=== PATIENT | female | born 1995 | race Caucasian/White ===

== ENCOUNTER 2017-04-22 20:12 | Emergency (ER) | payer BC, SELFPAY ==
[2017-04-22 20:59] VITALS: BP 159/100; PULSE 119; RESP 20; TEMP 36.6; O2SAT 97; BMI 51.6
--- NOTE | 2017-04-22 21:34 | HMH.EDUTC ---
[facility] Disposition Clinical Impression: Tinea corporis Disposition: Home, Self-Care Condition on Discharge: Good Instructions: DI for Tinea Corporis Additional Instructions: read attached education Prescriptions: Ketoconazole [Ketoconazole 2% Cream 15gm] 1 applicatio TOPICAL Q12H #15 gm Referrals: Ana David [Primary Care Provider] - (Immediately for new or worsening symptoms, if no steady improvement or if unresolved in 4 weeks) Time of Disposition: 21:52 Medical Decision Making Vital Signs: 04/22/17 20:59 Temperature 97.9 F Temperature Source Temporal Artery Scan Pulse Rate [Brachial] 119 H Respiratory Rate 20 Blood Pressure [Left Arm] 159/100 Blood Pressure Mean [Left Arm] 119 Blood Pressure Source [Left Arm] Automatic Cuff Blood Pressure Position [Left Arm] Sitting 02 Sat by Pulse Oximetry 97 Oxygen Delivery Method Room Air - Chapo Inquiry Pt receiving controlled substance: No [facility] HPI - General Stated complaint: rash behind both knees Time Seen by Provider: 04/22/17 21:34 Mode of Arrival: Ambulatory Source of Information: Patient Limitations: No Limitations Description of Symptoms (Recalled from Triage Doc. by RN): PT HAS RED [place] AREA ON THE BACK ON BOTH KNEES 4 INCHES IN DIAMETER, PRESENT FOR 1 WEEK AND NOW HAS PAIN. HEENT Symptoms (Recalled from RN notes): No Resp Symptoms (Recalled from RN notes): No Skin Symptoms (Recalled from RN notes): Yes MS Symptoms (Recalled from RN notes): No Functional Status (Recalled from RN notes): NA - History of Present Illness Provider Complaint: c/o rash behind shellie knees. First saw it today but had noticed burning /irritation there for nearly one week. I just thought dry skin Hasn't taken or tried anything for it. No one else at home w/ rash. No new contacts, meds, foods. Does have animals at home. two dogs that are both itching. again I just though due to dry skin . Spouse reports once does have a patch of hair missing. Hasn't paid attention to what the skin there looks like. They let this particular dog sleep in the bed 1-2 weeks ago. oh my gosh. right around the time this all started. - Related Data Home Medications Medication Instructions Recorded Confirmed Ferrous Sulfate [Ferrous Sulfate 325 mg PO DAILY 04/22/17 04/22/17 325mg Tablet] Levothyroxine Sodium [Synthroid 50 mcg PO DAILY 04/22/17 04/22/17 50mcg (0.05mg) tab] Lisinopril [Lisinopril 10mg Tab] 10 mg PO DAILY 04/22/17 04/22/17 Previous Rx's Medication Instructions Recorded Ketoconazole [Ketoconazole 2% 1 applicatio TOPICAL Q12H #15 gm 04/22/17 Cream 15gm] Allergies Allergy/AdvReac Type Severity Reaction Status Date / Time morphine Allergy Intermediate I-HIVES Verified 04/22/17 21:06 - Worker's Comp Is this a Worker's Comp case?: No H History I have reviewed the patient's past medical history: Yes Comment: HTN, hypothyroidism, scoliosis Other Surgeries: Yes: Other (scoliosis 2007 and ORIF 2015) Fractures: Yes (RT ARM 2015) - *Social History Alcohol Intake: never - Psychiatric History Expresses thoughts of harming self/others: None Suicide Plan Description: No Plan ROS Obtained: Yes Systems reviewed as appropropriate & no additional complaint - Constitutional Denies body ache(s), Denies chills, Denies fatigue, Denies fever(s) - Eyes Denies itchy eyes - ENT Denies sore throat - Respiratory Denies shortness of breath - Gastrointestinal Denies nausea, Denies vomiting - Musculoskeletal Denies joint pain - Integumentary/Breasts Reports rash - Neurologic Denies numbness, Denies tingling Physical Exam - General General appearance: alert, obese - Respiratory Respiratory exam: Absent: respiratory distress - Cardiovascular Cardiovascular exam: Present: tachycardia - Extremities Exam Extremities exam: Present: other (FROM shellie knee, nontender) - Neurological Exam Neurological exam: Present: alert, or
--- NOTE | 2017-04-22 21:38 | ED_ITS ---
[facility] [place] Impression: Tinea corporis Disposition: Home, Self-Care Condition on Discharge: Good Instructions: DI for Tinea Corporis Additional Instructions: read attached education Prescriptions: Ketoconazole [Ketoconazole 2% Cream 15gm] 1 applicatio TOPICAL Q12H #15 gm Referrals: Ana David [Primary Care Provider] - (Immediately for new or worsening symptoms, if no steady improvement or if unresolved in 4 weeks) Time of Disposition: 21:52 Medical Decision Making Vital Signs: 04/22/17 20:59 Temperature 97.9 F Temperature Source Temporal Artery Scan Pulse Rate [Brachial] 119 H Respiratory Rate 20 Blood Pressure [Left Arm] 159/100 Blood Pressure Mean [Left Arm] 119 Blood Pressure Source [Left Arm] Automatic Cuff Blood Pressure Position [Left Arm] Sitting 02 Sat by Pulse Oximetry 97 Oxygen Delivery Method Room Air - Chapo Inquiry Pt receiving controlled substance: No [facility] [place] - General Stated complaint: rash behind both knees Time Seen by Provider: 04/22/17 21:34 Mode of Arrival: Ambulatory Source of Information: Patient Limitations: No Limitations Description of Symptoms (Recalled from Triage Doc. by RN): PT HAS RED [place] AREA ON THE BACK ON BOTH KNEES 4 INCHES IN DIAMETER, PRESENT FOR 1 WEEK AND NOW HAS PAIN. HEENT Symptoms (Recalled from RN notes): No Resp Symptoms (Recalled from RN notes): No Skin Symptoms (Recalled from RN notes): Yes MS Symptoms (Recalled from RN notes): No Functional Status (Recalled from RN notes): NA - History of Present Illness Provider Complaint: c/o rash behind shellie knees. First saw it today but had noticed burning /irritation there for nearly one week. I just thought dry skin Hasn't taken or tried anything for it. No one else at home w/ rash. No new contacts, meds, foods. Does have animals at home. two dogs that are both itching. again I just though due to dry skin . Spouse reports once does have a patch of hair missing. Hasn't paid attention to what the skin there looks like. They let this particular dog sleep in the bed 1-2 weeks ago. oh my gosh. right around the time this all started. - Related Data Home Medications Medication Instructions Recorded Confirmed Ferrous Sulfate [Ferrous Sulfate 325 mg PO DAILY 04/22/17 04/22/17 325mg Tablet] Levothyroxine Sodium [Synthroid 50 mcg PO DAILY 04/22/17 04/22/17 50mcg (0.05mg) tab] Lisinopril [Lisinopril 10mg Tab] 10 mg PO DAILY 04/22/17 04/22/17 Previous Rx's Medication Instructions Recorded Ketoconazole [Ketoconazole 2% 1 applicatio TOPICAL Q12H #15 gm 04/22/17 Cream 15gm] Allergies Allergy/AdvReac Type Severity Reaction Status Date / Time morphine Allergy Intermediate I-HIVES Verified 04/22/17 21:06 - Worker's Comp Is this a Worker's Comp case?: No H History I have reviewed the patient's past medical history: Yes Comment: HTN, hypothyroidism, scoliosis Other Surgeries: Yes: Other (scoliosis 2007 and ORIF 2015) Fractures: Yes (RT ARM 2015) - *Social History Alcohol Intake: never - Psychiatric History Expresses thoughts of harming self/others: None Suicide Plan Description: No Plan ROS Obtained: Yes Systems reviewed as appropropriate & no additional complaint - Constitutional Denies body ache(s), Denies chills, Denies fatigue, Denies fe
== END 2017-04-22 21:53 | disposition home or self-care (01) ==
PROVIDERS: Emergency Provider Nurse Practitioner Family; PCP Physician Assistant
DX: B35.4 Tinea corporis (principal); Z79.899 Other long term (current) drug therapy; I10 Essential (primary) hypertension; E03.9 Hypothyroidism, unspecified
CPT/HCPCS: 99202

== ENCOUNTER 2021-04-16 11:06 | Emergency (ER) | payer BC, SELFPAY ==
[2021-04-16 12:30] VITALS: BP 174/107; PULSE 86; RESP 16; TEMP 36.7; O2SAT 95; BMI 52.9
--- NOTE | 2021-04-16 12:41 | HMH.EDUTC ---
[facility] [place]: Adverse effects of medication Qualifiers: Encounter type: initial encounter Qualified Code(s): T50.905A - Adverse effect of unspecified drugs, medicaments and biological substances, initial encounter Disposition: Home, Self-Care Condition on Discharge: Good Instructions: Venlafaxine Additional Instructions: Follow up with the Doctor that prescribed your medication for adjustments and/or Changes Follow up with your Family Doctor for further treatment Go straight to the closest ER if your blood pressure continues to elevate or any worsening of symptoms Return if needed Referrals: Peg Seth APRN [Primary Care Provider] - As needed Time of Disposition: 12:55 Medical Decision Making - Chapo Inquiry Pt receiving controlled substance: No Chapo was queried for this patient: No Vital Signs: 04/16/21 12:30 04/16/21 12:59 Temperature 98.1 F 98.1 F Temperature Source Oral Pulse Rate 86 Pulse Rate [Left] 86 Respiratory Rate 16 16 Blood Pressure 174/107 H Blood Pressure [Right Arm] 174/107 H Blood Pressure Mean [Right Arm] 129 02 Sat by Pulse Oximetry 95 Medical Decision Narrative: Discussed with patient and recommended transfer to the ER for further work up and evaluation and patient declined Patient advised that we do not typically adjust anxiety/depression medication that is usually done by PCP or Behavioral Health Patient educated on elevated blood pressure and risks even and she still declined transfer States that she will try to get into the Doctor that prescribed the medication and go from there that she had already been to 2 different ER and no one had changed it [facility] [place] General Stated complaint: congestion Time Seen by Provider: 04/16/21 12:41 Mode of Arrival: Ambulatory Source of Information: Patient Limitations: No Limitations Description of Symptoms (Recalled from Triage Doc. by RN): 1wk ago pt was seen at [facility] and put on effexor for anxiety. pt went to [facility] last night and was told she is having an adverse reaction. pt is still taking effexor at this time. pt c/o dizziness, elevated BP, shakiness, and READ. HEENT Symptoms (Recalled from RN notes): Yes (dizziness and READ) Resp Symptoms (Recalled from RN notes): No Skin Symptoms (Recalled from RN notes): No MS Symptoms (Recalled from RN notes): No Functional Status (Recalled from RN notes): wnl - History of Present Illness Provider Complaint: Patient state that she was recently seen at [facility] and was put on Effexor States that she noticed she was having some side effects of the medication like dizzy, headache and blood pressure elevated State that she went to [facility] ER last night and they told her it was adverse effects of the medication and she needed to see someone to change her medication State that she tried to get into the Doctor that prescribed it and couldnt and then tried her PCP and she was out of town State that everyone she called told her to come in here to get the medication adjusted or changed - Related Data Home Medications Medication Instructions Recorded Confirmed Ferrous Sulfate [Iron] 325 mg PO DAILY 06/08/19 06/08/19 Fluoxetine HCl [Prozac] 20 mg PO DAILY 06/08/19 06/08/19 Levothyroxine Sodium [Synthroid 200 mcg PO DAILY 06/08/19 06/08/19 100mcg (0.1mg) tablet] Metformin HCl [Metformin HCl ER] 750 mg PO DAILY 06/08/19 06/08/19 lisinopriL [Lisinopril 20mg Tab] 20 mg PO DAILY 06/08/19 06/08/19 Allergies Allergy/AdvReac Type Severity Reaction Status Date / Time morphine Allergy Intermediate I-HIVES Verified 04/22/17 21:06 rituximab [From Rituxan] Allergy Verified 04/16/21 12:38 - Worker's Comp Is this a Worker's Comp case?: No [facility] History - Hepatitis A Screen Drug use history?: No High risk sexual behaviors?: No History of sexually transmitted infection?: No Currently employed?: No Childcare worker?: No Do you have indoor plumbing?: Yes Do you have
[2021-04-16 12:59] VITALS: BP 174/107; PULSE 86; RESP 16; TEMP 36.7
--- NOTE | 2021-04-16 13:00 | PC.NURSE ---
pt declines being sent to the ER for elevated BP and further work up.
== END 2021-04-16 13:02 | disposition home or self-care (01) ==
PROVIDERS: Emergency Provider Nurse Practitioner; PCP Nurse Practitioner Family
DX: T50.905A Adverse effect of unspecified drugs, medicaments and biological substances, initial encounter (principal); I16.1 Hypertensive emergency; R42 Dizziness and giddiness; F41.8 Other specified anxiety disorders; E11.9 Type 2 diabetes mellitus without complications; Z79.899 Other long term (current) drug therapy
CPT/HCPCS: 99202; G0463

== ENCOUNTER → 2022-02-03 09:20 | Outpatient (CLI) | payer BC, SELFPAY ==
[2022-02-03 20:33] LABS: Alanine Aminotransferase 26 U/L (12-78); Albumin Level 3.6 g/dl (3.5-5.0); Albumin/Globulin Ratio 1.6 (1.1-1.8); Alkaline Phosphatase 136 U/L (38-126); Anion Gap 14.4 mEq/L (5-15); Aspartate Amino Transferase 25 U/L (14-36); Bilirubin,Total 0.4 mg/dl (0.2-1.3); Blood Urea Nitrogen 10 mg/dl (7-17); Calcium 8.8 mg/dl (8.4-10.2); Carbon Dioxide 28 mmol/L (22.0-30.0); Chloride 99 mmol/L (98-107); Chol/HDL Ratio 4.5 (1-3.5); Cholesterol 183 mg/dl (140-200); Estimated Glomerular Filt Rate 119 ml/min (>60); GFR (African American) 144 ML/MIN (>60); Globulin 2.3 g/dL (1.3-3.2); Glucose 171 mg/dl (74-100); HDL Cholesterol 41 mg/dl (40-60); Potassium 4.4 mmoL/L (3.5-5.1); Sodium 137 mmol/L (136-145); Total Protein,Serum 5.9 g/dl (6.3-8.2); Triglycerides 189 mg/dl (30-150); VLDL Cholesterol 38 mg/dL (0-40)
[2022-02-03 20:41] LABS: Basophils # 0.1 K/mm3 (0-0.2); Basophils % 0.7 % (0.1-2.0); Eosinophils # 0.1 K/mm3 (0.0-0.4); Eosinophils % 0.9 % (0.1-12.0); Hematocrit 43.2 % (37.0-47.0); Hemoglobin 14.2 g/dL (12.2-16.2); Lymphocytes # 1.4 K/mm3 (0.7-4.5); Mean Corpuscular HGB Conc 32.9 g/dL (31.8-35.4); Mean Corpuscular Volume 76.1 fl (81-99); Mean Platelet Volume 9.4 fl (7.4-10.4); Monocytes # 0.6 K/mm3 (0.1-1.0); Monocytes % 5.5 % (1.7-9.3); Neutrophils # 8.5 K/mm3 (1.8-7.8); Platelet Count 249 K/mm3 (142-424); Red Blood Count 5.68 M/mm3 (4.20-5.40); Red Cell Distribution Width 16.3 % (11.5-17.5); White Blood Count 10.6 K/mm3 (4.8-10.8)
[2022-02-03 20:44] LABS: Direct LDL Cholesterol 109.63 mg/dL (100-129)
== END ==
PROVIDERS: PCP Nurse Practitioner Family; Visit Provider Nurse Practitioner Family
DX: Z00.00 Encounter for general adult medical examination without abnormal findings (principal); I10 Essential (primary) hypertension
CPT/HCPCS: 80053; 80061; 85025

== ENCOUNTER → 2022-02-04 13:00 | Outpatient (CLI) | payer BC, SELFPAY ==
[2022-02-04 13:49] LABS: Hemoglobin A1C 7.7 % (4.0-6.0)
[2022-02-05 14:03] LABS: Thyroid Stimulating Hormone 3.52 uIU/mL (0.465-4.68)
== END ==
PROVIDERS: PCP Nurse Practitioner Family; Visit Provider Nurse Practitioner Family
DX: J02.9 Acute pharyngitis, unspecified (principal); R73.03 Prediabetes; E03.9 Hypothyroidism, unspecified
CPT/HCPCS: 83036; 84443; 87070

== ENCOUNTER → 2023-01-24 09:45 | Outpatient (CLI) | payer BC, SELFPAY ==
[2023-01-24 17:19] LABS: Alanine Aminotransferase 39 U/L (12-78); Albumin Level 3.5 g/dl (3.5-5.0); Albumin/Globulin Ratio 1.5 (1.1-1.8); Alkaline Phosphatase 100 U/L (38-126); Anion Gap 12.3 mEq/L (5-15); Aspartate Amino Transferase 31 U/L (14-36); Bilirubin,Total 0.3 mg/dl (0.2-1.3); Blood Urea Nitrogen 7 mg/dl (7-17); Carbon Dioxide 25 mmol/L (22.0-30.0); Chloride 106 mmol/L (98-107); Chol/HDL Ratio 4.9 (1-3.5); Cholesterol 162 mg/dl (140-200); Estimated Glomerular Filt Rate 189 ml/min (>60); GFR (African American) 228 ML/MIN (>60); Globulin 2.3 g/dL (1.3-3.2); Glucose 288 mg/dl (74-100); HDL Cholesterol 33 mg/dl (40-60); Potassium 4.3 mmoL/L (3.5-5.1); Sodium 139 mmol/L (136-145); Total Protein,Serum 5.8 g/dl (6.3-8.2); Triglycerides 200 mg/dl (30-150); VLDL Cholesterol 40 mg/dL (0-40)
[2023-01-24 17:31] LABS: Basophils # 0.1 K/mm3 (0-0.2); Basophils % 0.8 % (0.1-2.0); Eosinophils # 0.1 K/mm3 (0.0-0.4); Eosinophils % 1.6 % (0.1-12.0); Hematocrit 44.4 % (37.0-47.0); Hemoglobin 14.1 g/dL (12.2-16.2); Lymphocytes # 1.4 K/mm3 (0.7-4.5); Lymphocytes % 19.6 % (10-50); Mean Corpuscular HGB Conc 31.8 g/dL (31.8-35.4); Mean Corpuscular Hemoglobin 25.3 pg (27.0-31.2); Mean Corpuscular Volume 79.4 fl (81-99); Mean Platelet Volume 10.5 fl (7.4-10.4); Monocytes # 0.5 K/mm3 (0.1-1.0); Monocytes % 6.2 % (1.7-9.3); Neutrophils # 5.2 K/mm3 (1.8-7.8); Neutrophils % 71.7 % (37.0-80.0); Platelet Count 160 K/mm3 (142-424); Red Blood Count 5.58 M/mm3 (4.20-5.40); Red Cell Distribution Width 16.1 % (11.5-17.5); White Blood Count 7.3 K/mm3 (4.8-10.8)
[2023-01-24 17:38] LABS: Triiodothryronine (T3) Uptake 34 % (23.5-40.5)
[2023-01-24 17:39] LABS: Free T4 (Free Thyroxine) 1.66 ng/dl (0.78-2.19)
[2023-01-24 17:52] LABS: Thyroid Stimulating Hormone 2.79 uIU/mL (0.465-4.68)
[2023-01-24 19:47] LABS: Hemoglobin A1C 10.4 % (4.0-6.0)
== END ==
PROVIDERS: PCP Nurse Practitioner Family; Visit Provider Nurse Practitioner Family
DX: E11.9 Type 2 diabetes mellitus without complications (principal); Z79.4 Long term (current) use of insulin; Z79.899 Other long term (current) drug therapy
CPT/HCPCS: 80053; 80061; 83036; 84436; 84439; 84443; 84479; 85025

== ENCOUNTER 2023-04-27 16:37 | Outpatient (CLI) | payer BC, SELFPAY ==
[2023-04-27 16:39] LABS: MANUAL DIFFERENTIAL MANUAL DIFFERENTIAL (MANUAL DIFF)
[2023-04-27 17:01] LABS: Basophils # 0.1 K/mm3 (0-0.2); Basophils % 0.8 % (0.1-2.0); Eosinophils # 0.1 K/mm3 (0.0-0.4); Eosinophils % 0.6 % (0.1-12.0); Hematocrit 45.7 % (37.0-47.0); Hemoglobin 14.8 g/dL (12.2-16.2); Lymphocytes # 1.9 K/mm3 (0.7-4.5); Lymphocytes % 22.5 % (10-50); Mean Corpuscular HGB Conc 32.5 g/dL (31.8-35.4); Mean Corpuscular Hemoglobin 26.2 pg (27.0-31.2); Mean Corpuscular Volume 80.6 fl (81-99); Mean Platelet Volume 9.8 fl (7.4-10.4); Monocytes # 0.4 K/mm3 (0.1-1.0); Monocytes % 5.1 % (1.7-9.3); Neutrophils % 70.9 % (37.0-80.0); Platelet Count 204 K/mm3 (142-424); Red Blood Count 5.66 M/mm3 (4.20-5.40); Red Cell Distribution Width 16.7 % (11.5-17.5); White Blood Count 8.4 K/mm3 (4.8-10.8)
[2023-04-27 18:08] LABS: Eosinophils % 2 % (0-3); Lymphocytes % 15 % (10-50); Microcytosis 1+; Monocytes % 6 % (2-9); Neutrophils % 77 % (42-76); Platelet Estimate Normal; Total Cells Counted 100
[2023-04-27 18:20] LABS: Hemoglobin A1C 11.8 % (4.0-6.0)
== END 2023-04-27 23:59 ==
LOC: LAB.DROPOF 16:38
PROVIDERS: PCP Family Medicine; Visit Provider Family Medicine
DX: E11.9 Type 2 diabetes mellitus without complications (principal); D69.3 Immune thrombocytopenic purpura; Z79.4 Long term (current) use of insulin
CPT/HCPCS: 83036; 85007; 85014; 85018; 85048; 85049

== ENCOUNTER 2023-08-30 10:12 | Outpatient (CLI) | payer BC, SELFPAY ==
--- NOTE | 2023-08-30 10:12 | CA_ITS ---
APPROVED REPORT EXAM: Comprehensive 2D, Doppler, and color-flow Echocardiogram Bingo Cashier: MARY Almaguer, RVS Ht: 5 ft 5 in Wt: 325lbs BSA: 2.43 BP: 137/100 mmHg Indications: Abnormal ECG, Pre-Op assessment, Hypertension/HDD Echo Enhancing Agent Comments: TDS due to extreme body habitus. 2D Dimensions IVSd 0.96 cm LVEF (Visual) 66.80 % PWd 1.11 cm LVDd 5.14 cm LVDs 3.23 cm Left Atrium 3.78 cm M-Mode Dimensions RVDd 3.18 cm (0.9-2.6) LA Diam 4.13 cm (1.9-4.0) LVDd 4.50 cm (3.5-5.7) LVDs 3.18 cm (3.5-5.7) IVSd 1.18 cm (0.6-1.1) PWd 1.07 cm (0.6-1.1) EF (Teich) 56.40% EPSs 0.75 cm FS 29.30% EDV (Teich) 92.40 mL TAPSE 1.98 (<1.7) ESV (Teich) 40.30 mL LV Diastology E Decel Time 227 (160-240 msec) E/A Ratio 1.47 MED A' 11.40 cm/s LAT A' 8.40 cm/s Aortic Valve JOSE Index 0.86 cm2/m2 AoV Peak Deandre. 117.0 (50-130 cm/s) AO Peak GR. 5.50 mmHg AO Mean GR. 2.70 (<5 mmHg) AO VTI 23.3 (18-25 cm) JOSE (VTI) 2.14 (2.5-4.5 cm2) Mitral Valve MV A Velocity 54.0 (40-130 cm/s) E/A Ratio 1.47 MV Mean Gr. 1.30 (<2mmHg) Pulmonary Valve PV Peak Velocity 69.0 (50-150 cm/s) Left Ventricle The left ventricle is normal size. The left ventricular systolic function is normal. The left ventricular ejection fraction is within the normal range. There is normal left ventricular wall thickness. There is normal LV segmental wall motion. The left ventricular diastolic function is normal. LVEF is 60%. Right Ventricle The right ventricle is normal size. The right ventricular systolic function is normal. Atria The left atrium size is normal. The right atrium size is normal. The interatrial septum is not well-visualized. Aortic Valve The aortic valve opens well. There is no aortic valvular stenosis. No aortic regurgitation is present. Mitral Valve The mitral valve is normal in structure. No evidence of mitral valve stenosis. There is no mitral valve regurgitation noted. Tricuspid Valve The tricuspid valve leaflets are thin and pliable. Trace tricuspid regurgitation. There is insufficient TR jet to estimate RVSP. Pulmonic Valve The pulmonary valve is normal in structure. Trace pulmonic regurgitation. Great Vessels The aortic root is normal in size. The ascending aorta is not well-visualized. The IVC is not well-visualized. Pericardium There is no pericardial effusion. Other Information Study Quality: Fair Conclusion Normal biventricular systolic function. No significant valvular stenosis or regurgitation. Electronically signed by : Nellie Sr MD 09/01/2023 00:18:03
== END 2023-08-30 23:59 | disposition home or self-care (01) ==
LOC: RT 10:12
PROVIDERS: PCP Family Medicine; Visit Provider Nurse Practitioner
DX: Z01.818 Encounter for other preprocedural examination (principal); R07.9 Chest pain, unspecified; R94.31 Abnormal electrocardiogram [ECG] [EKG]; Z82.49 Family history of ischemic heart disease and other diseases of the circulatory system
CPT/HCPCS: 93306

== ENCOUNTER 2023-09-16 13:58 | Outpatient (CLI) | payer BC, SELFPAY ==
--- NOTE | 2023-09-16 13:59 | CA_ITS ---
APPROVED REPORT Exam: Exercise Treadmill Technologist: Ritu Botello, Ht: 5 ft 5 in Wt: 329 lbs BSA: 2.44 m2 HR: 109 bpm BP: 146/101 mmHg Rhythm: Sinus tach, low voltage QRS, nonspecific T wave abn Medical History Medications: Levothyroxine,,,,, Metformin,,,,, Ferrous sulfate,,,,, Buspirone,,,,, INSULIN,,,,, BisOPROLOL Fumarate,,,,, Sertraline,,,,, Lancets,,,,, Aripiprasole,,,,, Cardiac Risk Factors: HTN, Diabetes (insulin) Stress Test Details Test: Jonathan HR Resting HR: 124 bpm Max Heart Rate (APMHR): 190 bpm Max HR Achieved: 171 bpm Target HR (85% APMHR): 162 bpm % of APMHR: 90 Recovery HR: 152 bpm HR response to stress: Normal HR response to stress BP Resting BP: 154.0/97 mmHg Max BP: 222/108 mmHg Recovery BP: 222.0/108.0 mmHg BP response to stress: Abnormal hypertensive response to stress. ECG Resting ECG: Sinus tach, low voltage QRS, nonspecific T wave abn Stress EC.[address] depression Arrhythmia: PVCs Recovery ECG: Return to baseline within 3 minutes of recovery Recovery Arrhythmia: PVCs Clinical Exercise duration: 04:26 min Highest Stage Achieved: Exercise capacity: 7.0 METs Overall Exercise Capacity for Age: Fair Stress ECG Conclusion During jonathan protocol pt walked total of 4:26 minutes. The patient was able to achieve a total of 7.0 METS. She has fair exercise capacity compared to age and sex matched peers. She has normal HR, but exaggerated hypertensive BP, response to exercise. No CP noted. Ectopy: Occasional PVC. ST changes: 0.[address] depression Conclusion: Fair exercise capacity. Hypertensive response to exercise. No new ECG changes suggestive of ischemia at peak stress Test Summary REST . . . . . . . Sitting REST . . . . . . . Standing REST 04:36 0.0 0.0 124 . 154/ 97 . . Stage 1 01:00 10.0 1.7 132 . . . . Stage 1 02:00 10.0 1.7 146 . . . . Stage 1 03:00 10.0 1.7 154 . 208/100 . . Stage 2 01:00 12.0 2.5 167 . . . . Stage 2 01:26 12.0 2.5 170 . . . Stop exercise at 04:26 RECOVERY 01:00 0.0 0.0 149 . . . . RECOVERY 02:00 0.0 0.0 132 . . . . RECOVERY 03:00 0.0 0.0 123 . 222/108 . . RECOVERY 04:00 0.0 0.0 120 . 222/108 . . RECOVERY 05:00 0.0 0.0 122 . 210/ 96 . . RECOVERY 06:00 0.0 0.0 119 . 210/ 96 . . RECOVERY 06:50 0.0 0.0 121 . 161/ 80 . . Electronically signed by : Nellie Sr MD 09/21/2023 09:49:17
== END 2023-09-16 23:59 | disposition home or self-care (01) ==
LOC: RT 13:59
PROVIDERS: PCP Family Medicine; Visit Provider Nurse Practitioner
DX: Z01.818 Encounter for other preprocedural examination (principal); R07.9 Chest pain, unspecified; R94.31 Abnormal electrocardiogram [ECG] [EKG]; Z82.49 Family history of ischemic heart disease and other diseases of the circulatory system
CPT/HCPCS: 93017; 93018

== ENCOUNTER 2023-10-05 06:32 | Day surgery (SDC) | payer BC, SELFPAY ==
[2023-10-03 14:01] VITALS: BMI 54.9
[2023-10-05] VITALS (7 sets, daily range): BP systolic 113–139; BP diastolic 68–102; PULSE 91–102; RESP 16–18; TEMP 36.3–36.6; O2SAT 93–99
[2023-10-05] MEDS: LACTATED RINGERS 1000ML 1,000 ML 25 ML IV (07:01)
--- NOTE | 2023-10-05 07:18 | SUR.PREOP ---
FSBS 363, informed Boyd Serrano STATION ENGINEER, no new orders at this time.
[2023-10-05 07:19] LABS: Urine Pregnancy, HCG Qual. Negative (Negative)
[2023-10-05 07:20] LABS: POC Glucose,Bedside 363 (70-110)
--- NOTE | 2023-10-05 07:21 | EXP.ANES.CKL ---
[facility] Disclaimer: The information contained in this section may have been updated after the patient was seen, as this information can be updated by other users. Medical History Acute ITP Diabetes Pre-op testing Abnormal ECG Chest pain Sleep apnea with use of continuous positive airway pressure (CPAP) Chronic ITP (idiopathic thrombocytopenic purpura) Depression with anxiety PCOS (polycystic ovarian syndrome) Prediabetes Hypothyroid Hypertension Hypertensive emergency Neck pain Left shoulder pain Tinea corporis Surgical History History of surgery on arm Previous back surgery Family History Mother Diabetes Hypertension Father Diabetes Family history of hypertension Social History Smoking Status: Never smoker alcohol intake: never substance use type: denies use 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) Travel in the last 8 weeks: None household members: spouse housing: house caffeine: No [facility] Anesthesia Checklist Patient Identification Patient Identification: Arm Band, Family and Verbal (Name & ) Structural Data Admitted From: Home Planned Operative Procedure/s: EGD Consent for Planned Operative Procedure(s) Verified: Yes Verified Documents: Surgical Consent and History and Physical NPO Status Verified Time NPO: 20:00 Chart Verification Results Verified: CBC, BMP, ECG, Chest Xray and HCG Additional verifications Fingerstick Blood Glucose: 363 Patient : No Anesthesia Reactions: No Cardiovascular Assessment Heart Sounds: S1 & S2 Pulse Rhythm: Irregular Peripheral Edema: No Airway Assessment Mallampati Score:: Class II C-Spine Mobility Assessed: Yes TMJ Mobility Assessed: Yes Dentition: Good Dentition (Nothing loose per pt.) Neurological Assessment Level of Consciousness: Awake, Alert, Appropriate and Follows Commands Hx Seizures: No Numbness or tingling in extremities: No Anesthesia Plan Anesthesia Risk discussed: Yes Anesthesia Plan: Verified ASA Class: III Anesthesia Type: MAC
--- NOTE | 2023-10-05 07:38 | HMH.SCOPE ---
Procedure: Date: 10/05/23 Patient Date of :: 1995 Procedure Performed:: Esophagogastroduodenoscopy with biopsy Indications:: Planned bariatric intervention Gastroesophageal reflux Performing Provider:: Herman Hemphill MD Referring Provider:: . Sedation:: Monitored anesthesia care Procedure:: After informed consent was obtained the patient was taken to the endoscopy suite. Sedation ensued after the patient was transferred to the left lateral decubitus position. Pulse, blood pressure, and oxygen saturation were monitored throughout the procedure. The endoscope was advanced beyond the duodenal bulb. Retroflexion within the gastric lumen was accomplished. The gastroscope was carefully removed and the patient was transferred to recovery in stable condition. Please see findings and specimens below for detail. Findings:: Gastroesophageal junction at 40 cm Focal mild distal esophagitis without definitive stricture Undigested/partially-digested food particles within stomach Specimens:: Antral biopsy Recommendations:: Follow-up pathology Proton pump inhibition (OTC) Concerns for possible gastroparesis noted Complications:: No immediate Estimated blood obtained (mL): 1 Colonoscopy Component Colonoscopy Component Was a colonoscopy performed during today's procedure?: No
--- NOTE | 2023-10-05 07:47 | EXP.ANES.I ---
[facility] Anesthesia Record Part I Anesthesia Record I Intake, IV Amount: 300 Hydration: Adequate Estimated blood loss (mL): 1 Urine output (mL): 0 Blood Products used (#): none Blood Pressure: 124/91 SaO2: 94 Pulse Rate: 101 Airway Patency: Patent Respiratory Rate: 18 Temperature: 97.4 F Patient is:: Awake (TALKING) and Stable Stable to PACU at:: 07:49
[2023-10-05 07:59] LABS: POC Glucose,Bedside 341 (70-110)
== END 2023-10-05 08:14 | disposition home or self-care (01) ==
PROVIDERS: PCP Family Medicine; Visit Provider Surgery
PROC: 0DJ08ZZ Inspection of Upper Intestinal Tract, Via Natural or Artificial Opening Endoscopic (ICD-10-PCS; CPT 43235; principal; 2023-10-05 07:30)
DX: K21.00 Gastro-esophageal reflux disease with esophagitis, without bleeding (principal); K29.50 Unspecified chronic gastritis without bleeding; Z79.899 Other long term (current) drug therapy
CPT/HCPCS: 43239; 81025; 82962; J7120

== ENCOUNTER 2024-01-10 12:28 | Outpatient (CLI) | payer BC, SELFPAY ==
[2024-01-10 13:00] LABS: Basophils # 0.1 K/mm3 (0-0.2); Basophils % 0.7 % (0.1-2.0); Eosinophils # 0.1 K/mm3 (0.0-0.4); Eosinophils % 0.8 % (0.1-12.0); Hematocrit 41.8 % (37.0-47.0); Hemoglobin 13.1 g/dL (12.2-16.2); Lymphocytes # 1.9 K/mm3 (0.7-4.5); Lymphocytes % 16.1 % (10-50); Mean Corpuscular HGB Conc 31.4 g/dL (31.8-35.4); Mean Corpuscular Hemoglobin 24.9 pg (27.0-31.2); Mean Corpuscular Volume 79.2 fl (81-99); Mean Platelet Volume 7.4 fl (7.4-10.4); Monocytes # 0.6 K/mm3 (0.1-1.0); Monocytes % 5.1 % (1.7-9.3); Neutrophils # 9.3 K/mm3 (1.8-7.8); Neutrophils % 77.3 % (37.0-80.0); Platelet Count 204 K/mm3 (142-424); Red Blood Count 5.28 M/mm3 (4.20-5.40); Red Cell Distribution Width 16.8 % (11.5-17.5)
[2024-01-10 13:11] LABS: INR 0.88 (0.9-1.1)
[2024-01-10 13:30] LABS: Albumin Level 3.7 g/dl (3.5-5.0); Chloride 103 mmol/L (98-107); Potassium 4.3 mmoL/L (3.5-5.1); Sodium 136 mmol/L (136-145)
[2024-01-10 13:33] LABS: Alanine Aminotransferase 28 U/L (12-78); Albumin/Globulin Ratio 1.8 (1.1-1.8); Anion Gap 7.3 mEq/L (5-15); Aspartate Amino Transferase 24 U/L (14-36); Blood Urea Nitrogen 12 mg/dl (7-17); Carbon Dioxide 30 mmol/L (22.0-30.0); Estimated Glomerular Filt Rate 117 ml/min (>60); GFR (African American) 142 ML/MIN (>60); Globulin 2.1 g/dL (1.3-3.2); Total Protein,Serum 5.8 g/dl (6.3-8.2)
[2024-01-10 13:34] LABS: Alkaline Phosphatase 95 U/L (38-126); Bilirubin,Total 0.4 mg/dl (0.2-1.3); Calcium 9.3 mg/dl (8.4-10.2); Glucose 211 mg/dl (74-100)
[2024-01-10 14:00] LABS: Thyroid Stimulating Hormone 4.74 uIU/mL (0.465-4.68)
== END 2024-01-10 23:59 | disposition home or self-care (01) ==
LOC: LAB 12:30
PROVIDERS: PCP Family Medicine; Visit Provider Family Medicine
DX: J40 Bronchitis, not specified as acute or chronic (principal)
CPT/HCPCS: 36415; 80050; 80053; 84443; 85025; 85610

== ENCOUNTER 2024-02-02 10:27 | Outpatient (CLI) | payer BC, SELFPAY ==
--- NOTE | 2024-02-02 10:37 | XR_ITS ---
FINAL REPORT CLINICAL HISTORY: pneumonia vs atelectasis COMPARISON: 06/09/2019 FINDINGS: 2 views of the chest were obtained . The heart is normal in size. The mediastinum is within normal limits. The lungs are underinflated. There is mild right base atelectasis. There is no pneumothorax. Osseous structures demonstrate posterior fusion hardware. IMPRESSION: Underinflation with mild right base atelectasis. Reviewed, Interpreted and Dictated by Eris Engle MD Transcribed by Daja Reid Authenticated and [facility]
[2024-02-02 10:51] LABS: Basophils # 0.1 K/mm3 (0-0.2); Eosinophils # 0.1 K/mm3 (0.0-0.4); Eosinophils % 1.7 % (0.1-12.0); Hematocrit 37.6 % (37.0-47.0); Hemoglobin 12.4 g/dL (12.2-16.2); Lymphocytes # 1.6 K/mm3 (0.7-4.5); Mean Corpuscular HGB Conc 33.1 g/dL (31.8-35.4); Mean Corpuscular Hemoglobin 25.2 pg (27.0-31.2); Mean Corpuscular Volume 76.2 fl (81-99); Mean Platelet Volume 7.7 fl (7.4-10.4); Monocytes # 0.4 K/mm3 (0.1-1.0); Monocytes % 5.6 % (1.7-9.3); Neutrophils # 4.4 K/mm3 (1.8-7.8); Neutrophils % 67.6 % (37.0-80.0); Platelet Count 271 K/mm3 (142-424); Red Blood Count 4.93 M/mm3 (4.20-5.40); Red Cell Distribution Width 16.9 % (11.5-17.5); White Blood Count 6.5 K/mm3 (4.8-10.8)
[2024-02-02 11:27] LABS: Anion Gap 3.4 mEq/L (5-15); Blood Urea Nitrogen 10 mg/dl (7-17); Calcium 9.1 mg/dl (8.4-10.2); Carbon Dioxide 31 mmol/L (22.0-30.0); Chloride 106 mmol/L (98-107); Estimated Glomerular Filt Rate 145 ml/min (>60); GFR (African American) 175 ML/MIN (>60); Glucose 181 mg/dl (74-100); Potassium 4.4 mmoL/L (3.5-5.1); Sodium 136 mmol/L (136-145)
== END 2024-02-02 23:59 | disposition home or self-care (01) ==
LOC: LAB 10:28
PROVIDERS: PCP Family Medicine; Visit Provider Family Medicine
DX: J98.11 Atelectasis (principal)
CPT/HCPCS: 36415; 71046; 80048; 85025

== ENCOUNTER 2024-04-13 15:09 | Outpatient (CLI) | payer BC, SELFPAY ==
--- NOTE | 2024-04-13 15:12 | XR_ITS ---
FINAL REPORT CLINICAL HISTORY: pneumonia FINDINGS: CHEST 2 VIEWS PA AND LATERAL The heart is normal in size. The mediastinum is unremarkable. The lungs are clear. There is no pneumothorax. Posterior fusion rods are seen bridging the thoracic spine. There is scoliosis convex to the right measuring 25 degrees. IMPRESSION: No acute process. Reviewed, Interpreted and Dictated by Eris Engle MD Transcribed by Minerva Chahal Authenticated and [facility]
== END 2024-04-13 23:59 | disposition home or self-care (01) ==
LOC: RAD 15:10
PROVIDERS: PCP Family Medicine; Visit Provider Nurse Practitioner Family
DX: J18.9 Pneumonia, unspecified organism (principal)
CPT/HCPCS: 71046

== ENCOUNTER 2024-04-29 02:32 | Emergency (ER) | payer BC, SELFPAY ==
--- NOTE | 2024-04-29 02:35 | HMH.EDGENADL ---
Discharge Plan Disposition Patient Disposition: Home, Self-Care Prescriptions Prescriptions: New benzonatate 100 mg capsule 100 mg PO Q6H PRN (Reason: cough) Qty: 30 0RF No Action (DME) blood-glucose meter [Blood Glucose Monitoring] Kit See Rx Instructions .Route Qty: 1 0RF Rx Instructions: As directed (DME) lancets 31 gauge misc See Rx Instructions .Route Qty: 100 3RF Rx Instructions: As directed sertraline 100 mg tablet 150 mg PO DAILY (DME) pen needle, diabetic [BD Ultra-Fine Micro Pen Needle] 32 gauge x 1/4 needle See Rx Instructions .ROUTE .MEDSUPPLY Qty: 100 Patient Comments: USE EVERY DAY Rx Instructions: As directed insulin lispro protamin-lispro 100 unit/mL (75-25) insulin pen 100 unit SQ BID Patient Comments: INJECT 30U TWICE A DAY AND ADJUST DIRECTED TITRATE DIRECTED (MAX DAILY DOSE 100U) aripiprazole [Abilify] 20 mg tablet 20 mg PO ONCE Patient Comments: TAKE 1/2 TABLET BY MOUTH TWICE A DAY hydroxyzine pamoate [Vistaril] 25 mg capsule 25 mg PO NEEDED PRN (Reason: Anxiety) Patient Comments: TAKE 1 CAPSULE BY MOUTH TWICE A DAY NEEDED FOR ANXIETY buspirone 15 mg tablet 15 mg PO TID amlodipine 5 mg tablet 5 mg PO DAILY omeprazole 20 mg capsule,delayed release(DR/EC) 20 mg PO DAILY enoxaparin 40 mg/0.4 mL syringe 40 mg SQ BID albuterol sulfate 90 mcg/actuation HFA aerosol inhaler 2 inh inhalation Q6H Qty: 6.7 2RF prednisone 50 mg tablet 50 mg PO DAILY 5 Days Qty: 5 0RF doxycycline hyclate 100 mg capsule 100 mg PO BID 10 Days Qty: 20 0RF ferrous sulfate 325 mg (65 mg iron) tablet 325 mg PO DAILY 90 Days Qty: 90 3RF (DME) OneTouch Verio test strips Strip See Rx Instructions .ROUTE .COMPLEX Qty: 50 3RF Dose Instruction: USE DIRECTED FOR DIABETES Rx Instructions: USE DIRECTED FOR DIABETES bisoprolol fumarate 5 mg tablet 5 mg PO DAILY 90 Days Qty: 90 0RF levothyroxine 175 mcg tablet 175 mcg PO DAILY 90 Days Qty: 90 0RF Referrals Follow up/Referrals: Eric Freier MD [Primary Care Provider] - See instructions Activity Restrictions/Add. Instructions Additional Instructions/Restrictions: Recommend following up with your PCP for further assessment. Please return to the emergency department if you develop any new or worsening symptoms or become concerned for your health. Clinical Impressions Clinical Impression: URI, acute, Cough, Thrombocytopenia, History of ITP Print Language Print Language: Trinidadian Discharge ED Provider: Gabriel Young General Adult HPI General Chief complaint: Upper Respiratory Infection Stated complaint: cough, headache, sore throat, SOA Time Seen by Provider: 04/29/24 02:35 History of Present Illness HPI narrative: 29-year-old female with history of obesity, type 2 diabetes, ITP, status post gastric bypass and January presents for recurrent respiratory symptoms. She reports she was seen in urgent care on April 08 and diagnosed with pneumonia and given an antibiotic. Her symptoms did not improve and so she was seen by PCP and prescribed Doxy and prednisone. She reports her symptoms did improve for about a week and a half but now have worsened again. She describes nonproductive cough, central burning chest pain worsened by cough, mild shortness of breath. She denies fever at home. She reports that there is no chance she be . Denies any other recent surgery, is not on any contraceptives Related Data Home Medications ?Medication ?Instructions ?Recorded ?Confirmed buspirone 15 mg tablet 15 mg PO TID 11/16/21 04/13/24 sertraline 100 mg tablet 150 mg PO DAILY Depression 08/17/22 04/13/24 pen needle, diabetic 32 gauge x #100 ea 06/22/23 04/13/2404/21 (BD Ultra-Fine Micro Pen Needle) aripiprazole 20 mg tablet (Abilify) 20 mg PO ONCE 07/22/23 04/13/24 hydroxyzine pamoate 25 mg capsule 25 mg PO NEEDED PRN Anxiety 07/22/23 04/13/24 (Vistaril) insulin lispro protamine-lispro 100 unit SQ BID 09/14/23 04/13/24 100 unit/mL (75-25) subcutaneous pen amlodipine 5 mg tablet 5 mg PO DAILY 02/02/24 04/13/24 enoxaparin 40 mg/0.4 mL 40 mg SQ BID 02/02/24 04/13/24 subcutaneous syringe omeprazole 20 mg capsule,delayed 20 mg PO DAILY 02/02/24 04/13/24 release Previous Rx's ?Medication ?Instructions ?Recorded blood-glucose meter (Blood Glucose #1 ea 06/22/22 Monitoring kit) lancets 31 gauge #100 ea 06/22/22 ferrous sulfate 325 mg (65 mg 325 mg PO DAILY Supplement 90 days 06/08/23 iron) tablet #90 tabs blood sugar diagnostic (OneTouch #50 strips 09/13/23 Verio test strips) bisoprolol fumarate 5 mg tablet 5 mg PO DAILY HTN 90 days #90 tabs 12/23/23 albuterol sulfate 90 mcg/actuation 2 inh inhalation Q6H #6.7 grams 04/09/24 aerosol inhaler doxycycline hyclate 100 mg capsule 100 mg PO BID 10 days #20 caps 04/13/24 prednisone 50 mg tablet 50 mg PO DAILY 5 days #5 tabs 04/13/24 levothyroxine 175 mcg tablet 175 mcg PO DAILY 90 days #90 tabs 04/25/24 benzonatate 100 mg capsule 100 mg PO Q6H PRN cough #30 caps 04/29/24 Allergies Allergy/AdvReac Type Severity Reaction Status Date / Time morphine Allergy Intermediate I-HIVES Verified 04/13/24 14:18 rituximab (From Rituxan) Allergy Verified 04/13/24 14:18 [facility] Disclaimer: The information contained in this section may have been updated after the patient was seen, as this information can be updated by other users. Medical History Acute ITP Diabetes Pre-op testing Abnormal ECG Chest pain Sleep apnea with use of continuous positive airway pressure (CPAP) Chronic ITP (idiopathic thrombocytopenic purpura) Depression with anxiety PCOS (polycystic ovarian syndrome) Prediabetes Hypothyroid Hypertension Continue current treatment. 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) Travel in the last 8 weeks: None household members: spouse housing: house caffeine: No Have you lived/traveled outside [place] in past 30 days?: No Contact w/someone who lives/traveled outside [place] past 30 days?: No Exposure to someone with infectious disease in past 14 days?: No Do you have a fever (greater than 100.4 F or 38 C)?: No Have you tested positive for COVID-19: No Exposed to someone with COVID-19 in past 14 days?: No Do you have a sore throat?: Yes Do you have a cough?: Yes Do you have any weakness?: No Do you have any diarrhea?: No Are you experiencing any unusual bleeding?: No Do you have any muscle aches/pain?: No Do you have any abdominal pain?: No Are you experiencing loss of taste or smell?: No Other Medical History Have you received the Flu Vaccine for this season: Yes Have you received the Pneumonia Vaccine: No ROS Obtained: Yes All systems reviewed & no additional complaints except as documented Physical Exam General General appearance: alert and in no apparent distress Head Head exam: atraumatic and normocephalic Eye Eye exam: Present normal appearance, PERRL and EOMI ENT ENT exam: Present normal oropharynx and normal external ear exam Neck Neck exam: Present normal inspection and full ROM Chest Chest inspection: Present normal inspection and symmetric chest wall rise; Absent tenderness Respiratory Respiratory exam: Present normal lung sounds bilaterally; Absent respiratory distress Cardiovascular Cardiovascular exam: Present normal rhythm and tachycardia Abdominal Exam Abdominal exam: Present soft; Absent distention, tenderness or guarding Extremities Exam Extremities exam: Present normal inspection; Absent edema or joint swelling Back Exam Back exam: Present normal inspection; Absent tenderness Neurological Exam Neurological exam: Present alert and oriented X3; Absent motor sensory deficit Psychiatric Psychiatric exam: Present normal affect and normal mood Skin Skin exam: Present warm, dry and normal color Lymphatic Lymphatic Findings: no adenopathy Medical Decision Making Medical Records Medical records reviewed: Yes I reviewed the patient's medical records. Screening: Per USPSTF and CDC recommendations, given the prevalence of disease in our region, it is our hospital?s policy to screen for HIV and viral Hepatitis for all patients aged 18 and over and those with ongoing risk factors. Chapo Inquiry Pt receiving controlled substance: No Chapo was queried for this patient: No Vital Signs: 04/29/24 02:37 04/29/24 03:01 Temperature 98.4 F Temperature Source Oral Pulse Rate 124 H Pulse Rate [Right Brachial] 138 H Respiratory Rate 20 Blood Pressure 140/101 H Blood Pressure [Right Arm] 167/111 H Blood Pressure Mean [Right Arm] 129 Blood Pressure Source [Right Arm] Manual Cuff/ Doppler Blood Pressure Position [Right Arm] Sitting 02 Sat by Pulse Oximetry 98 97 Oxygen Delivery Method Room Air Lab Data Lab results reviewed: Yes I reviewed the patient's lab results. Lab Results 04/29/24 03:06: SARS-CoV-2 (PCR) Not detected, Influenza A Untype (PCR) Not detected, Influenza Type B (PCR) Not detected 04/29/24 03:40: WBC 8.3, RBC 5.61 H, Hgb 13.9, Hct 42.8, MCV 76.3 L, MCH 24.8 L, MCHC 32.5, RDW 15.5, Plt Count 99 L, MPV 11.2 H, Neut % (Auto) 67.6, Lymph % (Auto) 19.9, [place] % (Auto) 10.0 H, Eos % (Auto) 1.3, Baso % (Auto) 0.6, Neut # (Auto) 5.6, Lymph # (Auto) 1.7, [place] # (Auto) 0.8, Eos # (Auto) 0.1, Baso # (Auto) 0.1, D-Dimer 0.57 H, Sodium 136, Potassium 3.8, Chloride 102, Carbon Dioxide 25, Anion Gap 12.8, BUN 6 L, Creatinine 0.50 L, Estimated Creat Clear 147, Estimated GFR 144, Est GFR ( Amer) 174, Glucose 237 H, Calcium 9.2, Total Bilirubin 0.4, AST 44 H, ALT 65, Alkaline Phosphatase 109, Total Protein 6.3, Albumin 4.0, Globulin 2.3, Albumin/Globulin Ratio 1.7 04/29/24 03:40 04/29/24 03:40 Orders (Tests/Meds): ORDERS Category Date Time Status CXR 2 view (NOT portable) [XR chest 2V] Stat Exams 04/29/24 03:05 Completed CBC w/Auto Diff [Complete Blood Count Auto Diff] Stat Lab 04/29/24 03:40 Completed CMP [Comprehensive Metabolic Panel] Stat Lab 04/29/24 03:40 Completed D-Dimer Stat Lab 04/29/24 03:40 Completed Rapid PCR Covid and Flu A/B Stat Lab 04/29/24 03:06 Completed Medical Decision Narrative: 29-year-old female with history of diabetes, anxiety depression hypertension presents for cough, congestion, burning chest pain, shortness of breath. See [facility] for details. History was obtained via interactive discussion with patient chart review. On arrival, patient is afebrile, tachycardic to 120 when I was in the room, mildly hypertensive, breathing comfortably satting appropriately on room air. Moving all extremities spontaneously. Full physical exam performed and significant for clear lungs bilaterally Differential includes but is not limited to viral/bacterial pneumonia, URI, pericarditis, PE . Workup initiated including EKG CBC CMP D-dimer chest x-ray two-view, COVID flu swab. On re-evaluation, patient remains mildly tachycardic with rate around 110-115 Laboratory workup independently interpreted by me and significant for negative D-dimer by years criteria. No significant electrolyte derangement. No significant leukocytosis. Patient's platelets are 99, lower than normal for her Imaging independently interpreted by me and significant for faint viral appearance, no focal consolidation. See radiology read for full review of final results. EKG independently interpreted by me and significant for sinus tachycardia with rate of 112, no ND depression, ST elevation, or evidence of arrhythmia. Documented at 0354. Given patient history, exam and workup, patient's presentation most likely represents recurrent viral infection. No evidence of emergent pathology on chest x-ray EKG or blood work. Patient's mild thrombocytopenia may be a manifestation of ITP, but she does not feel like her symptoms are consistent with the last time she had a flare. These findings were communicated with patient and she was discharged in stable conditions with return precautions and instructions to follow-up with PCP for further assessment recheck of labs. Procedures Risk/Benefits of Procedure(s) Were Explained: Yes Critical Care Critical Care Time Critical Care Time: No
[2024-04-29 02:37] VITALS: BP 167/111; PULSE 138; RESP 20; TEMP 36.9; O2SAT 98; BMI 114.8
[2024-04-29 03:01] VITALS: BP 140/101; PULSE 124; O2SAT 97
--- NOTE | 2024-04-29 03:05 | XR_ITS ---
PROCEDURE INFORMATION: Exam: XR Chest Exam date and time: 04/29/2024 3:01 AM Age: 29 years old Clinical indication: Cough and other: Cough, congestion, tachycardia TECHNIQUE: Imaging protocol: Radiologic exam of the chest. Views: 2 views. COMPARISON: No relevant prior studies available. FINDINGS: Lungs: Unremarkable. No consolidation. Pleural spaces: Unremarkable. No pleural effusion. No pneumothorax. Heart/Mediastinum: Unremarkable. No cardiomegaly. Bones/joints: Partially included posterior thoracolumbar fusion rods. IMPRESSION: No acute findings.
[2024-04-29 03:33] LABS: Coronavirus 19, PCR Not Detected (NotDetected); Influenza A, PCR Not Detected (NotDetected); Influenza B, PCR Not Detected (NotDetected)
--- NOTE | 2024-04-29 03:49 | ECG_ITS ---
APPROVED REPORT Exam: Resting ECG HR:112 bpm ECG Measurements Heart Rate 112 AXES [place] 143 P 48 QRSd 90 QRS 48 QT 314 T 30 QTc 381 Conclusion SINUS TACHYCARDIA NONSPECIFIC T-WAVE ABNORMALITY ABNORMAL RHYTHM ECG UNCONFIRMED REPORT Electronically signed by : VANDA NOBLE, 04/29/2024 06:32:37
[2024-04-29 03:56] LABS: Alanine Aminotransferase 65 U/L (12-78); Albumin/Globulin Ratio 1.7 (1.1-1.8); Alkaline Phosphatase 109 U/L (38-126); Anion Gap 12.8 mEq/L (5-15); Aspartate Amino Transferase 44 U/L (14-36); Bilirubin,Total 0.4 mg/dl (0.2-1.3); Blood Urea Nitrogen 6 mg/dl (7-17); Calcium 9.2 mg/dl (8.4-10.2); Carbon Dioxide 25 mmol/L (22.0-30.0); Chloride 102 mmol/L (98-107); Creatinine Clearance Estimated 147 mL/min (50-200); Estimated Glomerular Filt Rate 144 ml/min (>60); GFR (African American) 174 ML/MIN (>60); Globulin 2.3 g/dL (1.3-3.2); Glucose 237 mg/dl (74-100); Potassium 3.8 mmoL/L (3.5-5.1); Sodium 136 mmol/L (136-145); Total Protein,Serum 6.3 g/dl (6.3-8.2)
[2024-04-29 04:01] LABS: D-Dimer 0.57 ug/mL (0.0-0.5)
[2024-04-29 04:14] LABS: Basophils # 0.1 K/mm3 (0-0.2); Basophils % 0.6 % (0.1-2.0); Eosinophils # 0.1 K/mm3 (0.0-0.4); Eosinophils % 1.3 % (0.1-12.0); Hematocrit 42.8 % (37.0-47.0); Hemoglobin 13.9 g/dL (12.2-16.2); Lymphocytes # 1.7 K/mm3 (0.7-4.5); Lymphocytes % 19.9 % (10-50); Mean Corpuscular HGB Conc 32.5 g/dL (31.8-35.4); Mean Corpuscular Hemoglobin 24.8 pg (27.0-31.2); Mean Corpuscular Volume 76.3 fl (81-99); Mean Platelet Volume 11.2 fl (7.4-10.4); Monocytes # 0.8 K/mm3 (0.1-1.0); Neutrophils # 5.6 K/mm3 (1.8-7.8); Neutrophils % 67.6 % (37.0-80.0); Platelet Count 99 K/mm3 (142-424); Red Blood Count 5.61 M/mm3 (4.20-5.40); Red Cell Distribution Width 15.5 % (11.5-17.5); White Blood Count 8.3 K/mm3 (4.8-10.8)
[2024-04-29 04:30] VITALS: BP 159/114; PULSE 111; RESP 20; TEMP 36.1; O2SAT 96
== END 2024-04-29 04:34 | disposition home or self-care (01) ==
PROVIDERS: Emergency Provider Emergency Medicine; PCP Family Medicine
DX: D69.6 Thrombocytopenia, unspecified (principal); J06.9 Acute upper respiratory infection, unspecified; R07.9 Chest pain, unspecified; R06.02 Shortness of breath; R05.9 Cough, unspecified; R51.9 Headache, unspecified; J02.9 Acute pharyngitis, unspecified; Z86.2 Personal history of diseases of the blood and blood-forming organs and certain disorders involving the immune mechanism
CPT/HCPCS: 71046; 80053; 85025; 85378; 87636; 93005; 99284

== ENCOUNTER 2024-09-04 17:30 | Outpatient (CLI) | payer BC, SELFPAY ==
[2024-09-04 17:17] LABS: Basophils # 0.1 K/mm3 (0-0.2); Basophils % 0.5 % (0.1-2.0); Eosinophils # 0.1 Kmm3 (0.0-0.4); Eosinophils % 0.6 % (0.1-12.0); Hematocrit 42.3 % (37.0-47.0); Hemoglobin 13.4 g/dL (12.2-16.2); Immature Granulocytes # 0.03 10^3uL; Immature Granulocytes % 0.3 %; Lymphocytes # 1.7 K/mm3 (0.7-4.5); Lymphocytes % 17.1 % (10-50); Mean Corpuscular HGB Conc 31.7 g/dL (31.8-35.4); Mean Corpuscular Hemoglobin 24.8 pg (27.0-31.2); Mean Corpuscular Volume 78.2 fl (81-99); Mean Platelet Volume 11.7 fl (7.4-10.4); Monocytes # 0.7 K/mm3 (0.1-1.0); Monocytes % 6.8 % (1.7-9.3); Neutrophils # 7.5 K/mm3 (1.8-7.8); Neutrophils % 74.7 % (37.0-80.0); Nucleated Red Blood Cells # 0 10^3/uL; Nucleated Red Blood Cells % 0 %; Platelet Count 182 K/mm3 (142-424); Red Blood Count 5.41 M/mm3 (4.20-5.40); Red Cell Distribution Width 14.7 % (11.5-17.5); Red Cell Distribution Width-SD 41.1 fL
[2024-09-04 18:03] LABS: Alanine Aminotransferase 37 U/L (12-78); Albumin Level 3.8 g/dl (3.5-5.0); Albumin/Globulin Ratio 1.9 (1.1-1.8); Alkaline Phosphatase 99 U/L (38-126); Aspartate Amino Transferase 38 U/L (14-36); Bilirubin,Total 0.4 mg/dl (0.2-1.3); Blood Urea Nitrogen 10 mg/dl (7-17); Carbon Dioxide 26 mmol/L (22.0-30.0); Chloride 104 mmol/L (98-107); Chol/HDL Ratio 4.4 (1-3.5); Cholesterol 131 mg/dl (140-200); Estimated Glomerular Filt Rate 186 ml/min (>60); GFR (African American) 225 ML/MIN (>60); Glucose 146 mg/dl (74-100); HDL Cholesterol 30 mg/dl (40-60); Sodium 136 mmol/L (136-145); Total Protein,Serum 5.8 g/dl (6.3-8.2); Triglycerides 226 mg/dl (30-150); VLDL Cholesterol 45 mg/dL (0-40)
[2024-09-04 18:14] LABS: Direct LDL Cholesterol 74.15 mg/dL (100-129)
[2024-09-04 18:16] LABS: Hemoglobin A1C 7.1 % (4.0-6.0)
[2024-09-04 18:20] LABS: 25-OH Vitamin D, Total < 12.8 ng/mL (30-100)
[2024-09-04 18:24] LABS: Free Thyroxine Index 2.7 ug/dL (5.93-13.13); T4 (Thyroxine) 8.5 ug/dl (5.53-11.0); Triiodothryronine (T3) Uptake 32 % (23.5-40.5)
[2024-09-04 18:49] LABS: Vitamin B12 359 pg/mL (239-931)
[2024-09-04 19:16] LABS: Iron 44 ug/dL (37-170)
[2024-09-04 19:26] LABS: Total Iron Binding Capacity 302 ug/dL (265-497)
== END 2024-09-04 23:59 | disposition home or self-care (01) ==
LOC: LAB.DROPOF 17:31
PROVIDERS: PCP Nurse Practitioner Family; Visit Provider Nurse Practitioner Family
DX: D69.6 Thrombocytopenia, unspecified (principal); E03.9 Hypothyroidism, unspecified; R73.03 Prediabetes
CPT/HCPCS: 80053; 80061; 82306; 82607; 83036; 83540; 83550; 84436; 84443; 84479; 85025

== ENCOUNTER 2024-10-07 10:18 | Observation (INO) | payer BC, SELFPAY ==
[2024-10-07] VITALS (11 sets, daily range): BP systolic 132–154; BP diastolic 48–110; PULSE 63–104; RESP 14–20; TEMP 36.5–36.6; O2SAT 96–100; BMI 48.4
--- NOTE | 2024-10-07 10:55 | CT_ITS ---
PROCEDURE INFORMATION: Exam: CT Temporal Bones Without Contrast. Exam date and time: 10/07/2024 12:15 PM Age: 29 years old Clinical indication: Other: Ear pain; Additional info: Malignant otitis externa, right ear pain, recent ear piercing TECHNIQUE: Imaging protocol: Computed tomography of the temporal bones without contrast. Radiation optimization: All CT scans at this facility use at least one of these dose optimization techniques: automated exposure control; mA and/or kV adjustment per patient size (includes targeted exams where dose is matched to clinical indication); or iterative reconstruction. COMPARISON: CT HEAD/BRAIN WO CON 06/08/2019 9:51 PM FINDINGS: Right inner ear: Normal. Right ossicles and middle ear: Normal. The middle ear ossicles are intact. Right external auditory canal: Normal. Right facial nerve canal: Normal. Right jugular foramen: No jugular dehiscence. Right carotid canal: No aberrant carotid canal. Right mastoid air cells: Normal. No mastoid effusions. Left inner ear: Normal. Left ossicles and middle ear: Normal. The middle ear ossicles are intact. Left external auditory canal: Normal. Left facial nerve canal: Normal. Left jugular foramen: No jugular dehiscence. Left carotid canal: No aberrant carotid canal. Left mastoid air cells: Normal. No mastoid effusions. Soft tissues: There is mild asymmetric thickening of the right pinna. IMPRESSION: No abnormality in the temporal bones. Mildly symmetric thickening of the right pinna. Please correlate with contrast-enhanced CT of the facial bones and neck performed the same day.
--- NOTE | 2024-10-07 10:55 | CT_ITS ---
PROCEDURE INFORMATION: Exam: CT Neck With Contrast Exam date and time: 10/07/2024 12:21 PM Age: 29 years old Clinical indication: Other: Ear pain; Additional info: Malignant otitis externa, right ear pain TECHNIQUE: Imaging protocol: Computed tomography of the neck with contrast. Radiation optimization: All CT scans at this facility use at least one of these dose optimization techniques: automated exposure control; mA and/or kV adjustment per patient size (includes targeted exams where dose is matched to clinical indication); or iterative reconstruction. Contrast material: ISOVUE; Contrast volume: 75 ml; Contrast route: IV; COMPARISON: CT FACIAL BONES W CON 10/07/2024 12:17 PM FINDINGS: Auditory system: There is notable asymmetric thickening and enhancement of the cartilage of the right pinna and lateral external auditory canal. No drainable fluid collection is appreciated Salivary glands: No soft tissue mass. Pharynx: Unremarkable. No significant tonsillar enlargement. Larynx: Unremarkable. Epiglottis is normal. Thyroid: Normal. No enlarged or calcified nodules. Trachea: Visualized trachea is unremarkable. Lungs: Unremarkable as visualized. Lymph nodes: Scattered shotty parotid, preauricular and level IIa cervical lymph nodes are noted on the right, likely reactive. Bones/joints: No bony destruction. Soft tissues: Unremarkable. No significant soft tissue swelling. IMPRESSION: Inflammation in the right pinna and cartilaginous external auditory canal. No drainable fluid collection or soft tissue mass. Reactive lymphadenopathy adjacent.
--- NOTE | 2024-10-07 11:00 | CT_ITS ---
PROCEDURE INFORMATION: Exam: CT Maxillofacial With Contrast Exam date and time: 10/07/2024 12:17 PM Age: 29 years old Clinical indication: Other: Ear pain, concern malignant otitis externa; Additional info: Ear pain, concern malignant otitis externa. Area of interest is right mastoid. Recent ear piercing. TECHNIQUE: Imaging protocol: Computed tomography of the face with contrast. Radiation optimization: All CT scans at this facility use at least one of these dose optimization techniques: automated exposure control; mA and/or kV adjustment per patient size (includes targeted exams where dose is matched to clinical indication); or iterative reconstruction. Contrast material: ISOVUE; Contrast volume: 75 ml; Contrast route: IV; COMPARISON: CT MASTOID W/O 10/07/2024 12:15 PM FINDINGS: Paranasal sinuses: No air-fluid levels. Orbital cavities: Orbits are normal. Globes are unremarkable. Bones: There is notable inflammatory thickening and enhancement of the cartilage of the right pinna and the external portion of cartilaginous external auditory canal. No drainable fluid collection is identified. Soft tissues: Unremarkable. IMPRESSION: Inflammatory thickening of the cartilaginous right external auditory canal and pinna. No drainable fluid collection. No bony destruction.
--- NOTE | 2024-10-07 11:02 | ED_ITS ---
Discharge Plan Disposition Patient Disposition: Admitted Discharge ED Provider: Enid Fisher General Adult HPI General Chief complaint: Ear Stated complaint: Cellulitis of ear- Has not gotten better Time Seen by Provider: 10/07/24 10:28 Mode of Arrival: Ambulatory Source of Information: Patient Description of Symptoms (Recalled from ER Triage Doc. by RN): r ear pain. on clinda that she got from [email or web address] yesterday. [place] got infeccted. currently draining. denies fever History of Present Illness HPI narrative: Patient is a 29-year-old with past medical history significant for ITP hypothyroidism type 2 diabetes obesity hypertension presents to the emergency department with ear pain. Patient had a piercing that was removed 2 days ago after increased swelling to the ear developed. Patient has been on clindamycin is taken for 2 days without improvement of symptoms. Patient has severe pain. Related Data Home Medications ?Medication ?Instructions ?Recorded ?Confirmed buspirone 15 mg tablet 15 mg PO ONCE 11/16/2110/07 sertraline 100 mg tablet 150 mg PO DAILY Depression 0 08/17/22 10/07/24 Previous Rx's ?Medication ?Instructions ?Recorded ferrous sulfate 325 mg (65 mg 325 mg PO DAILY Suppleme nt 90 days 06/08/23 iron) tablet #90 tabs bisoprolol fumarate 5 mg tablet 5 mg PO DAILY HTN 90 d ays #90 tabs 12/23/23 levothyroxine 175 mcg tablet 175 mcg PO DAILY 90 days #90 tabs 04/25/24 amlodipine 5 mg tablet 5 mg PO DAILY #90 tabs 08/22 aripiprazole 15 mg tablet (Abilify) 15 mg PO DAILY #30 tabs 09/04/24 cholecalciferol (vitamin D3) 1,250 1,250 mcg PO WEEKLY #5 caps 09/04/24 mcg (50,000 unit) capsule Allergies Allergy/AdvReac Type Severity Reaction Status Date / Time morphine Allergy Intermediate I-HIVES Verified 09/04/24 10:04 rituximab (From Rituxan) Allergy Verified 09/04/24 10:04 [facility] Disclaimer: The information contained in this section may have been updated after the patient was seen, as this information can be updated by other users. Medical History Need for tuberculosis vaccination Hypothyroidism (07/29/23) Sleep apnea (07/29/23) Type 2 diabetes mellitus (07/29/23) Essential hypertension (07/29/23) Morbid obesity (07/29/23) Acute ITP Diabetes Pre-op testing Abnormal ECG Chest pain Sleep apnea with use of continuous positive airway pressure (CPAP) Chronic ITP (idiopathic thrombocytopenic purpura) Depression with anxiety PCOS (polycystic ovarian syndrome) Prediabetes Hypothyroid Hypertension Hypertensive emergency Neck pain Left shoulder pain Tinea corporis Surgical History History of gastric bypass History of esophagogastroduodenoscopy (EGD) History of surgery on arm Previous back surgery Family History Mother Diabetes Hypertension Father Diabetes Family history of hypertension Social History (Updated 10/07/24 @ 15:10 by Sara Delvalle RN) Smoking Status: Never smoker alcohol intake: never substance use type: denies use 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) Travel in the last 8 weeks?: None household members: spouse housing: house caffeine: No Have you lived/traveled outside US in past 30 days?: No Contact w/someone who lives/traveled outside US past 30 days?: No Exposure to someone with infectious disease in past 14 days?: No Do you have a fever (greater than 100.4 F or 38 C)?: No Have you tested positive for COVID-19?: No Exposed to someone with COVID-19 in past 14 days?: No Do you have a sore throat?: No Do you have a cough?: No Do you have any weakness?: No Do you have any diarrhea?: No Are you experiencing any unusual bleeding?: No Do you have any muscle aches/pain?: No Do you have any abdominal pain?: No Are you experiencing loss of taste or smell?: No Other Medical History Have you received the Flu Vaccine for this season: Yes Have you received the Pneumonia Vaccine: No ROS Obtained: Yes All systems reviewed & no additional complaints except as documented Physical Exam General General appearance: alert and in no apparent distress Head Head exam: atraumatic Eye Eye exam: Present EOMI ENT ENT exam: Present normal exam (Erythema and swelling of the right pinna with purulence draining from prior site, tenderness to the mastoid without protrusion of the auricle) Neck Neck exam: Present normal inspection; Absent tenderness Respiratory Respiratory exam: Present normal lung sounds bilaterally and respiratory distress Cardiovascular Cardiovascular exam: Present regular rate and normal rhythm Abdominal Exam Abdominal exam: Present soft; Absent tenderness Neurological Exam Neurological exam: Present alert and oriented X3 Skin Skin exam: Present warm and dry Medical Decision Making Medical Records Screening: Per USPSTF and CDC recommendations, given the prevalence of disease in our region, it is our hospital?s policy to screen for HIV and viral Hepatitis for all patients aged 18 and over and those with ongoing risk factors. [place] Inquiry Pt receiving controlled substance: No Vital Signs: 10/07/24 10:26 10/07/24 10:28 10/07/24 10:31 Temperature 98 F Temperature Source Oral Pulse Rate 100 H 104 H Pulse Rate [Right] 90 Respiratory Rate 20 Blood Pressure 152/104 H 132/110 H Blood Pressure [Right Arm] 152/104 H Blood Pressure Mean Blood Pressure Mean [Right Arm] 120 02 Sat by Pulse Oximetry 98 96 98 Oxygen Delivery Method Room Air 10/07/24 11:00 10/07/24 12:38 10/07/24 13:00 Temperature Temperature Source Pulse Rate 70 68 63 Pulse Rate [Right] Respiratory Rate 18 18 18 Blood Pressure 154/100 H 135/89 133/90 Blood Pressure [Right Arm] Blood Pressure Mean 115 104 104 Blood Pressure Mean [Right Arm] 02 Sat by Pulse Oximetry 99 97 98 Oxygen Delivery Method 10/07/24 13:30 10/07/24 14:00 10/07/24 14:50 Temperature Temperature Source Pulse Rate 73 73 Pulse Rate [Right] Respiratory Rate 18 Blood Pressure 140/94 H 132/92 H Blood Pressure [Right Arm] Blood Pressure Mean 106 Blood Pressure Mean [Right Arm] 02 Sat by Pulse Oximetry 97 100 Oxygen Delivery Method Room Air 10/07/24 14:57 Temperature 98 F Temperature Source Pulse Rate 75 Pulse Rate [Right] Respiratory Rate 16 Blood Pressure 132/90 Blood Pressure [Right Arm] Blood Pressure Mean Blood Pressure Mean [Right Arm] 02 Sat by Pulse Oximetry Oxygen Delivery Method Lab Data Lab Results 10/07/24 11:30: WBC 8.3, RBC 5.54 H, Hgb 13.7, Hct 42.8, MCV 77.3 L, MCH 24.7 L, MCHC 32.0, RDW 15.1, Plt Count 169, MPV 10.6 H, Neut % (Auto) 72.8, Lymph % (Auto) 16.9, Payette % (Auto) 8.3, Eos % (Auto) 1.0, Baso % (Auto) 0.5, Neut # (Auto) 6.1, Lymph # (Auto) 1.4, Payette # (Auto) 0.7, Eos # (Auto) 0.1, Baso # (Auto) 0.0, ESR 10, Sodium 138, Potassium 4.4, Chloride 101, Carbon Dioxide 28, Anion Gap 13.4, BUN 9, Creatinine 0.40 L, Estimated Creat Clear 183, Estimated GFR 186, Est GFR ( Amer) 225, Glucose 233 H, Hemoglobin A1c 8.7 H, Calcium 8.9, Total Bilirubin 0.5, AST 37 H, ALT 34, Alkaline Phosphatase 91, C- Reactive Protein 41.0 H, Total Protein 6.8, Albumin 4.1, Globulin 2.7, Albumin/Globulin Ratio 1.5, Serum HCG, Qual Negative 10/07/24 11:30 10/07/24 11:30 Orders (Tests/Meds): ED MEDICATIONS Generic Name Dose Route Start Last Admin Trade Name Freq PRN Reason Stop Dose Admin Acetaminophen 650 mg 10/07/24 15:22 Acetaminophen 325mg Tab PO 11/06/24 15:21 Q4HP PRN Fever or Mild Pain (1-3) Enoxaparin Sodium 40 mg 10/08/24 09:00 Enoxaparin 40mg/0.4ml Syringe SUBCUT 11/07/24 08:59 DAILY JACKIE Hydromorphone HCl 0.5 mg 10/07/24 10:55 10/07/24 11:41 Hydromorphone 2mg/Ml Syringe IV 11/06/24 10:54 0.5 mg Q2HP PRN Administration Severe Pain (7-10) Piperacillin Sod/Tazobactam 100 mls @ 200 mls/hr 10/07/24 11:00 10/07/24 11:40 Sod 4.5 gm/ Sodium Chloride IV 10/17/24 10:59 200 mls/hr Q6H JACKIE Administration Insulin Human Lispro 0 unit 10/07/24 16:30 Humalog 100 Units/Ml 10ml Vial (Ssi) SUBCUT 11/06/24 16:29 ACHS [facility] Protocol Ondansetron HCl 4 mg 10/07/24 15:22 Ondansetron 4mg/2ml Vial IV 11/06/24 15:21 Q6HP PRN Nausea Discontinued Medications Generic Name Dose Route Start Last Admin Trade Name Freq PRN Reason Stop Dose Admin Lactated Ringer's 1,000 mls @ 999 mls/hr 10/07/24 11:00 10/07/24 11:40 Lactated Ringer's 1000 Ml Bag IV 10/07/24 12:00 999 mls/hr .Q1H1M ONE Administration Vancomycin HCl 2,250 mg/ 250 mls @ 125 mls/hr 10/07/24 11:30 10/07/24 12:27 Sodium Chloride IV 10/07/24 13:29 125 mls/hr ONCE ONE Administration Iopamidol 75 ml 10/07/24 12:17 10/07/24 12:18 Iopamidol-370 (76%);100ml Bottle IV 10/07/24 12:18 75 ml ONCE ONE Administration Miscellaneous 1 each 10/07/24 11:00 10/07/24 12:55 Vancomycin Consult Request NOTAPPLIC 11/06/24 10:59 1 each CONSULT PHARMACY [facility] Administration Sodium Chloride 10 ml 10/07/24 12:17 10/07/24 12:18 Sodium Chloride 0.9% 10ml Syr (Rad Only) IV 10/07/24 12:18 10 ml ONCE ONE Administration ORDERS Category Date Time Status CT facial bones w con Stat Cat Scan 10/07/24 11:[address] mastoid W/O Stat Cat Scan 10/07/24 10:[address] soft tissue neck w con Stat Cat Scan 10/07/24 10:55 Completed C-Reactive Protein Stat Lab 10/07/24 11:30 Completed Complete Blood Count Auto Diff Stat Lab 10/07/24 11:30 Completed Comprehensive Metabolic Panel Stat Lab 10/07/24 11:30 Completed Erythrocyte Sedimentation Rate Stat Lab 10/07/24 11:30 Completed HCG Qualitative, Serum Stat Lab 10/07/24 11:30 Completed Hemoglobin A1C Stat Lab 10/07/24 11:30 Completed Blood Culture Stat Micro 10/07/24 11:30 Received Medical Decision Narrative: In summary, this 29-year-old female presents to the emergency department today with ear pain. On initial evaluation patient is tachycardic normotensive afebrile saturating appropriately on room air no acute distress. Differential diagnosis includes but is not limited to malignant otitis externa bullous myringitis mastoiditis. Based on these concerns, I ordered CBC CMP ESR beta-hCG hemoglobin A1c blood culture CRP CT soft tissue neck and face with IV contrast CT mastoid without contrast. Patient received 1 L of LR with Zosyn, vancomycin, Dilaudid for treatment. Labs personally reviewed demonstrate hyperglycemia elevated CRP CT imaging personally interpreted demonstrate stranding of the pinna without osseous destruction of the mastoid. I had an interactive discussion with hospital medicine with recommendations to admit for malignant otitis externa Critical Care Critical Care Time Critical Care Time: No
--- OUTSIDE RECORDS SUMMARY | 2024-10-07 11:13 | XMS_ITS | Continuity of Care Document ---
Author Name Jeanna Faust Address [address] [place] [id number] Organization Unknown Address [address] [place] [id number] Medications No known medications Problems No known problems
--- OUTSIDE RECORDS SUMMARY | 2024-10-07 11:13 | XMS_ITS | Clinical Summary ---
Author Organization [facility] Address [address] [place] [address] Care Team Providers Care Title Examiner Name Role Phone Eric Freire MD Primary Care Provider [phone] Allergies Active Allergy Reactions Criticality Noted Date Comments Morphine Hives High 03/26/2022 Rituximab Other (See Comments) 10/21/2022 Scratchy throat, hotness , sweating Medications ARIPiprazole (ABILIFY) 20 MG tablet Take 0.5 tablets (10 mg total) by mouth 2 (two) times daily. 2 Active bisoprolol (ZEBETA) 5 MG tablet Take 1 tablet (5 mg total) by mouth daily. 3 Active busPIRone (BUSPAR) 15 MG tablet Take 1 tablet (15 mg total) by mouth 3 (three) times daily. 2 Active levothyroxine (SYNTHROID, LEVOTHROID) 175 MCG tablet Take 1 tablet (175 mcg total) by mouth daily. 2 Active metFORMIN (GLUCOPHAGE) 500 MG tablet Take by mouth. 2 Active NIFEdipine (ADALAT CC) 30 MG 24 hr tablet Take 1 tablet (30 mg total) by mouth daily. 2 Active sertraline (ZOLOFT) 100 MG tablet Take 1.5 tablets (150 mg total) by mouth daily. 2 Active ferrous sulfate 325 (65 FE) MG tablet Take 1 tablet (325 mg total) by mouth daily. Active NORETHINDRONE AC-ETH ESTRADIOL ORAL Take by mouth. Active semaglutide (OZEMPIC SUBQ) Inject subcutaneously. Active insulin lispro (HumaLOG) 100 unit/mL injection Inject subcutaneously 3 (three) times daily before meals. Active amLODIPine (NORVASC) 5 MG tablet Take 1 tablet (5 mg total) by mouth daily. Active Active Problems Problem Noted Date Diagnosed Date Immune thrombocytopenic purpura 03/26/2022 Iron deficiency anemia, unspecified 03/26/2022 Family History Medical History Relation Name Comments Clotting disorder Father Diabetes Father Diabetes Mother Hypertension Mother Sleep apnea Mother Relation Name Status Comments Father Mother Social History Tobacco Use Types Packs/Day Years Used Date Smoking Tobacco: Never Smokeless Tobacco: Never Alcohol Use Standard Drinks/Week Comments Never 0 (1 standard drink = 0.6 oz pur e alcohol) Interpersonal Safety Answer Date Record ed Family or friends hurt you Not on file 04/27 Family or friends insult you Not on file 01/2024 Family or friends threaten you Not on file 0 04/27/2023 Family or friends scream or curse at you Not on file 04/27/2023 Housing Stability Answer Date Recorded Living situation today Not on file Living situation problems Not on file 2023 Family and Community Support Answer Gilberto e Recorded Help with Day to Day Activities Not on file 04/27/2023 Feeling Lonely or Isolated Not on file 04/27 Educational Attainment Answer Date Benito rded Speak language other than Spanish at home Not on file 04/27/2023 Want help with school or training Not on file 04/27/2023 Depression Answer Date Recorded PHQ-2 Risk Not on file 04/27/2023 Disabilities Answer Date Recorded Difficulty concentrating Not on file 024 Difficulty doing errands alone Not on file 0 04/27/2023 Substance Use Answer Date Recorded Used prescription meds for non-medical reasons N ot on file 04/27/2023 Used illegal drugs past 12 months Not on file 04/27/2023 Comments No Sex and Gender Information Value Date Recorded Sex Assigned at Not on file Legal Sex Female 6:38 PM CDT Gender Identity Not on file Sexual Orientation Not on file 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 Not on file Not on file Not on file Last Filed Vital Signs Vital Sign Reading Time Taken Comments Blood Pressure 135/99 05/11/2024 8:40 AM EST Pulse 84 05/11/2024 8:40 AM EST Temperature 36.3 C (97.3 F) 05/11/2024 8:40 AM EST Respiratory Rate 18 05/11/2024 8:40 AM EST Oxygen Saturation 97% 05/11/2024 8:40 AM EST Inhaled Oxygen Concentration - - Weight 139.8 kg (308 lb 3.2 oz) 05/11/2024 8:40 AM EST Height 165.1 cm (5' 5 ) 05/11/2024 8:40 AM EST Body Mass Index 51.29 05/11/2024 8:40 AM EST Plan of Treatment Upcoming Encounters Date Type Department Care Team (Late st Contact Info) Description 11/16/2024 8:15 AM EDT Office Visit [facility] - [address] [facility] [address] [place] [address] Aime Walker MD [address] [place] [address] Health Maintenance Due Date Last Done Comments Diabetic Kidney Health Evaluation (KED) 1993 Diabetic Eye Exam 2003 Diabetic foot exam 2003 Depression Screening (12+) 2005 HIV Screening 2008 Hepatitis C Screening 2011 Pneumococcal Vaccine: 0-49 Y ears (1 of 2 - PCV) 2012 Lipid Panel 2013 Pap Smear 2014 COVID-19 VACCINE (3 - 2023- season) 2023, 06/11/2020 Hemoglobin A1C 02/17/2024 11/17/2023 Influenza Vaccine (Season Ended) 2024 Tobacco Cessation Counseling and Screening (12+) 05/11/2025 05/11/2024 DTAP/TDAP/TD VACCINES (3 - Td or Tdap) 08/30/2025, 06/27/1998 Procedures Procedure Name Priority Date/Time Associated Diagnosis Comments HEMOGLOBIN A1C Routine 11/17/2023 12:50 PM EDT 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 Less than 7% demonstrates glycemic control in diabetic patients. Hemoglobin AlC % Suggested Diagnosis > or = 6.5 Diabetic 5.7 - 6.4 Prediabetic <5.7 Non-diabetic eAVG Glucose 271.87 mg/dL 11/17/2023 1:28 PM EDT [facility] Blood Venipuncture / Unknown 11/17/2023 12:50 PM EDT 11/17/2023 12:57 PM EDT us Libby Valderrama INTAKE RN LAB BLOOD ORDERABLES F inal Result [facility] [address] [place] [address] from Last 3 Months or Most Recently Relevant to Health Maintenance Insurance [employer] Care Teams Title Examiner Relationship Specialty Start Date End Date Eric Freire MD [address] [place] [id number] PCP - General Family Medicine 06/08/23
--- OUTSIDE RECORDS SUMMARY | 2024-10-07 11:14 | XMS_ITS | Continuity of Care Document ---
Author Organization [facility], [facility] Address [address] [address] [place] [address] Care Team Providers Care Storage Battery Tester Name Role Phone TAHIR CABALLERO Primary Care Provider MADHURI COATS Weather Forecaster Assessment Encounter Date Assessment Date Assessment LastModified by Organization Details LastModified Time 09/25/2024 09/25/2024 Ms. Michael is a 29 yo F sp OAGB on 01/23/24 [facility] Not available 09/25/2024 12:17:52 Plan of Treatment Reminders Order Date Submit Date Provider Last Modified By Organization Details Last Modified Time Details Appointments Video - Bariatric F/U 2024 09:30A M Dr. Jeanna Faust Not available Not available Not available Lab None recorded. Referral None recorded. Procedures None recorded. Surgeries None recorded. Imaging None recorded. Medication Orders None recorded. Patient TargetsNo targets recorded. Patient InstructionsNo instructions recorded. Reason for Referral None Reported. Problems Name Problem SNOMED Code Status Onset Date Resolution Date Notes Provider Name and Address Organization Details Recorded Time Primary ITP (immune thrombocytopen ia) 848673057 Active 2023 Irene harris [facility] 16:35:27 Morbid obesity 546956481 Active 2023 Irene harris [facility] 17:16:15 Type 2 diabetes mellitus 56379554 Active 2023 Irene harris [facility] 17:18:17 Essential hypertension 60812997 Active 2023 Irene harris, [facility] 4 17:18:28 Hypothyroidism 72348160 Active 2023 Irene harris, [facility] 4 17:25:14 Sleep apnea 07813364 Active 2023 Irene harris, [facility] 4 17:25:31 Abdominal pain 22189848 Active 2024 KURTIS JEROME MD [address], [place], [address], [facility] 5 11:50:27 Problem Notes None recorded. Procedures Surgical History Date Name Laterality Status Provider Name and Address Organization Details Recorded Time 5 Telehealth completed KURTIS JEROME MD [address], [place], [address], [facility] 09/25/2024 11:09:21 5 Telehealth completed KURTIS JEROME MD [address], [place], [address], [facility] 06/18/2024 11:41:07 4 Telehealth completed Angela [address], [place], [address], [facility] 02/10/2024 11:37:12 4 Telehealth completed KURTIS JEROME MD [address], [place], [address], [facility] 01/12/2024 21:10:13 4 Telehealth completed Angela [address], [place], [address], [facility] 11/17/2023 17:17:48 4 Telehealth completed Angela [address], [place], [address], [facility] 08/22/2023 11:08:39 6 Other completed Angela [address], [place], [address], [place] [facility] 11/17/2023 17:25:08 8 Back Surgery completed Irene Rosales [facility] 07/29/2023 16:29:55 Imaging Results None recorded. Procedure Notes None recorded. Medical Equipment None Reported. Allergies Allergen ID Allergen Name Allergen Category Reaction Reaction Severity Criticality Documentation Date Start Date Code Code System Note Provider Name and Address Organization Details Recorded Time 18681 morphine medicatio n Not available Not available Not available 07/29/2023 7052 RxNorm [facility] 16:29:11 28021 rituximab medicatio n Not available Not available Not available 07/29/2023 28864 1 RxNorm Irene Rosales kimberly [facility] 16:29:11 Medications Name Sig Start Date Stop Date Status Note LastModified by Organization Details LastModified Time levothyroxi ne 175 mcg tablet TAKE 1 TABLET BY MOUTH EVERY DAY active Not Available Not Available No t Available doxycycline hyclate 100 mg capsule TAKE 1 CAPSULE BY MOUTH TWICE A DAY FOR 10 DAYS 07/28 completed Not Available Not Available Not Available azithromyci n 250 mg tablet TAKE 1 TABLET BY MOUTH EVERY DAY 03/09 completed Not Available Not Available Not Available fluconazole 150 mg tablet TAKE ONE TABLET BY MOUTH EVERY 3 DAYS 05/17 completed Not Available Not Available Not Available benzonatate 200 mg capsule TAKE 1 CAPSULE BY MOUTH TWICE A DAY NEEDED FOR COUGH 07/28 completed Not Available Not Available Not Available valacyclovi r 1 gram tablet TAKE ONE TABLET BY MOUTH THREE TIMES A DAY FOR 7 DAYS active Not Available Not Available No t Available sertraline 100 mg tablet TAKE 1 & 1/2 TABLETS BY MOUTH EVERY DAY active Not Available Not Available No t Available bisoprolol 5 mg-hydrochl orothiazide 6.25 mg tablet 11/16 completed Not Available Not Available Not Available nifedipine ER 30 mg tablet,exte nded release TAKE ONE TABLET BY MOUTH DAILY 05/17 completed Not Available Not Available Not Available amlodipine 5 mg tablet TAKE 1 TABLET BY MOUTH EVERY DAY active Not Available Not Available No t Available bisoprolol fumarate 5 mg tablet TAKE 1 TABLET BY MOUTH EVERY DAY FOR HYPERTENS ION active Not Available Not Available No t Available amoxicillin 875 mg tablet TAKE 1 TABLET BY MOUTH TWICE A DAY FOR 10 DAYS 07/28 completed Not Available Not Available Not Available amitriptyli ne 10 mg tablet TAKE 1 TABLET ORALLY THREE TIMES A DAY NEEDED FOR NERVE PAIN active Not Available Not Available No t Available ferrous sulfate 325 mg (65 mg iron) tablet TAKE ONE TABLET BY MOUTH DAILY FOR SUPPLEMEN T FOR 90 DAYS active Not Available Not Available No t Available omeprazole 20 mg capsule,del ayed release active Not Available Not Available Not Available prednisone 5 mg tablets in a dose pack TAKE 6 TABLETS ON DAY 1 DIRECTED ON PACKAGE AND DECREASE BY 1 TAB EACH DAY FOR A TOTAL OF 6 DAYS 07/28 completed Not Available Not Available Not Available albuterol sulfate HFA 90 mcg/actuati on aerosol inhaler INHALE 2 PUFFS EVERY 4 HOURS NEEDED FOR SHORTNESS OF BREATH OR WHEEZING active Not Available Not Available No t Available ferrous sulfate 325 mg (65 mg iron) tablet,gretchen yed release TAKE 1 TABLET BY MOUTH EVERY DAY active Not Available Not Available No t Available Nifedipine CR Osmotic 30 mg tablet,exte nded release 07/28 completed Not Available Not Available Not Available ketoconazol e 2 % topical cream APPLY TO EFFECTED AREA DAILY FOR 2 WEEKS active Not Available Not Available No t Available ondansetron 4 mg disintegrat ing tablet 03/09 completed Not Available Not Available Not Available metformin ER 500 mg tablet,exte nded release 24 hr TAKE 2 TABLETS BY MOUTH 2 TIMES A DAY WITH MEALS. DO NOT CRUSH, CHEW, OR SPLIT. active Not Available Not Available No t Available buspirone 15 mg tablet TAKE 1 TABLET BY MOUTH TWICE A DAY active Not Available Not Available No t Available hydroxyzine pamoate 25 mg capsule TAKE 1 CAPSULE BY MOUTH TWICE A DAY NEEDED FOR ANXIETY active Not Available Not Available No t Available enoxaparin 40 mg/0.4 mL subcutaneou s syringe 03/09 completed Not Available Not Available Not Available insulin lispro protamine-l ispro 100 unit/mL (75-25) subcutaneou s pen INJECT 30U TWICE A DAY AND ADJUST DIRECTED TITRATE DIRECTED (MAX DAILY DOSE 100U) 11/16 completed Not Available Not Available Not Available azithromyci n 500 mg tablet TAKE 1 TABLET BY MOUTH EVERY DAY 03/09 completed Not Available Not Available Not Available aripiprazol e 15 mg tablet TAKE 1 TABLET BY MOUTH EVERYDAY AT BEDTIME active Not Available Not Available No t Available aripiprazol e 20 mg tablet TAKE 1 TABLET BY MOUTH EVERYDAY AT BEDTIME active Not Available Not Available No t Available chlorhexidi ne gluconate 0.12 % mouthwash RINSE FOR 30 SECONDS AND THE SPIT OUT IN THE MORNING AND EVENING AFTER BRUSHING TEETH active Not Available Not Available No t Available sertraline 07/28 completed Not Available Not Available Not Available levothyroxi ne 07/28 completed Not Available Not Available Not Available insulin lispro 07/28 completed Not Available Not Available Not Available ferrous sulfate 07/28 completed Not Available Not Available Not Available buspirone 07/28 completed Not Available Not Available Not Available Abilify 07/28 completed Not Available Not Available Not Available cholecalcif john (vitamin D3) 1,250 mcg (50,000 unit) capsule TAKE 1 CAPSULE BY MOUTH WEEKLY active Not Available Not Available No t Available Lantus Solostar U-100 Insulin 100 unit/mL (3 mL) subcutaneou s pen INJECT 40 UNITS NIGHTLY AND ADJUST DIRECTED. MAX 60 UNITS PER DAY 05/17 completed Not Available Not Available Not Available OneTouch Verio test strips USE INSTRUCTE D 2 TIMES A DAY active Not Available Not Available No t Available BD Ultra-Fine Micro Pen Needle 32 gauge x 1/4 USE EVERY DAY 03/09 completed Not Available Not Available Not Available BD Veo Insulin Syringe Ultra-Fine 1 mL 31 gauge x 15/64 03/09 completed Not Available Not Available Not Available Ozempic 1 mg/dose (4 mg/3 mL) subcutaneou s pen injector INJECT 1 MG (0.75 ML) SUBCUTANE OUSLY WEEKLY 07/28 completed Not Available Not Available Not Available FreeStyle Mariam 3 Sensor device CHANGE SENSOR EVERY 14 DAYS active Not Available Not Available No t Available Ozempic 0.25 mg or 0.5 mg (2 mg/3 mL) subcutaneou s pen injector INJECT 0.25 MG SUBCUTANE OUSLY WEEKLY 07/28 completed Not Available Not Available Not Available Vitals Date Recorded Body weight Body mass index (BMI) Body height Provider Name and Address Organization Details Last Updated DateTime 09/25/2024 723668.38 g 48.4 kg/m2 165.1 cm KURTIS JEROME MD [address], [place], [address], [facility] 09/25/2024 11:05:49 Social History Question Answer Notes LastModified by Organizat ion Details LastModified Time Tobacco Smoking Status Never Smoker Irene Bobbycaroline harris, [facility] 07/29/2023 16:29:49 Is Blood Transfusion Acceptable In An Emergency? Yes Information not available 07/29/2023 How Many Children Do You Have? 0 Information not available 07/29/2023 What Is Your Relationship Status? Information not available 07/29/2023 Sex: Unknown Functional Status Question Answer Note LastModified by Organizat ion Details LastModified Time What is your level of alcohol consumption? Occasional Information not available 07/29/2023 Are you currently employed? No Information not available 07/29/2023 Are you able to care for yourself? Yes Information not available 07/29/2023 Do you or have you ever used e-cigarettes or vape? Never used electronic cigarettes Information not available 07/29/2023 Mental Status None recorded. Family History Relationship Description Onset Age of this Age Resolved Age Notes LastModified by Organization Details LastModified Time Father Heart disease ajanda Not available 2023 16:29:19 Father Diabetes mellitus ajanda Not available 2023 16:29:19 Mother Arthritis ajanda Not available 07/29/2023 16:29:19 Mother Diabetes mellitus ajanda Not available 2023 16:29:19 Maternal Aunt Diabetes mellitus ajanda Not available 2023 16:29:19 Maternal Grandmother Arthritis ajanda Not available 07/17 16:29:19 Maternal Grandmother Heart disease ajanda Not available 2023 16:29:19 Maternal Grandmother Diabetes mellitus ajanda Not available 2023 16:29:19 Maternal Grandfather Heart disease ajanda Not available 2023 16:29:19 Paternal Grandfather Alzheimer's disease ajanda Not available 2023 16:29:19 Medical History Condition Response Diabetes Y Anxiety Disorder Y Thyroid Disease Y Bleeding Disorders Y Depression Y Morbid Obesity Y Anemia Y Sleep Apnea Y Hypertension Y Gynecological HistoryNo gynecological history recorded. Obstetrics History GPAL:G 0 P 0 0 0 0 Past Encounters Encounter ID Performer Location Encounter Start Date Encounter Closed Date Diagnosis/Indication Diagnosis SNOMED-CT Code Diagnosis ICD10 Code Diagnosis Note [id number] KURTIS JEROME MD [facility] [address] [facility] [address] [place] [address] 09/25/2024 10:56:24 09/25/2024 16:54:07 Morbid obesity 934624308 E66.01 current weight 291 lbs (down 64 lbs) // BMI 48.4pre op weight 362 lbs (BMI 60.2)last A1C measured was 7.1 and she has not been on any insulin, she is still taking metformin (states she is bad about taking it but takes it sometimes. protein intake: she is doing at least 1 shake per day at breakfast (30gram protein shake)Exer cise: 3 days per week, 20-25 minutes.no longer having abdominal pain after eatingVita mins: barimelts calcium vitamin D gummie and multivitam in with iron. Health Concerns Section Related Observation LastModified by Organization Detai ls LastModified Time None Recorded Concern Status LastModified by Organization Details LastModified Time None Recorded Payers Encounter Date Sequence Insurance Name Policy Number Policy Brunner Covered Member ID Brunner Member ID Guarantor Name 09/25/2024 1 [id number] [id number] Melanie Michael [id number] Miracle Michael Notes Date Note Type Note Provider Name and Address Organization Details Recorded Time 09/25/2024 text/html Ms. Michael is a 29 yo F sp OAGB on 01/23/24 with Fr. Lutficurrent weight 291 lbs (down 64 lbs) // BMI 48.4pre op weight 362 lbs (BMI 60.2)last A1C measured was 7.1 and she has not been on any insulin, she is still taking metformin (states she is bad about taking it but takes it sometimes.protein intake: she is doing at least 1 shake per day at breakfast (30gram protein shake)Exercise: 3 days per week, 20-25 minutes.no longer having abdominal pain after eatingVitamins: barimelts calcium vitamin D gummie and multivitamin with iron. KURTIS JEROME MD [address] [facility], [place], [address], [facility] 09/25/2024 12:18:12 OBGyn Episode No OBEpisode recorded.
--- OUTSIDE RECORDS SUMMARY | 2024-10-07 11:14 | XMS_ITS | Referral Summary ---
Author Organization [employer] Address [address] [place] [address] Care Team Providers Care Barge Engineer Name Role Phone Eric Freire MD Primary Care Provider [phone] Allergies Active Allergy Reactions Criticality Noted Date [...] tablet (5 mg total) by mouth daily. 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 Not on file Not [...] Description 11/16/2024 8:15 AM EDT Office Visit [facility] [address] [place] [address] Aime Walker MD [address] [place] [address] Procedures Procedure Name Priority Date/Time Associated Diagnosis Comments HEMOGLOBIN A1C Routine 11/17/2023 12:50 PM EDT 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 Less than 7% demonstrates glycemic control in diabetic patients. Hemoglobin AlC % Suggested Diagnosis > or = 6.5 Diabetic 5.7 - 6.4 Prediabetic <5.7 Non-diabetic eAVG Glucose 271.87 mg/dL 11/17/2023 1:28 PM EDT [facility] Blood Venipuncture / Unknown 11/17/2023 12:50 PM EDT 11/17/2023 12:57 PM EDT us Libby Valderrama DISPATCHER REFINERY LAB BLOOD ORDERABLES F inal Result [facility] [address] [place] [address], [facility] [phone] from Last 3 Months or Most Recently Relevant to Health Maintenance Insurance BLUE CROSS/BLUE SHIELD Care Teams Barge Engineer Relationship Specialty Start Date End Date Eric Freire MD [address] [place] [id number] PCP - General Family Medicine 06/08/23
--- OUTSIDE RECORDS SUMMARY | 2024-10-07 11:14 | XMS_ITS | Clinical Summary ---
Author Organization [facility] Address [address] [place] [address] Care Team Providers Care [employer] Consultant Name Role Phone Eric Freire MD Primary Care Provider Cornelia vailable Allergies Active Allergy Reactions Criticality Noted Date Comments Morphine Hives,Unknown - [place] ent states they do not know rxn details High 08/31/2015 Pt states hives Rituximab Anaphylaxis High 01/12/2021 Pt states my throat closes, I get a fever. Pt states my throat closes, I get a fever. Allergic reaction Medications ARIPiprazole (Abilify) 20 MG tablet Take 0.5 tablets (10 mg) by mouth. 3 Active bisoprolol (Zebeta) 5 MG tablet Take 1 tablet (5 mg) by mouth 1 (one) time each day. 3 Active Blood Glucose Monitoring Suppl (Paprika LabTouch Verio Flex System) w/Device kit USE DIRECTED FOR DIABETES 3 Active busPIRone (Buspar) 15 MG tablet Take 1 tablet (15 mg) by mouth. 3 Active ferrous sulfate 325 (65 Fe) MG EC tablet Take 1 tablet (325 mg) by mouth 1 (one) time each day. 3 Active Lancets (OneTouch Delica Plus [id number]) misc USE DIRECTED FOR DIABETES 3 Active levothyroxine (Synthroid, Levoxyl) 175 MCG tablet Take 1 tablet (175 mcg) by mouth 1 (one) time each day. 9 Active NIFEdipine CC (Adalat CC) 30 MG 24 hr tablet Take 1 tablet (30 mg) by mouth 1 (one) time each day. 3 Active sertraline (Zoloft) 100 MG tablet Take 1.5 tablets (150 mg) by mouth 1 (one) time each day. 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 1 each 4 Active Additional Information Patient not taking.Reported on 07/03/2024 chlorhexidine (Peridex) 0.12 % solution RINSE FOR 30 SECONDS AND THE SPIT OUT IN THE MORNING AND EVENING AFTER BRUSHING TEETH 4 Active hydrOXYzine pamoate (Vistaril) 25 MG capsule Take 1 capsule (25 mg) by mouth 2 (two) times a day if needed for anxiety. 4 Active metFORMIN XR (Glucophage-XR) 500 MG 24 hr tabletIndication s:Type 2 diabetes mellitus with other specified complication, unspecified whether alf insulin use (CMS/HCC) Take 2 tablets (1,000 mg) by mouth 2 (two) times a day. Do not crush, chew, or split. 360 tablet 3 4 01/10/20 25 Active Additional Information Patient not taking.Reported on 07/03/2024 amLODIPine (Norvasc) 5 MG tablet 4 Active omeprazole (PriLOSEC) [address] capsule Take 1 capsule (20 mg) by mouth 1 (one) time each day. 4 Active Insulin Syringe-Needle U-100 (BD Veo Insulin Syringe U/F) 31G X 15/64 1 ML misc Use to inject insulin twice daily 200 each 1 4 Active insulin NPH-insulin regular (Novolin 70-30,Humulin 70-30) (70-30) 100 UNIT/ML injection vialIndications: Type 2 diabetes mellitus with other specified complication, unspecified whether alf insulin use ([facility]) Instructed to inject 10 units before breakfast and dinner. 10 mL 3 4 Active glucagon 1 MG injection Use in the event of unconscious hypoglycemia. Inject in thigh or buttocks muscle, then call 911. 1 kit 3 4 Active glucose (Trueplus Glucose) 4 g chewable tablet Chew 4 tablets (16 g) if needed for low blood sugar. 50 tablet 12 4 Active OneTouch Verio test strip Use as instructed 2 times per/day 100 each 11 5 Active Active Problems Problem Noted Date Diagnosed Date Recurrent candidiasis of vagina 05/19/2023 Class III obesity with body mass index (BMI) of 40.0 or higher 01/27/2023 Sleep apnea with use of cont inuous positive airway pressure (CPAP) 01/27/2023 01/27/2023 Type 2 diabetes mellitus with other specified co mplication 01/27/2023 Hypothyroidism 01/27/2023 Morbid obesity 01/27/2023 Iron deficiency anemia, unspecified 03/26/2022 01/27/2023 Hypertension 07/02/2020 01/27/2023 PCOS (polycystic ovarian syndrome) 07/02/2020 01/27/2023 Overview (01/27/2023): Diagnosed with oligomenorrhea, and elevated testosterone. Treated with progestin only pills Hypothyroidism (acquired) 09/13/20182022 Immunizations Immunization Administration Dates Next Due Tdap 08/31/2015 Family History Medical History Relation Name Comments Cardiac disorder Father Jone Brown Diabetes Father Jone Brown Hypertension Father Jone Brown Obesity Father Jone Brown Diabetes Mother Olesya Brown Diabetes type II Mother Olesya Brown Hypertension Mother Olesya Brown Obesity Mother Olesya Brown Cardiac disorder Other 1 Obesity Other 2 Relation Name Status Comments Father Jone Brown Mother Olesya Brown Other 1 Other 2 Social History Tobacco Use Types Packs/Day Years Used Date Smoking Tobacco: Never Smokeless Tobacco: Never Tobacco Cessation:Counseling Given: Not Answered Alcohol Use Standard Drinks/Week Comments Not Currently 0 (1 standard drink = 0.6 oz pur e alcohol) ocassionally PHQ-2 Answer Date Recorded Patient Health Questionnaire-2 Score 0 01/27/2023 PHQ-2A Answer Date Recorded Patient Health Questionnaire-2 Score 0 01/27/2023 Comments No Sex and Gender Information Value Date Recorded Sex Assigned at Not on file Legal Sex Female 8:51 PM EDT Gender Identity Not on file Sexual Orientation Not on file Last Filed Vital Signs Vital Sign Reading Time Taken Comments Blood Pressure 152/98 07/03/2024 4:02 PM EDT Pulse 86 07/03/2024 4:02 PM EDT Temperature 36.6 C (97.8 F) 07/03/2024 4:02 PM EDT Respiratory Rate - - Oxygen Saturation 98% 07/03/2024 4:02 PM EDT Inhaled Oxygen Concentration - - Weight 140 kg (308 lb) 07/03/2024 4:02 PM EDT Height 165.1 cm (5' 5 ) 07/03/2024 4:02 PM EDT Body Mass Index 51.25 07/03/2024 4:02 PM EDT Plan of Treatment Health Maintenance Due Date Last Done Comments [facility]-HIV Screening 1993 [facility]-Hepatitis C Screening 1993 [facility]-/Child/Adol SDOH Screenings 1993 [facility]-IPV Vaccines (2 of 3 - 4-dose series) 07/25/1998 06/27/1998 Diabetes: Dental Exam 2003 [facility]-Varicella Vaccines (1 of 2 - 13+ 2-dose series) 2006 HPV Vaccines (1 - 3-dose series) 2008 [facility]- SDOH Screenings 2011 [facility]-Adult SDOH Screenings 2011 [facility]-Hepatitis B Vaccines (1 of 3 - 19+ 3-dose series) 2012 [facility]-Pneumococcal Vaccine: Pediatrics (0 to 5 Years) and At-Risk Patients (6 to 49 Years) (1 of 2 - PCV) 2012 [facility]-Pap Smear 2014 [id number] Vaccine (3 - Pfizer risk series) 08/06/2020 07/09/2020, 06/11/2020 [facility]-Cervical Cancer Screening 2023 [facility]-HPV/Cotest 2023 [facility]-Depression Screening 01/28/2024 01/27/2023 [facility]-Diabetes: Hemoglobin A1C 10/02/2024 07/03/2024, 03/20/2024, 01/10/2024, Additional history exists [facility]-Influenza Vaccine (Season Ended) 2024 01/13/2023, 01/22/2021, 01/16/2019 [facility]-DTaP,Tdap,and Td Vaccines (3 - Td or Tdap) 08/30/2025 08/31/2015, 06/27/1998 [facility]-Zoster Vaccines (1 of 2) 2043 [facility]-Hepatitis A Vaccines Aged Out 12/20/2019 No longer eligible based on patient's age to complete this topic [facility]-Obesity Intervention Completed 025, 03/20/2024, 01/10/2024, Additional history exists [facility]-HIB Vaccines Aged Out No longer e ligible based on patient's age to complete this topic [facility]-Rotavirus Vaccines Aged Out No lo nger eligible based on patient's age to complete this topic Procedures Procedure Name Priority Date/Time Associated Diagnosis Comments POCT GLYCOSYLATED HEMOGLOBIN (HGB A1C) Routine 07/03/2024 4:21 PM EDT Type 2 diabetes mellitus with other specified complication, 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 whether 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 ([facility]) from Last 3 Months or Most Recently Relevant to Health Maintenance Results * POCT glycosylated hemoglobin (Hb A1C) (07/03/2024 4:21 PM EDT) POCT Hemoglobin A1C 7.9 <5.7% Non-Diabe tic % [facility] Kit Lot Number [id number] [facility] Kit Expiration Date 02/15/2026 [facility] Blood Venous blood specimen / Unknown 07/03/2024 4:21 PM EDT Rose Kraus RELOCATION SERVICES SPECIALIST POINT OF CARE TEST ENTER/JEFFREY T ORDERABLES Final Result [facility] [address] [place] [id number] from Last 3 Months or Most Recently Relevant to Health Maintenance Insurance [facility] [place] [id number] ANTHEM Care Teams [employer] Consultant Relationship Specialty Start Date End Date Eric Freire MD PCP - General Family Medicine 01/27/23
--- OUTSIDE RECORDS SUMMARY | 2024-10-07 11:14 | XMS_ITS | Data Portability ---
Author Organization [facility], autoContract Address [address] [place] [address] Care Team Providers Care Personal Protection Specialist Name Role Phone TAHIR CABALLERO Primary Care Provider [phone] MADHURI COATS Community Facilitator Assessment Encounter Date Assessment Date Assessment LastModified by Organization Details LastModified Time 03/09/2024 03/09/2024 Complete recovery. Patient cleared to take pills without crushing. Emphasized importance of creating steady exercise routine in achieving health goals. All questions answered and patient verbalized understanding. Next visit is in 8 weeks for the 4 months f/u. carol Not available 03/09/2024 15:20:16 05/17/2024 05/17/2024 Patient has good progress. All questions answered and patient verbalized understanding and is excited to continue working hard on achieving weight loss/health goals. Next visit is in 1 month to follow up on postprandial abdominal discomfort. Current dietary habits: Patient currently eats 3 meals a day. Typical Diet Breakfast: scrambled eggs + turkey sausage Lunch: lean cuisine (baked ziti) Dinner: grilled chicken + steamer sides Snacks: tries to limit snacks: pretzels or veggie straws Encouraged increased dietary consumption of protein, aiming for 20g with each meal and 10g with each snack. beverages: Pt is consuming minimal water, states it hurts her stomach. States she tolerates green tea, coffee, and protein shakes without issue- informed pt these do not count towards water goal of 64 oz daily. Exercise: Walking 10-15 minutes daily x 3x weekly. Encouraged 150 minutes of moderate intensity physical activity weekly and provided examples. vitamins: Patient is taking bariatric MVI + calcium with vitamin D + vit D 10k IU daily. [facility] Not available 05/17/2024 14:39:58 06/18/2024 06/18/2024 Ms. Michael is a 29 yo F sp OAGB on 01/23/[address] Faust (now 4 months post op) [facility] Not available 06/18/2024 11:53:37 09/25/2024 09/25/2024 Ms. Michael is a 29 yo F sp OAGB on 01/23/24 with [facility] Not available 09/25/2024 12:17:52 Plan of Treatment [...] instructions recorded. Reason for Referral None Reported. Results Created Date Observation Date Name Description Value Unit Range Abnormal Flag Note LastModifiedBy Organization Detail LastModifiedTime 01/20/20 24 01/20/2024 elect rocar diogr am No observ ation record ed. [facility] [place] [address], [place], [address], 01/30/2024 09:33:47 01/20/20 24 08/30/2023 trans -thor acic echoc ardio gram (TTE) (PROC ) No observ ation record ed. [facility] (Med Record) [address], [place], [address], 01/31/2024 14:52:55 Result Notes None recorded. Problems Name Problem SNOMED Code Status Onset Date Resolution Date Notes Provider Name and Address Organization Details Recorded Time Primary ITP (immune thrombocytopen ia) 646267516 Active 2023 Irene harris [facility] 16:35:27 Morbid obesity 913560965 Active 2023 Irene harris [facility] 4 17:16:15 Type 2 diabetes mellitus 44519490 Active 2023 Irene harris, [facility] 4 17:18:17 Essential hypertension 58207227 Active 2023 Irene harris, [facility] 4 17:18:28 Hypothyroidism 20765864 Active 2023 Irene harris, [facility] 4 17:25:14 Sleep apnea 28274815 Active 2023 Irene harris, [facility] 4 17:25:31 Abdominal pain 29292563 Active 2024 KURTIS JEROME MD [address], [place], [address], [facility] 5 11:50:27 Problem Notes None recorded. Procedures Surgical History Date Name Laterality Status Provider Name and Address Organization Details Recorded Time 5 Telehealth completed KURTIS JEROME MD [address], [place], [address], [facility] 09/25/2024 11:09:21 5 Telehealth completed KURTIS JEROME MD [address], [place], [address], [facility] 06/18/2024 11:41:07 4 Telehealth completed Angela [address], [place], [address], [facility] 02/10/2024 11:37:12 4 Telehealth completed KURTIS JEROME MD [address], [place], [address], [facility] 01/12/2024 21:10:13 4 Telehealth completed Angela [address], [place], [address], [facility] 11/17/2023 17:17:48 4 Telehealth completed Angela [address], [place], [address], [facility] 08/22/2023 11:08:39 6 Other completed Angela [address], [place], [address], [facility] 11/17/2023 17:25:08 8 Back Surgery completed Irene Floresda [facility] 07/29/2023 16:29:55 Imaging Results None recorded. Procedure Notes None recorded. Medical Equipment None Reported. Allergies Allergen ID Allergen Name Allergen Category Reaction Reaction Severity Criticality Documentation Date Start Date Code Code System Note Provider Name and Address Organization Details Recorded Time 22064 morphine medicatio n Not available Not available Not available 07/29/2023 7052 [facility] 16:29:11 91320 rituximab medicatio n Not available Not available Not available 07/29/2023 79729 1 [facility] 16:29:11 Medications Name Sig Start Date Stop [...] Available Not Available Vitals Date Recorded Body height Body mass index (BMI) Body weight Provider Name and Address Organization Details Last Updated DateTime 05/17/2024 165.1 cm 50.4 kg/m2 042184.49 g Irene Kohler [facility] 05/17/2024 12:19:51 Date Recorded Body weight Body mass index (BMI) Body height Provider Name and Address Organization Details Last Updated DateTime 06/18/2024 167305.12 g 49.8 kg/m2 165.1 cm KURTIS JEROME MD [address], [place], [address] 06/18/2024 11:34:25 Date Recorded Body weight Body mass index (BMI) Body height Provider Name and Address Organization Details Last Updated DateTime 09/25/2024 711514.38 g 48.4 kg/m2 165.1 cm KURTIS JEROME MD [address], [place], [address] 09/25/2024 11:05:49 Date Recorded Body height Body mass index (BMI) Body weight Provider Name and Address Organization Details Last Updated DateTime 02/10/2024 165.1 cm 55.7 kg/m2 342279.44 g Angela [address], [place], [address] 02/10/2024 11:41:06 Date Recorded Body height Body mass index (BMI) Body weight Provider Name and Address Organization Details Last Updated DateTime 03/09/2024 165.1 cm 54.6 kg/m2 025838.3 g Irene Kohler [facility] 03/09/2024 12:06:03 Social History Question Answer Notes LastModified by Organizat ion Details LastModified Time Tobacco Smoking Status Never Smoker Irene Rosales [facility] 07/29/2023 16:29:49 Is Blood Transfusion Acceptable [...] Y Anxiety Disorder Y Thyroid Disease Y Anemia Y Sleep Apnea Y Bleeding Disorders Y Hypertension Y Depression Y Morbid Obesity Y Gynecological HistoryNo gynecological history recorded. Obstetrics History GPAL:G 0 P 0 0 0 0 Past Encounters Encounter ID Performer Location Encounter Start Date Encounter Closed Date Diagnosis/Indication Diagnosis SNOMED-CT Code Diagnosis ICD10 Code Diagnosis Note [id number] Jeanna Faust MD [facility] [address] [place] [address] 07/29/2023 16:28:37 08/04/2023 19:37:25 Morbid obesity 132470878 E66.01 BMI 52.4. Patient interested in bariatric surgery for treatment of class 3 obesity. Type 2 den betes mellitus 71505623 Z79.4 Diagnosed 1.5 years ago. Most recent A1c 14% per patient. On basal + bolus insulin and metformin. Followed by endocrine. Essential hypertension 55068936 I10 On bisoprolol -HCTZ and nifedipine Hypothyroidism 28494752 E03.9 On levothyrox ine Sleep apnea 56462963 G47 .30 Diagnosed a year ago. Not adherent with CPAP. Primary IT P (immune thrombocytopenia) 469924295 D69.59 Diagnosed in 2020 during which she received IV steroids. Followed by hematology . Most recent platelet count 250k per patient. [id number] Jeanna Faust MD [facility] [address] [place] [address] 08/22/2023 09:58:12 09/14/2023 22:52:26 Morbid obesity 816267191 E66.01 The pt is interested in surgery to help with obtaining a healthier weight in order to improve their high blood pressure and prevent the developmen t of other obesity related comorbidit ies. Type 2 den betes mellitus 72403905 Z79.4 14% 05/2023. Will re-do prior to surgery. Looking for downward trend. Pt is understand ing of this. [id number] [facility] [address] [place] [phone] 11/17/2023 17:13:31 11/18/2023 13:46:28 Morbid obesity 315197540 E66.01 I had a long discussion with the patient about the gastric sleeve. I discussed also 1 anastomosi s gastric bypass which may has an advantage for her diabetes. Having the thrombocyt openia does complicate the manner but I believe 1 anastomosi s gastric bypass may be a good option for her short of having the full Susan-en-Y gastric bypass with jejunojeju nostomy.Fo r now despite the decline of her hemoglobin A1c, it is still above 10 and I do not believe she is optimized for surgery.I told her that as she was obviously disappoint ed but understood . I told her also there weight gain that she had recently with also affect her recovery and ultimate results. Despite the stress she is under, I encouraged her to do 150 minutes exercise per week to help change in the path of her weight and make surgery technicall y easier as well. This also should help burning her calories and improve her hemoglobin and will see which I gave her 8 weeks to do at the end of December. I will see her at that time. Type 2 den scout mellitus 58659240 Z79.4 She is on oral metformin and insulin and her hemoglobin A1c has increased from 14-11 but still unacceptab ly high for surgery. I told her about exercise as a described above and asked her to remeasure in 8 weeks Primary IT P (immune thrombocytopenia) 852257077 D69.59 Patient is not on any treatment currently. Her platelet count is 170 today. This affects her with petechia In her lower legs and generalize d fatigue [id number] KURTIS JEROME MD [facility] [address] [place] [address] 01/12/2024 11:05:27 01/13/2024 13:53:48 Morbid obesity 763239044 E66.01 Ms. Michael is a 28 yo F planned surgery on 01/23/[address] Faust for pre op evaluation .pt was deciding between sleeve, vs RNYGB vs OAGB. Given hx of ITP, despite no issues for 5 years, if she were to have another episode of ITP after surgery and required steroids an OAGB or sleeve would be preferred as RNYGB requires healing two new anastomosi s (or joining of the bowel) and OAGB has a better chance of resolving her DM than the LSG.Brenda moreira had the pre-op testing, labs, EKG and medical clearance completed. Patient does not have any further concerns about the procedure and wants to go forward with OAGB Patient is looking forward for surgery. I reviewed all history obtained previously with any change in medication or morbiditie s and also reviewed all the testing patient had (endoscopy , dietary assessment and psych evaluation ). We went over the medical clearance process. Based on my review, I discussed the options again and a decision was made with the patient to proceed with laparoscop ic sleeve gastrectom y. Patient still has appropriat e understand ing of this procedure, what it entails, how it works, the recovery process, the results, the possible inferior or lack or positive results if behavioral changes and dietary changes were not followed. 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 Starts liquid diet 01/15; emphasized importance of adequate hydration before and after surgery. Reminded having all medication s in crushable form for 6 weeks after surgery. Reviewed pre-op instructio ns and answered questions. Post-op f/u scheduled 01/25. Primary IT P (immune thrombocytopenia) 198820586 D69.59 stable for 5 years, not required any treatments with steroids.. [id number] Jeanna Faust MD [facility] [address] [place] [address] 01/26/2024 10:16:28 01/26/2024 10:49:22 Postoperative visit 033941739 Z48.89 [id number] CHUN OWUSU MD [facility] [address] [place] [address] 02/10/2024 11:36:28 03/09/2024 03:48:44 [id number] Jeanna Faust MD [facility] [address] [place] [address] 03/09/2024 11:59:54 03/12/2024 15:17:11 Postoperative visit 158629326 Z48.89 s/p OAGB 01/22 [id number] Jeanna Faust MD [facility] [address] [place] [address] 05/17/2024 11:59:49 05/17/2024 16:22:54 Morbid obesity 800355524 E66.01 s/p OAGB Abdominal pain 52510441 R10.9 postprandi al; to start daily pepcid and decrease carbohydra te intake Type 2 den betes mellitus 15100704 Z79.4 Most recent A1c 7.8% and AM BG readings above goal. To resume metformin 500 mg BID. Encouraged follow up with PCP. [id number] KURTIS JEROME MD [facility] [address] [place] [address] 06/18/2024 11:30:15 06/18/2024 15:58:36 Type 2 diabetes mellitus 00556926 Z79.4 improved, no longer using insulin or metformin last a1c was 7.8 , she has fu with her endocrinol ogist in a few weeks Morbid obesity 064343718 E66.01 encouraged pt to use baritastic applicatio n to track her protein intake.enc ouraged patient to increase daily exercise by adding it into her everyday tasks since it has been too cold to walk outside. encouraged taking the stairs when able and parking further from the entrances at work or at stores. Also encouraged her to purchase at home exercise equipment like a walking pad or weights to work out in her home.will fu in 2 months to discuss progress. Abdominal pain 76037822 R10.9 post prandial pain after eating c/f symptomati c gallstones . encouraged patient to fu with her PCP for RUQ u/s and may require cholecyste ctomy. persistent RUQ pain with nausea/vom iting/ and fevers/chi lls recommend pt go to the emergency room d/t risk of acute cholecysti tis. [id number] KURTIS JEROME MD [facility] [address] [place] [address] 09/25/2024 10:56:24 09/25/2024 16:54:07 Morbid obesity 139019459 E66.01 current weight 291 lbs (down 64 [...] by Organization Details LastModified Time None Recorded Advance Directives Directive None Recorded Payers Insurance Date Sequence Insurance Name Policy Number Policy Brunnre Covered Member ID Brunner Member ID Guarantor Name 11/16/2023 SLIDING FEE SCHEDULE - DISCOUNT Miracle Michael 09/19/2023 2 [place] [id number] Melanie Michael [id number] Miracle Michael 05/17/2024 CARRUM Miracle Michael CARRUM CARRUM Miracle Michael 09/22/2024 1 [place] [id number] Melanie Michael [id number] Miracle Michael 10/13/2023 1 [place] [id number] Melanie Michael [id number] Miracle Michael Notes Date Note Type Note Provider Name and Address Organization Details Recorded Time 02/10/2024 text/html The patient completed and consented to the follow-up nutrition evaluation via telehealth due to the COVID-19 pandemic. This is based on guidelines from the CDC and other health organizations. After a brief education of education of the format, the patient consented to the audio telehealth visit Patient is 2 weeks s/p surgery. She was admitted into the ER for pneumonia for 2 nights due to the surgery. She reports due to anesthesia. Now on abx. Continues with PPI (no heartburn) and Lovenox 2x daily.Protein shakes and 30-60 ounces of water.Back to work now.30lbs down in 2 weeks now at 335 lbs. 5 BMI pts down. She has also noticed much improvement in looser clothing. Taking her Zacarias Melts - encouraged 10,000 IU additional because of OAGB.Regular bowel movements. [address], [place], [address], [facility] 02/13/2024 11:48:17 03/09/2024 text/html This visit was conducted via telehealth. After brief education on the format, patient consented to the Telehealth visit and verbalized understanding of the limitation of virtual consultations. Patient connected from home and seemed to be in a quiet environment where they can have full comprehension of our conversation. I was in my office. Patient comes for 6 week s/p OAGB 01/23/24 at [facility].Initial weight 362 lbs, BMI 60.Current weight 328 lbs, BMI 54.6. She's taking bariatric MVI w/ iron + calcium w/ vitamin D. She is tolerating solid foods without issue, and has been emphasizing protein. Denies any food intolerances post-op.Pt denies heartburn, regurgitation, difficulty swallowing, abdominal pain with eating, diarrhea/constipati on. Patient denies any limitations or restrictions since surgery. Informed patient that she is cleared to incorporate strength training and other forms of exercise without limitations. Drinking 50+ oz water daily. Tolerating protein shakes.Had 2 loose stools yesterday, since resolved.Denies heartburn, nausea, or abdominal pain. Not taking insulin, BG has been well controlled. Has follow up with endocrine in 03/20. Off nifedipine, transitioned to amlodipine 5 mg. Has f/u with cardiology in months. Remains on prophylactic PPI. Irene harris, [facility] 03/09/2024 15:20:40 05/17/2024 text/html This visit was conducted via telehealth. After brief education on the format, patient consented to the Telehealth visit and verbalized understanding of the limitation of virtual consultations. Patient connected from home and seemed to be in a quiet environment where they can have full comprehension of our conversation. I was in my office. Miracle presents for 3.5 month follow up s/p OAGB 01/23/24 at [facility].Initial weight 362 lbs, BMI 60.Current weight 303 lbs, BMI 50.4. She reports 2 weeks of postprandial epigastric discomfort occurring 2-3x weekly regardless of what she eats. Associated emesis 1-2x weekly and loose stools 3-4x daily- no hematochezia. Denies abdominal bloating, fever, chills, other sick contacts. Off all DM2 meds; however, AM BG readings remain ~180s. Off nifedipine, transitioned to amlodipine 5 mg. Irene harris [facility] 05/17/2024 14:49:57 06/18/2024 text/html Ms. Michael is a 29 yo F sp OAGB on 01/23/24 with Fr. Lutficurrent weight 299 lbs (down 64 lbs)last A1C measured 2 months postop was 7.8 and she has not been on any insulin or metformin.protein intake: sometimes doing a shake, but thinks she could be doing better with her protein intake.Exercise: nothing really, wants to get a walking pad to start walking everyday.endorses some abdominal pain after eating, has taken ppi but still occasionally has the abdominal pain anywyas. she still has a gallbladder. and recommended she fu with her PCP for abdominal u/s to look for gallstones. educated patient that 04/27 baraitric patients will need their GB removed due to symptomatic gallstones. KURTIS JEROME MD [address], [place], [address], [facility] 06/18/2024 11:54:55 09/25/2024 text/html Ms. Michael is a 29 [...] with iron. KURTIS JEROME MD [address], [place], [address], [facility] 09/25/2024 12:18:12 OBGyn Episode No OBEpisode recorded.
--- OUTSIDE RECORDS SUMMARY | 2024-10-07 11:14 | XMS_ITS | Encounter Summary ---
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) (Primary Dx); Obesity, unspecified classification, unspecified obesity type, unspecified whether serious comorbidity present Social History Tobacco Use Types Packs/Day Years [...] Date Benito rded Speak language other than Cambodian at home Not on file 04/27/2023 Want [...] 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 Not on file Not on file Not on file documented as of this encounter Plan of Treatment Upcoming Encounters Date Type Department Care Team (Late st Contact Info) Description 11/16/2024 8:15 AM EDT Office Visit [facility] [address] [place] [address] Aime Walker MD [address] [place] [address] documented as of this encounter Results * Prothrombin time/INR (11/17/2023 12:50 PM EDT) Protime 10.0 9.0 - 12.0 seconds 11/17/2023 1:18 PM EDT [facility] INR 0.97 0.80 - 1.10 11/17/2023 1:18 PM EDT [facility] Comment: Recommended therapeutic ranges using International Normalized Ratio (INR) are: INR RANGE 2.0 - 3.0 Routine oral anticoagulant therapy 2.5 - 3.5 Oral anticoagulant therapy for patients with thromboembolic events on standard doses of Coumadin and those with mechanical heart valves. Blood Venipuncture / Unknown 11/17/2023 12:50 PM EDT 11/17/2023 12:57 PM EDT Libby Valderrama NUT PICKER LAB BLOOD ORDERABLES F inal Result Performing Organization Address [facility]/ZIP Co de Phone Number [facility] [address] [place] [address] * Hemoglobin A1c (11/17/2023 12:50 PM EDT) Hemoglobin A1C 11.1 % 11/17/2023 1:28 PM EDT [facility] Comment: Hemoglobin A1C levels are related to mean glucose during the preceding 2-3 months. Less than 7% demonstrates glycemic control in diabetic patients. Hemoglobin AlC % Suggested Diagnosis > or = 6.5 Diabetic 5.7 - 6.4 Prediabetic <5.7 Non-diabetic eAVG Glucose 271.87 mg/dL 11/17/2023 1:28 PM EDT [facility] Blood Venipuncture / Unknown 11/17/2023 12:50 PM EDT 11/17/2023 12:57 PM EDT Libby Valderrama NP LAB BLOOD ORDERABLES F inal Result [facility] [address] [place] [address] * TSH (11/17/2023 12:50 PM EDT) TSH 2.148 0.360 - 3.740 uIU/mL 11/17/2023 1:35 PM EDT [facility] Blood Venipuncture / Unknown 11/17/2023 12:50 PM EDT 11/17/2023 12:57 PM EDT Narrative [facility] - 11/17/2023 1:35 PM EDT Biotin supplements can cause clinically significant incorrect lab results. The FDA has seen an increase in the number of reported adverse events related to biotin interference with lab tests. Libby Valderrama NUT PICKER LAB BLOOD ORDERABLES F inal Result [facility] [address] [phone] * (ABNORMAL) CBC with automated diff (11/17/2023 12:50 PM EDT) WBC 10.6 4.8 - 10.8 K/ L 11/17/2023 1:00 PM EDT [facility] RBC 5.55(H) 3.50 - 5.20 M/ L 11/17/2023 1:00 PM EDT [facility] Hemoglobin 13.7 11.7 - 15.8 GM/DL 11/17/2023 1:00 PM EDT [facility] Hematocrit 42.1 35.0 - 47.0 % 11/17/2023 1:00 PM EDT [facility] MCV 76(L) 81 - 101 fL 11/17/2023 1:00 PM EDT [facility] MCH 24.7(L) 27.0 - 34.0 pg 11/17/2023 1:00 PM EDT [facility] MCHC 32.5 32.0 - 36.0 GM/DL 11/17/2023 1:00 PM EDT [facility] RDW 16.0(H) 11.5 - 14.5 % 11/17/2023 1:00 PM EDT [facility] Platelets 178 150 - 400 K/CU MM 11/17/2023 1:00 PM EDT [facility] MPV 9.7 9.4 - 12.4 fL 11/17/2023 1:00 PM EDT [facility] Nucleated Red Blood Cell 0.0 0 - 0.2 % 11/17/2023 1:00 PM EDT [facility] % Neutros 73 37 - 80 % 11/17/2023 1:00 PM EDT [facility] % Lymphs 18 10 - 50 % 11/17/2023 1:00 PM EDT [facility] % Monos 6 5 - 13 % 11/17/2023 1:00 PM EDT [facility] % Eos 1 0 - 7 % 11/17/2023 1:00 PM EDT [facility] % Baso 1 0 - 3 % 11/17/2023 1:00 PM EDT [facility] NRBC Absolute <0.01 0 - 0.012 K/ul 11/17/2023 1:00 PM EDT [facility] # Neutros 7.76(H) 2.00 - 6.90 K/ L 11/17/2023 1:00 PM EDT [facility] # Lymphs 1.96 0.60 - 3.40 K/ L 11/17/2023 1:00 PM EDT [facility] # Monos 0.64 0.00 - 0.90 K/ L 11/17/2023 1:00 PM EDT [facility] # Eos 0.14 0.00 - 0.70 K/ L 11/17/2023 1:00 PM EDT [facility] # Baso 0.06 0.00 - 0.20 K/ L 11/17/2023 1:00 PM EDT [facility] Immature Granulocytes-Re lative 0.80 % 11/17/2023 1:00 PM EDT [facility] # IG 0.08(H) 0.00 - 0.00 K/uL 11/17/2023 1:00 PM EDT [facility] Blood Venipuncture / Unknown 11/17/2023 12:50 PM EDT 11/17/2023 12:57 PM EDT Narrative [facility] - 11/17/2023 1:00 PM EDT When CBC w/ Auto Diff is ordered the lab will add a Manual Differential as a quality check at no additional charge if: Lymphocytes greater than seventy five percent with normal or increased WBC Monocytes greater than Fifteen percent Basophil greater than four percent Bands >10% or several immature myeloids are seen on scan Blast? Flag noted Atypical Lymph flag noted us Libby Valderrama NUT PICKER LAB BLOOD ORDERABLES F inal Result [facility] [address] [place] [address], [facility] [phone] * (ABNORMAL) Comprehensive metabolic panel (11/17/2023 12:50 PM EDT) Sodium 140 136 - 145 meq/L 11/17/2023 1:35 PM EDT [facility] Potassium 3.9 3.5 - 5.1 meq/L 11/17/2023 1:35 PM EDT [facility] Chloride 102 98 - 107 meq/L 11/17/2023 1:35 PM EDT [facility] CO2 30 21 - 32 meq/L 11/17/2023 1:35 PM EDT [facility] Calcium 8.8 8.5 - 10.1 mg/dL 11/17/2023 1:35 PM EDT [facility] Glucose 258(H) 70 - 99 mg/dL 11/17/2023 1:35 PM EDT [facility] BUN 7 7 - 18 mg/dL 11/17/2023 1:35 PM EDT [facility] Creatinine 0.83 0.55 - 1.10 mg/dL 11/17/2023 1:35 PM EDT [facility] BUN/Creatinine 8 11/17/2023 1:35 PM EDT [facility] Albumin 2.9(L) 3.4 - 5.0 g/dL 11/17/2023 1:35 PM EDT [facility] Alkaline Phosphatase 108 46 - 116 U/L 11/17/2023 1:35 PM EDT [facility] ALT 25 12 - 78 U/L 11/17/2023 1:35 PM EDT [facility] AST 12(L) 15 - 37 U/L 11/17/2023 1:35 PM EDT [facility] Total Bilirubin 0.4 0.2 - 1.0 mg/dL 11/17/2023 1:35 PM EDT [facility] Protein, Total 6.3(L) 6.4 - 8.2 gm/dL 11/17/2023 1:35 PM EDT [facility] Anion Gap 12 11 - 22 11/17/2023 1:35 PM EDT [facility] A/G Ratio 0.9 11/17/2023 1:35 PM EDT [facility] Globulin 3.4 g/dL 11/17/2023 1:35 PM EDT [facility] Osmolality Calc 286.2 1:35 PM EDT [facility] eGFR (mL/min/1.73m2) >60 >=60 mL/min/1.7 3m2 11/17/2023 1:35 PM EDT [facility] Comment:ESTIMATED GFR IS NOT ACCURATE CREATININE CLEARANCE IN PREDICTING GLOMERULAR FILTRATION RATE. ESTIMATED GFR IS NOT APPLICABLE FOR DIALYSIS PATIENTS. 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
[2024-10-07] MEDS: LACTATED RINGERS 1000ML 1,000 ML 999 ML IV (11:40)
[2024-10-07] MEDS: PIPERACILLIN/TAZO 4.5 GM in 0.9 % SODIUM CHLORIDE 100 ML IV ×3 (11:40→23:46)
[2024-10-07] MEDS: HYDROMORPHONE 2MG/ML SYRINGE 0.5 MG IV (11:41)
[2024-10-07 11:47] LABS: Basophils % 0.5 % (0.1-2.0); Eosinophils # 0.1 Kmm3 (0.0-0.4); Hematocrit 42.8 % (37.0-47.0); Hemoglobin 13.7 g/dL (12.2-16.2); Immature Granulocytes # 0.04 10^3uL; Immature Granulocytes % 0.5 %; Lymphocytes # 1.4 K/mm3 (0.7-4.5); Lymphocytes % 16.9 % (10-50); Mean Corpuscular Hemoglobin 24.7 pg (27.0-31.2); Mean Corpuscular Volume 77.3 fl (81-99); Mean Platelet Volume 10.6 fl (7.4-10.4); Monocytes # 0.7 K/mm3 (0.1-1.0); Monocytes % 8.3 % (1.7-9.3); Neutrophils # 6.1 K/mm3 (1.8-7.8); Neutrophils % 72.8 % (37.0-80.0); Nucleated Red Blood Cells # 0 10^3/uL; Nucleated Red Blood Cells % 0 %; Platelet Count 169 K/mm3 (142-424); Red Blood Count 5.54 M/mm3 (4.20-5.40); Red Cell Distribution Width 15.1 % (11.5-17.5); Red Cell Distribution Width-SD 41.1 fL; White Blood Count 8.3 K/mm3 (4.8-10.8)
[2024-10-07 12:01] LABS: Chloride 101 mmol/L (98-107); Potassium 4.4 mmoL/L (3.5-5.1); Sodium 138 mmol/L (136-145)
[2024-10-07 12:04] LABS: Alanine Aminotransferase 34 U/L (12-78); Alkaline Phosphatase 91 U/L (38-126); Anion Gap 13.4 mEq/L (5-15); Aspartate Amino Transferase 37 U/L (14-36); Bilirubin,Total 0.5 mg/dl (0.2-1.3); Blood Urea Nitrogen 9 mg/dl (7-17); Calcium 8.9 mg/dl (8.4-10.2); Carbon Dioxide 28 mmol/L (22.0-30.0); Creatinine Clearance Estimated 183 mL/min (50-200); Estimated Glomerular Filt Rate 186 ml/min (>60); GFR (African American) 225 ML/MIN (>60); Glucose 233 mg/dl (74-100); HCG Qualitative, Serum Negative (Negative); Total Protein,Serum 6.8 g/dl (6.3-8.2)
[2024-10-07] MEDS: SODIUM CHLORIDE 0.9% 10ML SYR (RAD ONLY) 10 ML IV (12:18)
[2024-10-07] MEDS: IOPAMIDOL-370 (76%);100ML BOTTLE 75 ML IV (12:18)
[2024-10-07] MEDS: VANCOMYCIN HCL 2,250 MG in 0.9 % SODIUM CHLORIDE 250 ML 125 MG IV (12:27)
[2024-10-07] MEDS: VANCOMYCIN CONSULT REQUEST 1 EACH NOTAPPLIC (12:55)
[2024-10-07 12:59] LABS: Erythrocyte Sedimentation Rate 10 mm/hr (0-20)
[2024-10-07 13:08] LABS: Hemoglobin A1C 8.7 % (4.0-6.0)
[2024-10-07 13:35] LABS: Albumin Level 4.1 g/dl (3.5-5.0); Albumin/Globulin Ratio 1.5 (1.1-1.8); Globulin 2.7 g/dL (1.3-3.2)
--- NOTE | 2024-10-07 14:31 | PC.NURSE ---
call made to house for bed placement
--- NOTE | 2024-10-07 14:31 | PC.NURSE ---
I notified HS of the need for a bed to admit the pt to the hospitalist.
--- NOTE | 2024-10-07 15:00 | PC.NURSE ---
arrived by w/c from ED
--- NOTE | 2024-10-07 15:22 | EXP.HP ---
History of Present Illness *Admission Date: 10/07/24 *Reason for visit:: Right ear swelling *History of present illness: Miracle Michael is a 29-year-old female with a medical history significant for type 2 diabetes, hypertension, anxiety/depression, hypothyroidism who presents with almost a 1 week onset of right ear swelling. Patient states she got her right ear pierced about a week ago which unfortunately started surrounding swelling with tenderness. She had her piercing removed 2 days ago and was prescribed clindamycin which she has taken for 1 day. Unfortunately, swelling, erythema, tenderness have worsened. No drainage, fever/chills. CT scans did not indicate deep tissue infection or abscess. WBC normal. No signs of sepsis. Case discussed with ED provider and decision made to admit patient for otitis externa. [facility] Disclaimer: The information contained in this section may have been updated after the patient was seen, as this information can be updated by other users. Medical History (Updated 10/07/24 @ 18:12 by Chavo Evangelista MD) Need for tuberculosis vaccination Hypothyroidism (07/29/23) Sleep apnea (07/29/23) Type 2 diabetes mellitus (07/29/23) Essential hypertension (07/29/23) Morbid obesity (07/29/23) Acute ITP Diabetes Pre-op testing Abnormal ECG Chest pain Sleep apnea with use of continuous positive airway pressure (CPAP) Chronic ITP (idiopathic thrombocytopenic purpura) Depression with anxiety PCOS (polycystic ovarian syndrome) Prediabetes Hypothyroid Hypertension Hypertensive emergency Neck pain Left shoulder pain Tinea corporis Surgical History History of gastric bypass History of esophagogastroduodenoscopy (EGD) History of surgery on arm Previous back surgery Family History Mother Diabetes Hypertension Father Diabetes Family history of hypertension Social History (Updated 10/07/24 @ 15:10 by Sara Delvalle RN) Smoking Status: Never smoker alcohol intake: never substance use type: denies use 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) Travel in the last 8 weeks?: None household members: spouse housing: house caffeine: No Have you lived/traveled outside US in past 30 days?: No Contact w/someone who lives/traveled outside US past 30 days?: No Exposure to someone with infectious disease in past 14 days?: No Do you have a fever (greater than 100.4 F or 38 C)?: No Have you tested positive for COVID-19?: No Exposed to someone with COVID-19 in past 14 days?: No Do you have a sore throat?: No Do you have a cough?: No Do you have any weakness?: No Do you have any diarrhea?: No Are you experiencing any unusual bleeding?: No Do you have any muscle aches/pain?: No Do you have any abdominal pain?: No Are you experiencing loss of taste or smell?: No Other Medical History Have you received the Flu Vaccine for this season: No Have you received the Pneumonia Vaccine: No Meds Home Medications and Allergies Home Medications ?Medication ?Instructions ?Recorded ?Confirmed ?Type buspirone 15 mg tablet 15 mg PO ONCE 11/16/21 10/07/24 History sertraline 100 mg tablet 150 mg PO DAILY Depression 08/17/22 10/07/24 History ferrous sulfate 325 mg (65 mg 325 mg PO DAILY Supplement 90 days 06/08/23 10/07/24 Rx iron) tablet #90 tabs bisoprolol fumarate 5 mg tablet 5 mg PO DAILY HTN 90 days #90 tabs 12/23/23 10/07/24 Rx levothyroxine 175 mcg tablet 175 mcg PO DAILY 90 days #90 tabs 04/25/24 10/07/24 Rx amlodipine 5 mg tablet 5 mg PO DAILY #90 tabs 08/22/24 10/07/24 Rx cholecalciferol (vitamin D3) 1,250 1,250 mcg PO WEEKLY #5 caps 09/04/24 10/07/24 Rx mcg (50,000 unit) capsule aripiprazole 15 mg tablet (Abilify) 15 mg PO HS 10/07/24 10/07/24 History New Prescriptions to Start Prescriptions: Allergies Allergy/AdvReac Type Severity Reaction Status Date / Time morphine Allergy Intermediate I-HIVES Verified 09/04/24 10:04 rituximab (From Rituxan) Allergy Verified 09/04/24 10:04 Exam Data for Last 24 hours Vital signs and Labs for Last 24 Hours: Temp Pulse Resp BP Pulse Ox O2 Del Method 98 F 75 16 132/90 100 Room Air 10/07/24 14:57 10/07/24 14:57 10/07/24 14:57 10/07/24 14:57 10/07/24 14:00 10/07/24 15:00 Laboratory Results - last 24 hr 10/07/24 11:30: WBC 8.3, RBC 5.54 H, Hgb 13.7, Hct 42.8, MCV 77.3 L, MCH 24.7 L, MCHC 32.0, RDW 15.1, Plt Count 169, MPV 10.6 H, Neut % (Auto) 72.8, Lymph % (Auto) 16.9, Emanuel % (Auto) 8.3, Eos % (Auto) 1.0, Baso % (Auto) 0.5, Neut # (Auto) 6.1, Lymph # (Auto) 1.4, Emanuel # (Auto) 0.7, Eos # (Auto) 0.1, Baso # (Auto) 0.0, ESR 10, Sodium 138, Potassium 4.4, Chloride 101, Carbon Dioxide 28, Anion Gap 13.4, BUN 9, Creatinine 0.40 L, Estimated Creat Clear 183, Estimated GFR 186, Est GFR ( Amer) 225, Glucose 233 H, Hemoglobin A1c 8.7 H, Calcium 8.9, Total Bilirubin 0.5, AST 37 H, ALT 34, Alkaline Phosphatase 91, C-Reactive Protein 41.0 H, Total Protein 6.8, Albumin 4.1, Globulin 2.7, Albumin/Globulin Ratio 1.5, Serum HCG, Qual Negative I & O for Last 24 hours: Intake & Output 10/04/24 10/05/24 10/06/24 10/07/24 23:59 23:59 23:59 23:59 Weight 131.995 kg Constitutional Constitutional: no acute distress *Routine HEENT Exam Head: Present normocephalic Eye: Present EOMI and PERRL ENT: Present mucous membranes moist *Routine Neck Exam Neck: Present supple; Absent lymphadenopathy *Routine Respiratory Exam Respiratory: Present CTA bilaterally *Routine Cardiovascular Exam Cardiovascular: Present RRR *Routine Abdominal Exam Abdominal: Present soft and normoactive bowel sounds; Absent tenderness *Routine Rectal Exam Rectal:: deferred *Routine Genitalia Exam Genitalia:: deferred *Routine Extremities Exam Extremities: Absent cyanosis, clubbing or edema *Routine Skin Exam Skin: Present warm; Absent rash *Routine Neurological Exam Neurological: Present alert and oriented X3 Detailed ENT Exam Ear: Absent TM bulging, TM perforation or TM erythema Comments: Right earlobe swelling with tenderness without drainage. Assessment and Plan *Assessment and plan (1) Hypothyroidism: Status: Acute Category: Medical Code(s): E03.9 - Hypothyroidism, unspecified (2) Type 2 diabetes mellitus: Status: Acute Category: Medical Code(s): E11.9 - Type 2 diabetes mellitus without complications (3) Essential hypertension: Status: Acute Category: Medical Code(s): I10 - Essential (primary) hypertension (4) Morbid obesity: Status: Acute Category: Medical Code(s): E66.01 - Morbid (severe) obesity due to excess calories (5) Otitis externa: Status: Acute Category: Medical Code(s): H60.90 - Unspecified otitis externa, unspecified ear Plan Miracle Michael is a 29-year-old female with a medical history significant for type 2 diabetes, hypertension, anxiety/depression, hypothyroidism who presents with almost a 1 week onset of right ear swelling. Patient states she got her right ear pierced about a week ago which unfortunately started surrounding swelling with tenderness. She had her piercing removed 2 days ago and was prescribed clindamycin which she has taken for 1 day. Unfortunately, swelling, erythema, tenderness have worsened. No drainage, fever/chills. CT scans did not indicate deep tissue infection or abscess. WBC normal. No signs of sepsis. Case discussed with ED provider and decision made to admit patient for otitis externa. #Right otitis externa ? In the setting of recent right ear piercing that has caused progressive swelling, tenderness. Piercing was removed 2 days ago. ? Continue IV Zosyn in the setting of diabetes. WBC normal. No signs of sepsis. ? Middle ear exam normal. CT scans did not indicate deep tissue infection. #Type 2 diabetes ? Hemoglobin A1c is 8.7%. ? LDSSI, ACHS glucose checks. #Anxiety/depression #Mood disorder ? Continue home sertraline, buspirone, aripiprazole. #Hypertension ? Continue home amlodipine 5 mg, bisoprolol 5 mg. #Hypothyroidism ? Continue home levothyroxine 175 mcg. Follow-up TFTs. Full code DVT prophylaxis: Lovenox 40 mg
[2024-10-07 16:41] LABS: POC Glucose,Bedside 100 (70-110)
--- NOTE | 2024-10-07 18:08 | HMH.PHAINT1 ---
Pharmacy Intervention Comments: HOME MEDICATION LIST VERIFIED USING LIST FROM OUTPATIENT PHARMACY AND PT INTERVIEW
[2024-10-07] MEDS: BUSPIRONE HCL 10 MG TABLET 15 MG PO (21:38)
[2024-10-07] MEDS: ARIPiprazole 10MG TABLET 15 MG PO (21:38)
[2024-10-07 21:53] LABS: POC Glucose,Bedside 150 (70-110)
[2024-10-08 04:00] VITALS: BP 119/74; PULSE 72; RESP 14; TEMP 36.4; O2SAT 97; BMI 49.5
[2024-10-08 05:32] LABS: Basophils # 0.1 K/mm3 (0-0.2); Basophils % 0.6 % (0.1-2.0); Eosinophils # 0.1 Kmm3 (0.0-0.4); Eosinophils % 1.3 % (0.1-12.0); Hematocrit 40.3 % (37.0-47.0); Immature Granulocytes # 0.04 10^3uL; Immature Granulocytes % 0.5 %; Lymphocytes # 1.6 K/mm3 (0.7-4.5); Lymphocytes % 18.8 % (10-50); Mean Corpuscular HGB Conc 30.5 g/dL (31.8-35.4); Mean Corpuscular Hemoglobin 23.9 pg (27.0-31.2); Mean Corpuscular Volume 78.3 fl (81-99); Mean Platelet Volume 10.5 fl (7.4-10.4); Monocytes # 0.6 K/mm3 (0.1-1.0); Monocytes % 7.4 % (1.7-9.3); Neutrophils % 71.4 % (37.0-80.0); Nucleated Red Blood Cells # 0 10^3/uL; Nucleated Red Blood Cells % 0 %; Platelet Count 161 K/mm3 (142-424); Red Blood Count 5.15 M/mm3 (4.20-5.40); Red Cell Distribution Width 15.1 % (11.5-17.5); Red Cell Distribution Width-SD 42.1 fL; White Blood Count 8.4 K/mm3 (4.8-10.8)
[2024-10-08 05:33] LABS: Albumin Level 3.6 g/dl (3.5-5.0); Chloride 100 mmol/L (98-107)
[2024-10-08 05:34] LABS: Potassium 4.1 mmoL/L (3.5-5.1); Sodium 138 mmol/L (136-145)
[2024-10-08 05:36] LABS: Alanine Aminotransferase 31 U/L (12-78); Alkaline Phosphatase 97 U/L (38-126); Anion Gap 10.1 mEq/L (5-15); Aspartate Amino Transferase 25 U/L (14-36); Bilirubin,Total 0.3 mg/dl (0.2-1.3); Blood Urea Nitrogen 8 mg/dl (7-17); Carbon Dioxide 32 mmol/L (22.0-30.0); Creatinine Clearance Estimated 141 mL/min (50-200); Estimated Glomerular Filt Rate 144 ml/min (>60); GFR (African American) 174 ML/MIN (>60)
[2024-10-08 05:37] LABS: Albumin/Globulin Ratio 1.5 (1.1-1.8); Globulin 2.4 g/dL (1.3-3.2); Glucose 175 mg/dl (74-100)
[2024-10-08] MEDS: PIPERACILLIN/TAZO 4.5 GM in 0.9 % SODIUM CHLORIDE 100 ML IV ×2 (05:53→11:42)
--- NOTE | 2024-10-08 06:04 | PC.NURSE ---
Pt has been very pleasant during shift. v/s, ox4, RA. Pt denied pain. Blood glucose monitored. No acute events to report. Plan of care ongoing.
[2024-10-08] MEDS: humaLOG 100 UNITS/ML 10ML VIAL (SSI) SUBCUT (06:28)
[2024-10-08 06:53] LABS: Hemoglobin 12.3 g/dL (12.2-16.2)
[2024-10-08 08:00] VITALS: BP 141/87; PULSE 79; RESP 16; TEMP 36.4; O2SAT 95
[2024-10-08] MEDS: AMLODIPINE 5MG TABLET 5 MG PO (08:38)
[2024-10-08] MEDS: BUSPIRONE HCL 10 MG TABLET 15 MG PO (08:38)
[2024-10-08] MEDS: SERTRALINE 100MG TABLET 150 MG PO (08:39)
[2024-10-08] MEDS: LEVOTHYROXINE 175MCG (0.175MG) TAB 175 MCG PO (08:39)
[2024-10-08] MEDS: BISOPROLOL 5MG TABLET 5 MG PO (08:39)
[2024-10-08] MEDS: predniSONE 20MG TAB 20 MG PO (11:43)
[2024-10-08] MEDS: SULFA/TRIMETHOPRIM 1 TABLET 1 EACH PO (11:43)
--- NOTE | 2024-10-08 11:46 | EXP.DC.SUM ---
General Admission date:: 10/07/24 HPI HPI HPI: Miracle Michael is a 29-year-old female with a medical history significant for type 2 diabetes, hypertension, anxiety/depression, hypothyroidism who presents with almost a 1 week onset of right ear swelling. Patient states she got her right ear pierced about a week ago which unfortunately started surrounding swelling with tenderness. She had her piercing removed 2 days ago and was prescribed clindamycin which she has taken for 1 day. Unfortunately, swelling, erythema, tenderness have worsened. No drainage, fever/chills. CT scans did not indicate deep tissue infection or abscess. WBC normal. No signs of sepsis. Case discussed with ED provider and decision made to admit patient for otitis externa. Hospital Course Hospital Course Hospital Course: Miracle Michael is a 29-year-old female with a medical history significant for type 2 diabetes, hypertension, anxiety/depression, hypothyroidism who presents with almost a 1 week onset of right ear swelling. Patient states she got her right ear pierced about a week ago which unfortunately started surrounding swelling with tenderness. She had her piercing removed 2 days ago and was prescribed clindamycin which she has taken for 1 day. Unfortunately, swelling, erythema, tenderness have worsened. No drainage, fever/chills. CT scans did not indicate deep tissue infection or abscess. WBC normal. No signs of sepsis. Case discussed with ED provider and decision made to admit patient for otitis externa. #Right otitis externa ? In the setting of recent right ear piercing that has caused progressive swelling, tenderness, and now drainage on admission. Piercing was removed 2 days prior to admission. ? Tenderness and drainage improved with IV Zosyn, and one-time dose of vancomycin during admission. There is still some swelling, but no signs of malignant otitis externa. ? Middle ear exam normal. CT scans did not indicate deep tissue infection. ? Will transition to Bactrim DS for 10 more days. Advised to follow-up with PCP within 1 week. #Type 2 diabetes ? Hemoglobin A1c is 8.7%. Currently not on diabetic medications. ? Started Jardiance 10 mg. Will follow-up with PCP for further management. #Anxiety/depression #Mood disorder ? Continue home sertraline, buspirone, aripiprazole. #Hypertension ? Continue home amlodipine 5 mg, bisoprolol 5 mg. #Hypothyroidism ? Continue home levothyroxine 175 mcg. TFTs normal last month. Exam Data for Last 24 hours Vital signs and Labs for Last 24 Hours: Temp Pulse Resp BP Pulse Ox O2 Del Method 97.6 F 79 16 141/87 H 95 Room Air 10/08/24 08:00 10/08/24 08:00 10/08/24 08:00 10/08/24 08:00 10/08/24 08:00 10/08/24 09:00 Laboratory Results - last 24 hr 10/07/24 11:30: WBC 8.3, RBC 5.54 H, Hgb 13.7, Hct 42.8, MCV 77.3 L, MCH 24.7 L, MCHC 32.0, RDW 15.1, Plt Count 169, MPV 10.6 H, Neut % (Auto) 72.8, Lymph % (Auto) 16.9, [place] % (Auto) 8.3, Eos % (Auto) 1.0, Baso % (Auto) 0.5, Neut # (Auto) 6.1, Lymph # (Auto) 1.4, [place] # (Auto) 0.7, Eos # (Auto) 0.1, Baso # (Auto) 0.0, ESR 10, Sodium 138, Potassium 4.4, Chloride 101, Carbon Dioxide 28, Anion Gap 13.4, BUN 9, Creatinine 0.40 L, Estimated Creat Clear 183, Estimated GFR 186, Est GFR ( Amer) 225, Glucose 233 H, Hemoglobin A1c 8.7 H, Calcium 8.9, Total Bilirubin 0.5, AST 37 H, ALT 34, Alkaline Phosphatase 91, C-Reactive Protein 41.0 H, Total Protein 6.8, Albumin 4.1, Globulin 2.7, Albumin/Globulin Ratio 1.5, Serum HCG, Qual Negative 10/07/24 16:26: POC Glucose 100 10/07/24 21:41: POC Glucose 150 H 10/08/24 05:00: WBC 8.4, RBC 5.15, Hgb 12.3 D, Hct 40.3, MCV 78.3 L, MCH 23.9 L, MCHC 30.5 L, RDW 15.1, Plt Count 161, MPV 10.5 H, Neut % (Auto) 71.4, Lymph % (Auto) 18.8, [place] % (Auto) 7.4, Eos % (Auto) 1.3, Baso % (Auto) 0.6, Neut # (Auto) 6.0, Lymph # (Auto) 1.6, [place] # (Auto) 0.6, Eos # (Auto) 0.1, Baso # (Auto) 0.1, Sodium 138, Potassium 4.1, Chloride 100, Carbon Dioxide 32 H, Anion Gap 10.1, BUN 8, Creatinine 0.50 L D, Estimated Creat Clear 141, Estimated GFR 144, Est GFR ( Amer) 174 D, Glucose 175 H D, Calcium 9.0, Magnesium 2.0, Total Bilirubin 0.3, AST 25 D, ALT 31, Alkaline Phosphatase 97, Total Protein 6.0 L, Albumin 3.6 D, Globulin 2.4, Albumin/Globulin Ratio 1.5 I & O for Last 24 hours: Intake & Output 10/05/24 10/06/24 10/07/24 10/08/24 23:59 23:59 23:59 23:59 Intake Total 480 / 600 600 / 600 Output Total 300 / 300 Balance 480 / 600 300 / 300 Weight 131.995 kg 134.859 kg Microbiology Reports for the Last 24 Hours: Microbiology 10/07/24 11:30 Blood Blood Culture - Preliminary NO GROWTH AFTER 24 HOURS 10/07/24 11:12 Blood Blood Culture - Preliminary NO GROWTH AFTER 24 HOURS Results Data Completed and Pending Labs on day of discharge: Labs from last 24 hours 10/08/24 10/07/24 10/07/24 05:00 21:41 16:26 WBC 8.4 RBC 5.15 Hgb 12.3 D Hct 40.3 MCV 78.3 L MCH 23.9 L MCHC 30.5 L RDW 15.1 Plt Count 161 MPV 10.5 H Neut % (Auto) 71.4 Lymph % (Auto) 18.8 [place] % (Auto) 7.4 Eos % (Auto) 1.3 Baso % (Auto) 0.6 Neut # (Auto) 6.0 Lymph # (Auto) 1.6 [place] # (Auto) 0.6 Eos # (Auto) 0.1 Baso # (Auto) 0.1 ESR Sodium 138 Potassium 4.1 Chloride 100 Carbon Dioxide 32 H Anion Gap 10.1 BUN 8 Creatinine 0.50 L D Estimated Creat Clear 141 Estimated GFR 144 Est GFR ( Amer) 174 D Glucose 175 H D POC Glucose 150 H 100 Hemoglobin A1c Calcium 9.0 Magnesium 2.0 Total Bilirubin 0.3 AST 25 D ALT 31 Alkaline Phosphatase 97 C-Reactive Protein Total Protein 6.0 L Albumin 3.6 D Globulin 2.4 Albumin/Globulin Ratio 1.5 Serum HCG, Qual 10/07/24 11:30 WBC 8.3 RBC 5.54 H Hgb 13.7 Hct 42.8 MCV 77.3 L MCH 24.7 L MCHC 32.0 RDW 15.1 Plt Count 169 MPV 10.6 H Neut % (Auto) 72.8 Lymph % (Auto) 16.9 [place] % (Auto) 8.3 Eos % (Auto) 1.0 Baso % (Auto) 0.5 Neut # (Auto) 6.1 Lymph # (Auto) 1.4 [place] # (Auto) 0.7 Eos # (Auto) 0.1 Baso # (Auto) 0.0 ESR 10 Sodium 138 Potassium 4.4 Chloride 101 Carbon Dioxide 28 Anion Gap 13.4 BUN 9 Creatinine 0.40 L Estimated Creat Clear 183 Estimated GFR 186 Est GFR ( Amer) 225 Glucose 233 H POC Glucose Hemoglobin A1c 8.7 H Calcium 8.9 Magnesium Total Bilirubin 0.5 AST 37 H ALT 34 Alkaline Phosphatase 91 C-Reactive Protein 41.0 H Total Protein 6.8 Albumin 4.1 Globulin 2.7 Albumin/Globulin Ratio 1.5 Serum HCG, Qual Negative Preliminary micro results at discharge 10/07/24 11:30 Blood Culture - Preliminary Blood NO GROWTH AFTER 24 HOURS 10/07/24 11:12 Blood Culture - Preliminary Blood NO GROWTH AFTER 24 HOURS DS: Diagnosis Discharge Diagnosis (1) Hypothyroidism: Status: Acute Code(s): E03.9 - Hypothyroidism, unspecified (2) Type 2 diabetes mellitus: Status: Acute Code(s): E11.9 - Type 2 diabetes mellitus without complications (3) Essential hypertension: Status: Acute Code(s): I10 - Essential (primary) hypertension (4) Morbid obesity: Status: Acute Code(s): E66.01 - Morbid (severe) obesity due to excess calories (5) Otitis externa: Status: Acute Code(s): H60.90 - Unspecified otitis externa, unspecified ear Meds Home Medications and Allergies Home Medications ?Medication ?Instructions ?Recorded ?Confirmed ?Type buspirone 15 mg tablet 15 mg PO BID 11/16/21 10/07/24 History sertraline 100 mg tablet 150 mg PO DAILY Depression 08/17/22 10/07/24 History ferrous sulfate 325 mg (65 mg 325 mg PO DAILY Supplement 90 days 06/08/23 10/07/24 Rx iron) tablet #90 tabs bisoprolol fumarate 5 mg tablet 5 mg PO DAILY HTN 90 days #90 tabs 12/23/23 10/07/24 Rx levothyroxine 175 mcg tablet 175 mcg PO DAILY 90 days #90 tabs 04/25/24 10/07/24 Rx amlodipine 5 mg tablet 5 mg PO DAILY #90 tabs 08/22/24 10/07/24 Rx cholecalciferol (vitamin D3) 1,250 1,250 mcg PO WEEKLY #5 caps 09/04/24 10/07/24 Rx mcg (50,000 unit) capsule aripiprazole 15 mg tablet (Abilify) 15 mg PO HS 10/07/24 10/07/24 History empagliflozin 10 mg tablet 10 mg PO DAILY 30 days #30 tabs 10/08/24 Rx (Jardiance) sulfamethoxazole 800 1 tab PO BID 10 days #20 tabs 10/08/24 Rx mg-trimethoprim 160 mg tablet New Prescriptions to Start Prescriptions: empagliflozin [Jardiance] Chavo Evangelista sulfamethoxazole-trimethoprim Chavo Evangelista Allergies Allergy/AdvReac Type Severity Reaction Status Date / Time morphine Allergy Intermediate I-HIVES Verified 09/04/24 10:04 rituximab (From Rituxan) Allergy Verified 09/04/24 10:04 Discharge Plan Disposition Patient Disposition: Home, Self-Care Condition: Fair Follow up Plan Follow up with: Libby Vladerrama APRN [Primary Care Provider, Family Practice] - 1 week Prescriptions/Medication Reconciliation: New sulfamethoxazole-trimethoprim 800-160 mg Tablet 1 tab PO BID 10 Days Qty: 20 0RF Jardiance 10 mg tablet 10 mg PO DAILY 30 Days Qty: 30 0RF Continued sertraline 100 mg tablet 150 mg PO DAILY buspirone 15 mg tablet 15 mg PO BID ferrous sulfate 325 mg (65 mg iron) tablet 325 mg PO DAILY 90 Days Qty: 90 3RF bisoprolol fumarate 5 mg tablet 5 mg PO DAILY 90 Days Qty: 90 0RF levothyroxine 175 mcg tablet 175 mcg PO DAILY 90 Days Qty: 90 0RF amlodipine 5 mg tablet 5 mg PO DAILY Qty: 90 0RF cholecalciferol (vitamin D3) 1,250 mcg (50,000 unit) capsule 1,250 mcg PO WEEKLY Qty: 5 2RF aripiprazole [Abilify] 15 mg tablet 15 mg PO HS Problem Reconciliation Problems Reviewed?: Yes Patient Discharge Instructions Additional Instructions: I have started Jardiance 10 mg to help manage her diabetes. You may experience increased urination. Please follow-up with your PCP within 1 week for further management of your ear infection and diabetes. Patient Instructions: Cellulitis Print Language: Mohawk Providers Primary Care Provider: Libby Valderrama Admit Provider: Chavo Evangelista Attending Provider: Chavo Evangelista
[2024-10-08 11:56] LABS: POC Glucose,Bedside 199 (70-110)
[2024-10-08 14:59] LABS: POC Glucose,Bedside 201 (70-110)
--- NOTE | 2024-10-09 10:06 | SW/DCPLANNER ---
Spoke with patient on the phone. Patient stated that she is doing alot better and that her ear is looking better. Patient stated that she is aware of her upcoming appointments. Patient stated that she was able to get her new medicine picked up from [facility] pharmacy. Patient stated that she has no concerns or questions at this time. Ar Hancock
== END 2024-10-08 12:46 | disposition home or self-care (01) ==
LOC: ER 11:11 → 2ND 14:35
PROVIDERS: Admitting Provider Student in an Organized Health Care Education/Training Program; Emergency Provider Student in an Organized Health Care Education/Training Program; PCP Nurse Practitioner Family; Visit Provider Student in an Organized Health Care Education/Training Program
DX: H60.91 Unspecified otitis externa, right ear (principal); E11.9 Type 2 diabetes mellitus without complications; E03.9 Hypothyroidism, unspecified; I10 Essential (primary) hypertension; E66.01 Morbid (severe) obesity due to excess calories; F41.8 Other specified anxiety disorders; Z68.42 Body mass index [BMI] 45.0-49.9, adult; Z79.899 Other long term (current) drug therapy; Z79.890 Hormone replacement therapy; Z88.5 Allergy status to narcotic agent; Z88.8 Allergy status to other drugs, medicaments and biological substances
CPT/HCPCS: 70480; 96365; 96375; 96376 ×2; 36415; 70486; 70487; 70491; 80053; 82962; 83036; 83735; 84703; 85025; 85651; 86140; 87040; G0378; J1171; J2543; J3370; J7050; J7120; Q9967

== ENCOUNTER 2024-10-18 16:04 | Outpatient (CLI) | payer BC, SELFPAY ==
[2024-10-18 22:36] LABS: Hepatitis C Ab Qual. W/ RFX NEGATIVE (Negative)
[2024-10-21 08:10] LABS: Hepatitis B Surface Antigen Negative (Negative)
--- OUTSIDE RECORDS SUMMARY | 2024-10-22 10:52 | XMS_ITS | Data Portability ---
Author Organization [facility], autoContract Address [address] [place] [address] Care Team Providers Care Drying Room Supervisor Name Role Phone TAHIR CABALLERO Primary Care Provider [phone] MADHURI COATS Infrastructure Software Engineer [phone] Assessment Encounter Date Assessment Date Assessment LastModified [...] D + vit D 10k IU daily. [facility] Not available 05/17/2024 14:39:58 06/18/2024 06/18/2024 Ms. Michael is a 29 yo F sp OAGB on 01/23/[address] Faust (now 4 months post op) cchaconas Not available 06/18/2024 11:53:37 09/25/2024 09/25/2024 Ms. Michael is a 29 yo F sp OAGB on 01/23/[address] Fr. Faust cchaconas Not available 09/25/2024 12:17:52 Plan of Treatment [...] Organization Detail LastModifiedTime 01/20/20 24 01/20/2024 elect josear dcgr am No observ ation record ed. [facility] [place] [address], [place], [address], 01/30/2024 09:33:47 01/20/2008/30/2023 trans -thor acic echoc ardio gram (TTE) (PROC ) No observ ation record ed. [facility] (Med Record) [address], [place], [address], 01/31/2024 14:52:55 Result Notes None recorded. Problems Name Problem SNOMED Code Status Onset Date Resolution Date Notes Provider Name and Address Organization Details Recorded Time Primary ITP (immune thrombocytopen ia) 749131760 Active 2023 Irene harris [facility] 16:35:27 Morbid obesity 676339337 Active 2023 RODRIGUEZ Dennison [facility] 4 17:16:15 Type 2 diabetes mellitus 64847108 Active 2023 Irene harris, [facility] 4 17:18:17 Essential hypertension 52305333 Active 2023 Irene Bobby harris, [facility] 4 17:18:28 Hypothyroidism 42084120 Active 2023 Irene harris, [facility] 4 17:25:14 Sleep apnea 61475726 Active 2023 Irene harris, [facility] 4 17:25:31 Abdominal pain 49424256 Active 2024 KURTIS JEROME MD [address],[facility] [address], [place], [address], [facility] 5 11:50:27 Problem Notes None recorded. Procedures Surgical History Date Name Laterality Status Provider Name and Address Organization Details Recorded Time 5 Telehealth completed KURTIS JEROME MD [address], [place], [address], [facility] 09/25/2024 11:09:21 5 Telehealth completed KURTIS JEROME MD [address], [place], [address], [facility] 06/18/2024 11:41:07 4 Telehealth completed Angela [address], [place], [address], [facility] 02/10/2024 11:37:12 4 Telehealth completed KURTIS JEROME MD [address], [place], [address], [facility] 01/12/2024 21:10:13 4 Telehealth completed [address], [place], [address], [facility] 11/17/2023 17:17:48 4 Telehealth completed Angela [address], [place], [address], [facility] 08/22/2023 11:08:39 6 Other completed Angela [address], [place], [address], [facility] 11/17/2023 17:25:08 8 Back Surgery completed Irene Floresda [facility] 07/29/2023 16:29:55 Imaging Results None recorded. Procedure Notes None recorded. Medical Equipment None Reported. Allergies Allergen ID Allergen Name Allergen Category Reaction Reaction Severity Criticality Documentation Date Start Date Code Code System Note Provider Name and Address Organization Details Recorded Time 73509 morphine medicatio n Not available Not available Not available 07/29/2023 7052 [facility] 16:29:11 71474 rituximab medicatio n Not available Not available Not available 07/29/2023 69044 1 [facility] 16:29:11 Medications Name Sig [...] Updated DateTime 05/17/2024 165.1 cm 50.4 kg/m2 786648.49 g Irene Rosales [facility] 05/17/2024 12:19:51 Date Recorded Body weight Body mass index (BMI) Body height Provider Name and Address Organization Details Last Updated DateTime 06/18/2024 714729.12 g 49.8 kg/m2 165.1 cm KURTIS JEROME MD [address], [place], [address] 06/18/2024 11:34:25 Date Recorded Body weight Body mass index (BMI) Body height Provider Name and Address Organization Details Last Updated DateTime 09/25/2024 006531.38 g 48.4 kg/m2 165.1 cm KURTIS JEROME MD [address], [place], [address] 09/25/2024 11:05:49 Date Recorded Body height Body mass index (BMI) Body weight Provider Name and Address Organization Details Last Updated DateTime 02/10/2024 165.1 cm 55.7 kg/m2 552966.44 g Angela [address], [place], [address] 02/10/2024 11:41:06 Date Recorded Body height Body mass index (BMI) Body weight Provider Name and Address Organization Details Last Updated DateTime 03/09/2024 165.1 cm 54.6 kg/m2 838297.3 g Irene FRIAS [facility] 03/09/2024 12:06:03 Social History Question Answer Notes LastModified by [employer] Details LastModified Time Tobacco Smoking Status Never Smoker Irene Rosales [facility] 07/29/2023 16:29:49 Is Blood Transfusion Acceptable In An Emergency? Yes Information not available 07/29/2023 How Many Children Do You Have? 0 Information not available 07/29/2023 What Is Your Relationship Status? Information not available 07/29/2023 Sex: Unknown Functional Status Question Answer Note LastModified by [employer] Details LastModified Time What is your level [...] available 2023 16:29:19 Medical History Condition Response Thyroid Disease Y Bleeding Disorders Y Depression Y Anxiety Disorder Y Anemia Y Diabetes Y Morbid Obesity Y Sleep Apnea Y Hypertension Y Gynecological HistoryNo gynecological history recorded. Obstetrics History GPAL:G 0 P 0 0 0 0 Past Encounters Encounter ID Performer Location Encounter Start Date Encounter Closed Date Diagnosis/Indication Diagnosis SNOMED-CT Code Diagnosis ICD10 Code Diagnosis Note [id number] MD ZAK Munguia [facility] [address] [facility],[address] [place] [address] 07/29/2023 16:28:37 08/04/2023 19:37:25 Morbid obesity 348242791 E66.01 BMI 52.4. Patient interested in bariatric surgery for treatment of class 3 obesity. Type 2 den betes mellitus 42654368 Z79.4 Diagnosed 1.5 years ago. Most recent A1c 14% per patient. On basal + bolus insulin and metformin. Followed by endocrine. Essential hypertension 88750766 I10 On bisoprolol -HCTZ and nifedipine Hypothyroidism 34779236 E03.9 On levothyrox ine Sleep apnea 12846749 G47 .30 Diagnosed a year ago. Not adherent with CPAP. Primary IT P (immune thrombocytopenia) 895686423 D69.59 Diagnosed in 2020 during which she received IV steroids. Followed by hematology . Most recent platelet count 250k per patient. [id number] MD ZAK Munguia [facility] [address] [facility],[address] [place] [address] 08/22/2023 09:58:12 09/14/2023 22:52:26 Morbid obesity 598056950 E66.01 The pt is interested in surgery to help with obtaining a healthier weight in order to improve their high blood pressure and prevent the developmen t of other obesity related comorbidit ies. Type 2 den betes mellitus 02203881 Z79.4 14% 05/2023. Will re-do prior to surgery. Looking for downward trend. Pt is understand ing of this. [id number] MD ZAK Munguia [address] [facility],[address] [place] [address] 11/17/2023 17:13:31 11/18/2023 13:46:28 Morbid obesity 839418990 E66.01 I had a long discussion with [...] that time. Type 2 den scout mellitus 58830279 Z79.4 She is on oral metformin and insulin and her hemoglobin A1c has increased from 14-11 but still unacceptab ly high for surgery. I told her about exercise as a described above and asked her to remeasure in 8 weeks Primary IT P (immune thrombocytopenia) 293755005 D69.59 Patient is not on any treatment currently. Her platelet count is 170 today. This affects her with petechia In her lower legs and generalize d fatigue [id number] KURTIS JEROME MD [facility] [address] [place] [address] 01/12/2024 11:05:27 01/13/2024 13:53:48 Morbid obesity 977781702 E66.01 Ms. Michael is a 28 yo [...] up with us in the short and termite treater and understand s all the signs and symptoms that would necessitat e to call us. Starts liquid diet 01/15; emphasized importance of adequate hydration before and after surgery. Reminded having all medication s in crushable form for 6 weeks after surgery. Reviewed pre-op instructio ns and answered questions. Post-op f/u scheduled 01/25. Primary IT P (immune thrombocytopenia) 757575589 D69.59 stable for 5 years, not required any treatments with steroids.. [id number] Jeanna Faust MD [facility] [address] [place] [address] 01/26/2024 10:16:28 01/26/2024 10:49:22 Postoperative visit 828704297 Z48.89 [id number] CHUN OWUSU MD [facility] [address] [address] 02/10/2024 11:36:28 03/09/2024 03:48:44 [id number] Jeanna Faust MD [facility] [address] [place] [address] 03/09/2024 11:59:54 03/12/2024 15:17:11 Postoperative visit 072890960 Z48.89 s/p OAGB 01/22 [id number] Jeanna Faust MD [facility] [address] [place] [address] 05/17/2024 11:59:49 05/17/2024 16:22:54 Morbid obesity 115997989 E66.01 s/p OAGB Abdominal pain 25521186 R10.9 postprandi al; to start daily pepcid and decrease carbohydra te intake Type 2 den betes mellitus 26747873 Z79.4 Most recent A1c 7.8% and AM BG readings above goal. To resume metformin 500 mg BID. Encouraged follow up with PCP. [id number] KURTIS JEROME MD [facility] [address] [facility] [address] [place] [address] 06/18/2024 11:30:15 06/18/2024 15:58:36 Type 2 diabetes mellitus 90728270 Z79.4 improved, no longer using insulin or metformin last a1c was 7.8 , she has fu with her endocrinol ogist in a few weeks Morbid obesity 435223814 E66.01 encouraged pt to use baritastic applicatio [...] 2 months to discuss progress. Abdominal pain 60075638 R10.9 post prandial pain after eating c/f symptomati c gallstones . encouraged patient to fu with her PCP for RUQ u/s and may require cholecyste ctomy. persistent RUQ pain with nausea/vom iting/ and fevers/chi lls recommend pt go to the emergency room d/t risk of acute cholecysti tis. [id number] KURTIS JEROME MD [facility] [address] [facility] [address] [place] [address] 09/25/2024 10:56:24 09/25/2024 16:54:07 Morbid obesity 633272592 E66.01 current weight 291 lbs (down 64 [...] DISCOUNT Miracle Michael 09/19/2023 2 [place] [id number] Melanie Michael [id number] Miracle Michael 05/17/2024 CARRUM Miracle Michael CARRUM CARRUM Miracle Michael 09/22/2024 1 [place] [id number] Melanie Michael [id number] 55 Miracle Michael 10/13/2023 1 [place] [id number] Melanie Michael [id number] Miracle Michael Notes Date Note Type [...] of OAGB.Regular bowel movements. [address], [place], [address], [facility] 02/13/2024 11:48:17 03/09/2024 text/html This [...] for 6 week s/p OAGB 01/23/24 at [facility].Initial weight 362 lbs, BMI 60.Current weight 328 [...] months. Remains on prophylactic PPI. Irene harris, [facility] 03/09/2024 15:20:40 05/17/2024 text/html This [...] month follow up s/p OAGB 01/23/24 at [facility].Initial weight 362 lbs, BMI 60.Current weight 303 [...] transitioned to amlodipine 5 mg. Irene harris [facility] 05/17/2024 14:49:57 06/18/2024 text/html [...] KURTIS JEROME MD [address], [place], [address], [facility] 06/18/2024 11:54:55 09/25/2024 text/html Ms. Michael is a 29 yo F sp OAGB on 01/23/24 with Fr. Francetficurrent weight 291 lbs (down 64 lbs) // [...] KURTIS JEROME MD [address], [place], [address], [facility] 09/25/2024 12:18:12 OBGyn Episode No OBEpisode recorded.
--- OUTSIDE RECORDS SUMMARY | 2024-10-22 10:52 | XMS_ITS | Clinical Summary ---
Author Organization [facility] Address [address] [place] [address] Care Team Providers Care Candy Decorator Name Role Phone Eric Freire MD Primary [...] day. 3 Active Blood Glucose Monitoring Suppl (JibestreamTouch Verio Flex System) w/Device kit USE DIRECTED FOR DIABETES 3 Active busPIRone (Buspar) 15 MG tablet Take 1 tablet (15 mg) by mouth. 3 Active ferrous sulfate 325 (65 Fe) MG EC tablet Take 1 tablet (325 mg) by mouth 1 (one) time each day. 3 Active Lancets (OneTouch Delica Plus Mymssk09S) misc USE DIRECTED FOR DIABETES 3 Active [...] mellitus with other specified complication, unspecified whether director long term care insulin use (CMS/HCC) Apply to effected area daily for 2 weeks 60 g 1 4 Active Additional Information Patient not taking.Reported on 07/03/2024 Continuous Blood Gluc Enterprise Analyst (FreeStyle Mariam 3 [place]) deviceIndication s:Type 2 diabetes mellitus with other specified complication, unspecified whether fpc insulin use (CMS/HCC) 1 Device 4 (four) [...] mellitus with other specified complication, unspecified whether fpc insulin use (CMS/HCC) Take 2 tablets (1,000 [...] mellitus with other specified complication, unspecified whether fpc insulin use ([facility]) Instructed to inject 10 units before breakfast [...] [facility]-HIV Screening 1993 [facility]-Hepatitis C Screening 1993 [facility]-Infant/Child/Adol SDOH Screenings 1993 [facility]-IPV Vaccines (2 of [...] 2 - PCV) 2012 [facility]-Pap Smear 2014 [id number] Vaccine (3 - Pfizer risk series) 08/06/2020 07/09/2020, 06/11/2020 [facility]-Cervical Cancer Screening 2023 [facility]-HPV/Cotest 2023 [facility]-Depression Screening 01/28/2024 01/27/2023 [facility]-Diabetes: Hemoglobin A1C 10/02/2024 07/03/2024, 03/20/2024, 01/10/2024, Additional history exists [facility]-Influenza Vaccine (#1) 12/17/202401/13, 01/22/2021, 01/16/2019 [facility]-DTaP,Tdap,and Td Vaccines (3 - [...] mellitus with other specified complication, unspecified whether director long term care insulin use ([facility]) from Last 3 Months or Most Recently Relevant to Health Maintenance Results * POCT glycosylated hemoglobin (Hb A1C) (07/03/2024 4:21 PM EDT) POCT Hemoglobin A1C 7.9 <5.7% Non-Diabe tic % [facility] Kit Lot Number [id number] [facility] Kit Expiration Date 02/15/2026 [facility] Blood Venous blood specimen / Unknown 07/03/2024 4:21 PM EDT Rose Kraus TRAVELING CRANE OPERATOR POINT OF CARE TEST ENTER/JEFFREY T ORDERABLES Final Result [facility] [address] [id number] from Last 3 Months or Most Recently Relevant to Health Maintenance Insurance [facility] [place] [id number] ANTHEM Care Teams Candy Decorator Relationship Specialty Start Date End Date Eric Freire MD PCP - General Family Medicine 01/27/23
--- OUTSIDE RECORDS SUMMARY | 2024-10-22 10:52 | XMS_ITS | Continuity of Care Document ---
Author Organization [facility], [facility] Address [address] [place] [address] Care Team Providers Care Apartment Assistant Manager Name Role Phone TAHIR CABALLERO Primary Care Provider MADHURI COATS Conservation Enforcement Officer [phone] Assessment Encounter Date Assessment Date Assessment LastModified [...] Recorded Time Primary ITP (immune thrombocytopen ia) 631911613 Active 2023 Irene harris [facility] 4 16:35:27 Morbid obesity 731361620 Active 2023 Irene harris [facility] 17:16:15 Type 2 diabetes mellitus 63359456 Active 2023 Irene harris [facility] 17:18:17 Essential hypertension 24922520 Active 2023 Irene harirs, [facility] 4 17:18:28 Hypothyroidism 69303361 Active 2023 Irene harris, [facility] 4 17:25:14 Sleep apnea 52952081 Active 2023 Irene harris, [facility] 4 17:25:31 Abdominal pain 92042469 Active 2024 KURTIS JEROME MD [address], [place], [address], [facility] 5 11:50:27 Problem Notes None recorded. Procedures Surgical History Date Name Laterality Status Provider Name and Address Organization Details Recorded Time 5 Telehealth completed KURTIS JEROME MD [address], [place], [address], [facility] 09/25/2024 11:09:21 5 Telehealth completed KURTIS JEROME MD [address], [place], [address], [facility] 06/18/2024 11:41:07 4 Telehealth completed Angela [address], [place], [address], [facility] 02/10/2024 11:37:12 4 Telehealth completed KURTIS JEROME MD [address], [place], [address], [facility] 01/12/2024 21:10:13 4 Telehealth completed Angela [address], [place], [address], [facility] 11/17/2023 17:17:48 4 Telehealth completed Angela [address], [place], [address], [facility] 08/22/2023 11:08:39 6 Other completed Angela [address], [place], [address], [facility] 11/17/2023 17:25:08 8 Back Surgery completed Irene Rosales [facility] 07/29/2023 16:29:55 Imaging Results None recorded. Procedure Notes None recorded. Medical Equipment None Reported. Allergies Allergen ID Allergen Name Allergen Category Reaction Reaction Severity Criticality Documentation Date Start Date Code Code System Note Provider Name and Address Organization Details Recorded Time 00379 morphine medicatio n Not available Not available Not available 07/29/2023 7052 [facility] 16:29:11 [address]132 rituximab medicatio n Not available Not available Not available 07/29/2023 29171 1 [facility] 16:29:11 Medications Name Sig Start [...] Address Organization Details Last Updated DateTime 09/25/2024 019349.38 g 48.4 kg/m2 165.1 cm KURTIS JEROME MD [address], [place], [address], [facility] 09/25/2024 11:05:49 Social History Question Answer Notes LastModified by Organizat [employer]5 Details LastModified Time Tobacco Smoking Status Never Smoker Irene harris, [facility] 07/29/2023 16:29:49 Is Blood [...] available 2023 16:29:19 Medical History Condition Response Anxiety Disorder Y Diabetes Y Thyroid Disease Y Anemia Y Sleep Apnea Y Bleeding Disorders Y Hypertension Y Depression Y Morbid Obesity Y Gynecological HistoryNo gynecological history recorded. Obstetrics History GPAL:G 0 P 0 0 0 0 Past Encounters Encounter ID Performer Location Encounter Start Date Encounter Closed Date Diagnosis/Indication Diagnosis SNOMED-CT Code Diagnosis ICD10 Code Diagnosis Note [id number] KURTIS JEROME MD [facility] [address] [place] [address] 09/25/2024 10:56:24 09/25/2024 16:54:07 Morbid obesity 990542628 E66.01 current weight 291 lbs (down 64 [...] Member ID Guarantor Name 09/25/2024 1 [id number] [id number] Melanie Michael [id number] 55 Miarcle Michael Notes Date Note Type Note Provider [...] with iron. KURTIS JEROME MD [address], [place], [address], [facility] 09/25/2024 12:18:12 OBGyn Episode No OBEpisode recorded.
--- OUTSIDE RECORDS SUMMARY | 2024-10-22 10:52 | XMS_ITS | Clinical Summary ---
Author Organization [email or web address] ([place], [place], [place], [place]) Address [address] [place] [address] Care Team Providers Care Client Development Consultant Name Role Phone Eric Freire MD Primary Care Provider [phone]- [phone] Allergies Active Allergy Reactions Criticality Noted Date [...] drink = 0.6 oz pur e alcohol) Family and Community Support Answer Gilberto e Recorded Help with Day to Day Activities Not on file 04/27/2023 Feeling Lonely or Isolated Not on file 04/27 Educational Attainment Answer Date Benito rded Speak language other than Kenyan at home Not on file 04/27/2023 Want help with school or training Not on file 04/27/2023 Substance Use Answer Date Recorded Used [...] 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 Not on file Not [...] Description 11/16/2024 8:15 AM EDT Office Visit [facility] [address] [place] [address] Aime Walker MD [address] [place] [address] Health Maintenance Due Date Last Done Comments Diabetic Kidney Health Evaluation (KED) 1993 Diabetic Eye Exam 2003 Depression Screening (12+) 2005 HIV Screening 2008 Hepatitis C Screening 2011 Pneumococcal Vaccine: 0-49 Y ears (1 of 2 - PCV) 2012 Lipid Panel 2013 Pap Smear 2014 COVID-19 VACCINE (3 - 2023- season) 2023, 06/11/2020 Hemoglobin A1C 02/17/2024 11/17/2023 Influenza Vaccine (#1) 2024 Tobacco Cessation Counseling and Screening (12+) [...] A1C 11.1 % 11/17/2023 1:28 PM EDT [facility] Comment: Hemoglobin A1C levels are related to mean glucose during the preceding 2-3 months. Less than 7% demonstrates glycemic control in diabetic patients. Hemoglobin AlC % Suggested Diagnosis > or = 6.5 Diabetic 5.7 - 6.4 Prediabetic <5.7 Non-diabetic eAVG Glucose 271.87 mg/dL 11/17/2023 1:28 PM EDT [facility] Blood Venipuncture / Unknown 11/17/2023 12:50 PM EDT 11/17/2023 12:57 PM EDT us Libby Valderrama ANALYSIS ENGINEER LAB BLOOD ORDERABLES F inal Result [facility] [address] [phone] from Last 3 Months or Most Recently Relevant to Health Maintenance Insurance [facility] [place] [phone] BLUE CROSS/BLUE SHIELD Care Teams Client Development Consultant Relationship Specialty Start Date End Date Eric Freire MD [address] [place] [address] [place] [address] PCP - General Family Medicine 06/08/23
--- OUTSIDE RECORDS SUMMARY | 2024-10-22 10:52 | XMS_ITS | Referral Summary ---
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 Not [...] Description 11/16/2024 8:15 AM EDT Office Visit [facility] - [address] [place] [address] Aime Walker MD [address] [place] [address] Procedures Procedure Name Priority Date/Time Associated Diagnosis Comments HEMOGLOBIN A1C Routine 11/17/2023 12:50 PM EDT 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 Less than 7% demonstrates glycemic control in diabetic patients. Hemoglobin AlC % Suggested Diagnosis > or = 6.5 Diabetic 5.7 - 6.4 Prediabetic <5.7 Non-diabetic eAVG Glucose 271.87 mg/dL 11/17/2023 1:28 PM EDT [facility] Blood Venipuncture / Unknown 11/17/2023 12:50 PM EDT 11/17/2023 12:57 PM EDT us Libby Valderrama ELECTRIC METER REPAIRER LAB BLOOD ORDERABLES F inal Result [facility] [address] [place] [address], [facility] [phone] from Last 3 Months or Most Recently Relevant to Health Maintenance Insurance [facility] [place] [phone] BLUE CROSS/BLUE SHIELD Care Teams Deicer Repairer Relationship Specialty Start Date End Date Eric Freire MD [address] [place] [address] [place] [address] PCP - General Family Medicine 06/08/23
--- OUTSIDE RECORDS SUMMARY | 2024-10-22 10:52 | XMS_ITS | Encounter Summary ---
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) [...] Date Benito rded Speak language other than [place] Citizen at home Not on file 04/27/2023 Want [...] 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 Not on file Not on file documented as of this encounter Plan of Treatment Upcoming Encounters Date Type Department Care Team (Late st Contact Info) Description 11/16/2024 8:15 AM EDT Office Visit [facility] - [place] [address] [place] [address] Aime Walker MD [address] [place] [address] documented as of this encounter Results * Prothrombin time/INR (11/17/2023 12:50 PM EDT) Protime 10.0 9.0 - 12.0 seconds 11/17/2023 1:18 PM EDT [facility] INR 0.97 0.80 - 1.10 11/17/2023 1:18 PM EDT [facility] Comment: Recommended therapeutic ranges using International Normalized Ratio (INR) are: INR RANGE 2.0 - 3.0 Routine oral anticoagulant therapy 2.5 - 3.5 Oral anticoagulant therapy for patients with thromboembolic events on standard doses of Coumadin and those with mechanical heart valves. Blood Venipuncture / Unknown 11/17/2023 12:50 PM EDT 11/17/2023 12:57 PM EDT us Libby Valderrama MANAGER CUSTOMER SERVICE LAB BLOOD ORDERABLES F inal Result [facility] [address] [place] [address], [facility] [phone] * Hemoglobin A1c (11/17/2023 12:50 PM EDT) Hemoglobin A1C 11.1 % 11/17/2023 1:28 PM EDT [facility] Comment: Hemoglobin A1C levels are related to mean glucose during the preceding 2-3 months. Less than 7% demonstrates glycemic control in diabetic patients. Hemoglobin AlC % Suggested Diagnosis > or = 6.5 Diabetic 5.7 - 6.4 Prediabetic <5.7 Non-diabetic eAVG Glucose 271.87 mg/dL 11/17/2023 1:28 PM EDT [facility] Blood Venipuncture / Unknown 11/17/2023 12:50 PM EDT 11/17/2023 12:57 PM EDT Libby EmilyAyers LAB BLOOD ORDERABLES F inal Result Performing Organization Address [facility]/ZIP Co de Phone Number [facility] [address] [place] [address] * TSH (11/17/2023 12:50 PM EDT) TSH 2.148 0.360 - 3.740 uIU/mL 11/17/2023 1:35 PM EDT [facility] Blood Venipuncture / Unknown 11/17/2023 12:50 PM EDT 11/17/2023 12:57 PM EDT Narrative [facility] - 11/17/2023 1:35 PM EDT Biotin supplements can cause clinically significant incorrect lab results. The FDA has seen an increase in the number of reported adverse events related to biotin interference with lab tests. Libby DiazAyers MANAGER CUSTOMER SERVICE LAB BLOOD ORDERABLES F inal Result Performing Organization Address City/[facility]/ZIP Co de Phone Number [facility] [address] [place] [address] * (ABNORMAL) CBC with automated diff (11/17/2023 12:50 PM EDT) WBC 10.6 4.8 - 10.8 K/ L 11/17/2023 1:00 PM EDT [facility] RBC 5.55(H) 3.50 - 5.20 M/ L 11/17/2023 1:00 PM EDT [facility] Hemoglobin 13.7 11.7 - 15.8 GM/DL 11/17/2023 1:00 PM EDT [facility] Hematocrit 42.1 35.0 - 47.0 % 11/17/2023 1:00 PM EDT [facility] MCV 76(L) 81 - 101 fL 11/17/2023 1:00 PM EDT [facility] MCH 24.7(L) 27.0 - 34.0 pg 11/17/2023 1:00 PM EDT [facility] MCHC 32.5 32.0 - 36.0 GM/DL 11/17/2023 1:00 PM EDT [facility] RDW 16.0(H) 11.5 - 14.5 % 11/17/2023 1:00 PM EDT [facility] Platelets 178 150 - 400 K/CU MM 11/17/2023 1:00 PM EDT [facility] MPV 9.7 9.4 - 12.4 fL 11/17/2023 1:00 PM EDT [facility] Nucleated Red Blood Cell 0.0 0 - 0.2 % 11/17/2023 1:00 PM EDT [facility] % Neutros 73 37 - 80 % 11/17/2023 1:00 PM EDT [facility] % Lymphs 18 10 - 50 % 11/17/2023 1:00 PM EDT [facility] % Monos 6 5 - 13 % 11/17/2023 1:00 PM EDT [facility] % Eos 1 0 - 7 % 11/17/2023 1:00 PM EDT [facility] % Baso 1 0 - 3 % 11/17/2023 1:00 PM EDT [facility] NRBC Absolute <0.01 0 - 0.012 K/ul 11/17/2023 1:00 PM EDT [facility] # Neutros 7.76(H) 2.00 - 6.90 K/ L 11/17/2023 1:00 PM EDT [facility] # Lymphs 1.96 0.60 - 3.40 K/ L 11/17/2023 1:00 PM EDT [facility] # Monos 0.64 0.00 - 0.90 K/ L 11/17/2023 1:00 PM EDT [facility] # Eos 0.14 0.00 - 0.70 K/ L 11/17/2023 1:00 PM EDT [facility] # Baso 0.06 0.00 - 0.20 K/ L 11/17/2023 1:00 PM EDT [facility] Immature Granulocytes-Re lative 0.80 % 11/17/2023 1:00 PM EDT [facility] # IG 0.08(H) 0.00 - 0.00 K/uL 11/17/2023 1:00 PM EDT [facility] Blood Venipuncture / Unknown 11/17/2023 12:50 PM EDT 11/17/2023 12:57 PM EDT Narrative [facility] - 11/17/2023 1:00 PM EDT [...] Blast? Flag noted Atypical Lymph flag noted Libby Valderrama MANAGER CUSTOMER SERVICE LAB BLOOD ORDERABLES F inal Result [facility] [address] [place], [place] [address] [phone] * (ABNORMAL) Comprehensive metabolic panel (11/17/2023 12:50 PM EDT) Sodium 140 136 - 145 meq/L 11/17/2023 1:35 PM EDT [facility] Potassium 3.9 3.5 - 5.1 meq/L 11/17/2023 1:35 PM EDT [facility] Chloride 102 98 - 107 meq/L 11/17/2023 1:35 PM EDT [facility] CO2 30 21 - 32 meq/L 11/17/2023 1:35 PM EDT [facility] Calcium 8.8 8.5 - 10.1 mg/dL 11/17/2023 1:35 PM EDT [facility] Glucose 258(H) 70 - 99 mg/dL 11/17/2023 1:35 PM EDT [facility] BUN 7 7 - 18 mg/dL 11/17/2023 1:35 PM EDT [facility] Creatinine 0.83 0.55 - 1.10 mg/dL 11/17/2023 1:35 PM EDT [facility] BUN/Creatinine 8 11/17/2023 1:35 PM EDT [facility] Albumin 2.9(L) 3.4 - 5.0 g/dL 11/17/2023 1:35 PM EDT [facility] Alkaline Phosphatase 108 46 - 116 U/L 11/17/2023 1:35 PM EDT [facility] ALT 25 12 - 78 U/L 11/17/2023 1:35 PM EDT [facility] AST 12(L) 15 - 37 U/L 11/17/2023 1:35 PM EDT [facility] Total Bilirubin 0.4 0.2 - 1.0 mg/dL 11/17/2023 1:35 PM EDT [facility] Protein, Total 6.3(L) 6.4 - 8.2 gm/dL 11/17/2023 1:35 PM EDT [facility] Anion Gap 12 11 - 22 11/17/2023 1:35 PM EDT [facility] A/G Ratio 0.9 11/17/2023 1:35 PM EDT [facility] Globulin 3.4 g/dL 11/17/2023 1:35 PM EDT [facility] Osmolality Calc 286.2 1:35 PM EDT [facility] eGFR (mL/min/1.73m2) >60 >=60 mL/min/1.7 3m2 11/17/2023 1:35 PM EDT [facility] Comment:ESTIMATED GFR IS NOT ACCURATE CREATININE CLEARANCE IN PREDICTING GLOMERULAR FILTRATION RATE. ESTIMATED GFR IS NOT APPLICABLE FOR DIALYSIS PATIENTS. 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
== END 2024-10-18 23:59 | disposition home or self-care (01) ==
LOC: LAB.DROPOF 10-22 10:35
PROVIDERS: PCP Nurse Practitioner Family; Visit Provider Nurse Practitioner Family
DX: Z11.59 Encounter for screening for other viral diseases (principal)
CPT/HCPCS: 86803; 87340; 87389

== ENCOUNTER 2024-12-28 09:29 | Outpatient (CLI) | payer BC, SELFPAY ==
--- OUTSIDE RECORDS SUMMARY | 2024-12-28 09:32 | XMS_ITS | Clinical Summary ---
Author Organization [facility] Address [address] [place] [id number] Care Team Providers Care Aluminum Welder Name Role Phone Eric Freire MD Primary Care Provider [phone] Allergies Active Allergy Reactions Criticality Noted Date Comments Morphine Hives Medium 12/06/2018 Rituximab Anaphylaxis High 01/12/2021 Pt states my throat closes, I get a fever. Medications ferrous sulfate 325 (65 FE) MG tablet Take 1 tablet by mouth Daily. 0 9 Active SYNTHROID 175 MCG tablet Take 175 mcg by mouth Daily. 3 9 Active bisoprolol (ZEBeta) 5 MG tablet TAKE 1 TABLET BY MOUTH DAILY. PLEASE CONTACT OFFICE FOR APPT. 90 tablet 1 1 Active NIFEdipine XL (PROCARDIA XL) 30 MG 24 hr tablet Take 1 tablet by mouth Daily. Needs appt or defer to Primary Care Provider. 30 tablet 1 Active ARIPiprazole (ABILIFY) 15 MG tablet Take 7.5 mg by mouth 2 (Two) Times a Day. 2 Active busPIRone (BUSPAR) 15 MG tablet Take 15 mg by mouth 3 (Three) Times a Day. 2 Active sertraline (ZOLOFT) 50 MG tablet TAKE 1/2 ORAL TAB DAILY X 1 WEEK AND THEN INCREASE TO 1 ORAL TAB DAILY 2 Active norethindrone (MICRONOR) 0.35 MG tabletIndications: PCOS (polycystic ovarian syndrome),Encounte r for surveillance of contraceptive pills Take 1 tablet by mouth Daily. 84 tablet 4 2 Active Active Problems Problem Noted Date Diagnosed Date Encounter for surveillance of contraceptive pill s 07/03/2020 Overview (07/03/2020): Continue Micronor for now. PCOS (polycystic ovarian syndrome) 07/02/2020 Overview (07/02/2020): Diagnosed with oligomenorrhea, and elevated testosterone. Treated with progestin only pills Type 2 diabetes mellitus 07/02/2020 Hypertension 07/02/2020 Hypothyroidism (acquired) 07/02/2020 Morbid obesity with BMI of 50.0-59.9, adult 06/16 Overview (09/29/2021): Long discussion with patient regarding concern for morbid obesity, hypertension, and diabetes with regards to getting . Strongly suggested weight loss before trying to get . Patient declines dietitian. Patient reports she looked into weight loss surgery and is not a candidate secondary to insurance not paying for it. She wants to get , however I am reluctant to prescribe medicines at her current BMI to help with ovulation at this time. I discussed referral to [facility]. My concern is multiples at her current weight. We discussed health profile. Patient agrees to go back on progestin only pills for now while she works on weight loss. She reports she is 36 pounds down in the past 5 months. Family History Medical History Relation Name Comments Heart disease Father Obesity Father Diabetes Maternal Grandfather Heart disease Maternal Grandfather Obesity Maternal Grandfather Diabetes Maternal Grandmother Heart disease Maternal Grandmother Obesity Maternal Grandmother Diabetes Mother Obesity Mother Diabetes Paternal Grandfather Heart disease Paternal Grandfather Obesity Paternal Grandfather Diabetes Paternal Grandmother Heart disease Paternal Grandmother Obesity Paternal Grandmother Relation Name Status Comments Father Alive Maternal Grandfather Maternal Grandmother Mother Alive Paternal Grandfather Paternal Grandmother Social History Tobacco Use Types Packs/Day Years Used Date Smoking Tobacco: Never Smokeless Tobacco: Never Alcohol Use Standard Drinks/Week Comments Yes 1 (1 standard drink = 0.6 oz pur e alcohol) Abuse Screen Answer Date Recorded Unsafe at Home or Work/School Not on file Feels Threatened by Someone? Not on file 11/2022 Does Anyone Keep You from Co ntacting Others or Doint Things Outside the Home? Not on file 01/23/2023 Physical Sign of Abuse Present Not on file 1 Housing Stability Answer Date Recorded Current Living Arrangements Not on file 11/2022 Potentially Unsafe Housing Conditions Not on tao e 01/23/2023 Family and Community Support Answer Gilberto e Recorded Help with Day-to-Day Activities Not on file 01/23/2023 Lonely or Isolated Not on file 01/23/2023 Employment Answer Date Recorded Do you want help finding or keeping work or a natacha b? Not on file 01/23/2023 Disabilities Answer Date Recorded Concentrating, Remembering, or Making Decisions Difficulty Not on file 01/23/2023 Doing Errands Independently Difficulty Not on fi le 01/23/2023 Education Answer Date Recorded Help with school or training? Not on file Preferred Language Not on file 01/23/2023 Comments No Sex and Gender Information Value Date Recorded Sex Assigned at Not on file Legal Sex Female 10:53 AM EDT Gender Identity Not on file Sexual Orientation Not on file Last Filed Vital Signs Vital Sign Reading Time Taken Comments Blood Pressure 130/90 09/29/2021 11:07 AM EDT Pulse 96 07/09/2019 9:23 AM EDT Temperature 36.6 C (97.8 F) 07/03/2020 3:02 PM EDT Respiratory Rate 12 12/06/2018 6:48 PM EDT Oxygen Saturation 98% 12/06/2018 6:48 PM EDT Inhaled Oxygen Concentration - - Weight 142 kg (312 lb) 09/29/2021 11:07 AM EDT Height 165.1 cm (5' 5 ) 09/29/2021 11:07 AM EDT Body Mass Index 51.92 09/29/2021 11:07 AM EDT Plan of Treatment Upcoming Encounters Date Type Department Care Team (Late st Contact Info) Description 01/07/2025 9:15 AM EDT Office Visit [facility] [address] [facility] [address] [place] [phone] Mely Diaz, MIXER WHIPPED TOPPING [address] [facility] [address] [place] [address] Health Maintenance Due Date Last Done Comments DIABETIC EYE EXAM 2003 DIABETIC FOOT EXAM 2003 URINE MICROALBUMIN-CREATININ E RATIO (uACR) 2003 Hepatitis B (1 of 3 - 19+ 3- dose series) 2012 Pneumococcal Vaccine 0-49 (1 of 2 - PCV) 2012 ANNUAL PHYSICAL 12/06/2018 HEPATITIS C SCREENING 12/06/2018 Annual Gynecologic Pelvic an d Breast Exam 09/30/2022 09/29/2021 PAP SMEAR 07/12/2023 07/11/2020, 06/25/2019 COVID-19 Vaccine (3 - 2024-2 6 season) 2024 07/09/2020, 06/11/2020 HEMOGLOBIN A1C 01/03/2025 07/03/2024, 12/0 06/2023, 01/10/2024, Additional history exists INFLUENZA VACCINE 01/16/2025 TDAP/TD VACCINES (2 - Td or Tdap) 08/30/2025 016 Procedures Procedure Name Priority Date/Time Associated Diagnosis Comments PAP IG, HPV-HR (P&[facility] LAB) Routine 07/11/2020 Women's annual routine gynecological examination from Last 3 Months or Most Recently Relevant to Health Maintenance Results * Pap IG, HPV-hr (07/11/2020) ThinPrep Vial Shasha Blair MD PATHOLOGY/CYTOLOGY ORDER PRAVIN Final Result [facility]
[address] [place] [address], [place] [phone] from Last 3 Months or Most Recently Relevant to Health Maintenance Insurance [facility] PPO Care Teams Aluminum Welder Relationship Specialty Start Date End Date Eric Freire MD [address] [place] [address] [place] [address] PCP - General Family Medicine 04/16/24
--- OUTSIDE RECORDS SUMMARY | 2024-12-28 09:32 | XMS_ITS | Clinical Summary ---
Author Organization [facility] Address [address] [place] [address] Care Team Providers Care Automobile Spring Repairer Name Role Phone Eric Freire MD [...] day. 3 Active Blood Glucose Monitoring Suppl (PhoneTellTouch Verio Flex System) w/Device kit USE DIRECTED FOR DIABETES 3 Active busPIRone (Buspar) 15 MG tablet Take 1 tablet (15 mg) by mouth. 3 Active ferrous sulfate 325 (65 Fe) MG EC tablet Take 1 tablet (325 mg) by mouth 1 (one) time each day. 3 Active Lancets (OneTouch Delica Plus [id number]) misc USE DIRECTED FOR DIABETES 3 Active [...] mellitus with other specified complication, unspecified whether rn long term care insulin use (CMS/HCC) Apply to effected area daily for 2 weeks 60 g 1 4 Active Additional Information Patient not taking.Reported on 07/03/2024 Continuous Blood Gluc Faculty Support Coordinator (FreeStyle Mariam 3 [place]) deviceIndication s:Type 2 diabetes mellitus with other specified complication, unspecified whether skilled nursing insulin use (CMS/HCC) 1 Device 4 (four) [...] mellitus with other specified complication, unspecified whether rn long term care insulin use (CMS/HCC) Take 2 tablets (1,000 [...] mellitus with other specified complication, unspecified whether skilled nursing insulin use ([facility]) Instructed to inject [...] 07/03/2024 4:02 PM EDT Plan of Treatment Upcoming Encounters Date Type Department Care Team (Late st Contact Info) Description 02/05/2025 10:40 AM EDT Office Visit [facility] [address] [facility], [facility] [place] [address] Rose Kraus, WELT STITCHER [address] [address] Health Maintenance Due Date Last Done Comments [facility]-HIV Screening 1993 [facility]-Hepatitis C Screening 1993 [facility]-/Child/Adol SDOH Screenings 1993 [facility]-IPV Vaccines (2 of 3 - 4-dose series) 07/25/1998 06/27/1998 Diabetes: Dental Exam 2003 [facility]-Varicella Vaccines (1 of 2 - 13+ 2-dose series) 2006 [facility]- SDOH Screenings 2011 [facility]-Adult SDOH Screenings 2011 [facility]-Hepatitis B Vaccines (1 of 3 - 19+ 3-dose series) 2012 [facility]-Pneumococcal Vaccine: Pediatrics (0 to 5 Years) and At-Risk Patients (6 to 49 Years) (1 of 2 - PCV) 2012 [facility]-Pap Smear 2014 HPV Vaccines (1 - 3-dose SCDM series) 2020 [id number] Vaccine (3 - Pfizer risk series) 08/06/2020 [...] mellitus with other specified complication, unspecified whether skilled nursing insulin use ([facility]) from Last 3 Months or Most Recently Relevant to Health Maintenance Results * POCT glycosylated hemoglobin (Hb A1C) (07/03/2024 4:21 PM EDT) POCT Hemoglobin A1C 7.9 <5.7% Non-Diabe tic % [employer] [facility] Kit Lot Number [id number] [facility] Kit Expiration Date 02/15/2026 HEALTHCARE [facility] Blood Venous blood specimen / Unknown 07/03/2024 4:21 PM EDT Rose Kraus WELT STITCHER POINT OF CARE TEST ENTER/JEFFREY T ORDERABLES Final Result Performing Organization Address City/State/[facility] Co de Phone Number [facility] [address] [place] [address] from Last 3 Months or Most Recently Relevant to Health Maintenance Insurance [employer] Care Teams Automobile Spring Repairer Relationship Specialty Start Date End Date Eric Freire MD PCP - General Family Medicine 01/27/23
--- OUTSIDE RECORDS SUMMARY | 2024-12-28 09:32 | XMS_ITS | Encounter Summary ---
Author Organization [facility] Address [address] [place] [address] Care Team Providers Care Package Car Driver Name Role Phone Eric Freire MD Primary Care Provider [phone]- [phone] Reason for Visit * Reason Comments Med Refill Encounter Details Date Type Department Care Team (Late st Contact Info) Description 01/27/2020 Refill [facility] CARDIOLOGY [address] [facility] [address] [place] [address] Zafar Lugo MD [address] [facility] [address] [place] [address] Med Refill Social History Tobacco Use Types Packs/Day Years Used Date Smoking Tobacco: Never Smokeless Tobacco: Never Alcohol Use Standard Drinks/Week Comments Yes 1 (1 standard drink = 0.6 oz pur e alcohol) Comments No Sex and Gender Information Value Date Recorded Sex Assigned at Not on file Legal Sex Female 10:53 AM EDT Gender Identity Not on file Sexual Orientation Not on file documented as of this encounter Plan of Treatment Upcoming Encounters Date Type Department Care Team (Late st Contact Info) Description 01/07/2025 9:15 AM EDT Office Visit [facility] OBGYN [address] [facility] [address] [place] [phone] Mely Diaz APRN [address] [facility] [address] [place] [address] documented as of this encounter Visit Diagnoses Not on filedocumented in this encounter Care Teams Package Car Driver Relationship Specialty Start Date End Date Eric Freire MD [address] [place] [address] PCP - General Family Medicine 04/16/24 documented as of this encounter
[2024-12-28 09:57] LABS: Hematocrit 41.5 % (37.0-47.0); Hemoglobin 13.5 g/dL (12.2-16.2); Immature Granulocytes % 0.5 %; Mean Corpuscular HGB Conc 32.5 g/dL (31.8-35.4); Mean Corpuscular Hemoglobin 24.9 pg (27.0-31.2); Mean Corpuscular Volume 76.4 fl (81-99); Nucleated Red Blood Cells % 0 %; Platelet Count 185 K/mm3 (142-424); Red Blood Count 5.43 M/mm3 (4.20-5.40); Red Cell Distribution Width-SD 39.0 fL; White Blood Count 8.6 K/mm3 (4.8-10.8)
[2024-12-28 10:22] LABS: Hemoglobin A1C 7.0 % (4.0-6.0)
[2024-12-28 10:24] LABS: Alanine Aminotransferase 40 U/L (12-78); Albumin Level 3.8 g/dl (3.5-5.0); Albumin/Globulin Ratio 1.9 (1.1-1.8); Alkaline Phosphatase 95 U/L (38-126); Anion Gap 10.1 mEq/L (5-15); Aspartate Amino Transferase 34 U/L (14-36); Bilirubin,Total 0.4 mg/dl (0.2-1.3); Blood Urea Nitrogen 8 mg/dl (7-17); Calcium 9.1 mg/dl (8.4-10.2); Carbon Dioxide 29 mmol/L (22.0-30.0); Chloride 104 mmol/L (98-107); Creatinine,Serum 0.50 mg/dl (0.52-1.04); Estimated Glomerular Filt Rate 144 ml/min (>60); GFR (African American) 174 ML/MIN (>60); Globulin 2.0 g/dL (1.3-3.2); Glucose 138 mg/dl (74-100); Potassium 4.1 mmoL/L (3.5-5.1); Sodium 139 mmol/L (136-145); Total Protein,Serum 5.8 g/dl (6.3-8.2)
[2024-12-28 10:39] LABS: Triiodothryronine (T3) Uptake 30 % (23.5-40.5)
[2024-12-28 10:40] LABS: Free Thyroxine Index 2.6 ug/dL (5.93-13.13); T4 (Thyroxine) 8.7 ug/dl (5.53-11.0)
[2024-12-28 10:42] LABS: 25-OH Vitamin D, Total 21.1 ng/mL (30-100)
[2024-12-28 10:44] LABS: Iron 41 ug/dL (37-170)
[2024-12-28 10:53] LABS: Total Iron Binding Capacity 305 ug/dL (265-497)
[2024-12-28 10:54] LABS: Thyroid Stimulating Hormone 3.35 uIU/mL (0.465-4.68)
[2024-12-28 11:14] LABS: Vitamin B12 346 pg/mL (239-931)
[2024-12-28 11:20] LABS: Ferritin 208 ng/ml (6.24-137)
[2024-12-28 11:33] LABS: Folate 6.52 ng/mL
== END 2024-12-28 23:59 | disposition home or self-care (01) ==
LOC: LAB 09:30
PROVIDERS: PCP Nurse Practitioner Family; Visit Provider Nurse Practitioner Family
DX: E03.9 Hypothyroidism, unspecified (principal); Z98.84 Bariatric surgery status; I10 Essential (primary) hypertension
CPT/HCPCS: 36415; 80053; 82306; 82525; 82607; 82728; 82746; 83036; 83540; 83550; 84425; 84436; 84443; 84446; 84479; 84590; 84630; 85025

== ENCOUNTER 2025-02-03 16:34 | Emergency (ER) | payer BC, SELFPAY ==
--- OUTSIDE RECORDS SUMMARY | 2024-12-28 13:00 | XMS_ITS | Encounter Summary ---
Author Organization [facility] ([place], [place], [place], [place]) Address [address] [place] [address] Care Team Providers Care Manager Warehouse Name Role Phone Eric Freire MD Primary Care Provider +- [phone] Aime Walker MD Unavailable [phone] Reason for Visit * Reason Comments Follow-up Immune thrombocytope hakeem purpura (HCC) Encounter Details Date Type Department Care Team (Latest Contact Info) Description 12/28/2024 1:00 PM EDT Office Visit [facility] [address] [place] [address] Aime Walker MD [address] [facility] [address] [place] [address] Immune thrombocytopenic purpura (HCC) Social History Tobacco Use Types Packs/Day Years Used Date Smoking Tobacco: Never Smokeless Tobacco: Never Tobacco Cessation:Counseling Given: Not Answered Alcohol Use Standard Drinks/Week Comments Never 0 (1 standard drink = 0.6 oz pur e alcohol) Family and Community Support Answer Gilberto e Recorded Help with Day to Day Activities Not on file 04/27/2023 Feeling Lonely or Isolated Not on file 04/27 Educational Attainment Answer Date Benito rded Speak language other than Sammarinese at home Not on file 04/27/2023 Want [...] 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 Not on file Not on file documented as of this encounter Last Filed Vital Signs Vital Sign Reading Time Taken Comments Blood Pressure 138/96 12/28/2024 12:53 PM EDT Pulse 85 12/28/2024 12:53 PM EDT Temperature 36.8 C (98.3 F) 12/28/2024 12:53 PM EDT Respiratory Rate 18 12/28/2024 12:53 PM EDT Oxygen Saturation 97% 12/28/2024 12:53 PM EDT Inhaled Oxygen Concentration - - Weight 128 kg (282 lb 1.6 oz) 12/28/2024 12:53 P M EDT Height 165.1 cm (5' 5 ) 12/28/2024 12:53 PM EDT Body Mass Index 46.94 12/28/2024 12:53 PM EDT documented in this encounter Progress Notes * Aime Walker MD - 12/28/2024 1:00 PM EDT Chief Complaint: History of Present Illness: Miracle Michael is a 29 y.o. female who presents today for follow up of autoimmune thrombocytopenia. She is on no therapy. She has had no bruising or petechiae. No epistaxis or other problems. She had bariatric surgery a year ago. Past Medical History: Diagnosis Date Depression History of ITP Hypertension Hypothyroidism Iron deficiency anemia Scoliosis Type 2 diabetes mellitus (HCC) Past Surgical History: Procedure Laterality Date ORIF FOREARM FRACTURE Allergies: Morphine and Rituxan [Rituximab] Medications: Current Outpatient Medications on File Prior to Visit Medication Sig Dispense Refill ARIPiprazole (ABILIFY) 20 MG tablet Take 0.5 tablets (10 mg total) by mouth 2 (two) times daily. busPIRone (BUSPAR) 15 MG tablet Take 1 tablet (15 mg total) by mouth 3 (three) times daily. ferrous sulfate 325 (65 FE) MG tablet Take 1 tablet (325 mg total) by mouth daily. hydrOXYzine pamoate (VISTARIL) 25 MG capsule TAKE 1 CAPSULE BY MOUTH TWICE A DAY NEEDED FOR ANXIETY Jardiance 25 mg tablet Take 1 tablet (25 mg total) by mouth daily EVERY DAY. ketoconazole (NIZORAL) 2 % cream APPLY TO EFFECTED AREA DAILY FOR 2 WEEKS levothyroxine (SYNTHROID, LEVOTHROID) 175 MCG tablet Take 1 tablet (175 mcg total) by mouth daily. NORETHINDRONE AC-ETH ESTRADIOL ORAL Take by mouth. (Patient not taking: Reported on 05/11/2024.) sertraline (ZOLOFT) 100 MG tablet Take 1.5 tablets (150 mg total) by mouth daily. [DISCONTINUED] albuterol 90 mcg/actuation inhaler INHALE 2 PUFFS EVERY 4 HOURS NEEDED FOR SHORTNESS OF BREATH OR WHEEZING [DISCONTINUED] amitriptyline (ELAVIL) 10 MG tablet TAKE 1 TABLET ORALLY THREE TIMES A DAY NEEDEDFOR NERVE PAIN [DISCONTINUED] amLODIPine (NORVASC) 5 MG tablet Take 1 tablet (5 mg total) by mouth daily. [DISCONTINUED] bisoprolol (ZEBETA) 5 MG tablet Take 1 tablet (5 mg total) by mouth daily. [DISCONTINUED] chlorhexidine (PERIDEX) 0.12 % solution RINSE FOR 30 SECONDS AND THE SPIT OUT IN THEMORNING AND EVENING AFTER BRUSHING TEETH [DISCONTINUED] insulin lispro (HumaLOG) 100 unit/mL injection Inject subcutaneously 3 (three) timesdaily before meals. (Patient not taking: Reported on 05/11/2024.) [DISCONTINUED] metFORMIN (GLUCOPHAGE) 500 MG tablet Take by mouth. (Patient not taking: Reported on05/11/2024.) [DISCONTINUED] NIFEdipine (ADALAT CC) 30 MG 24 hr tablet Take 1 tablet (30 mg total) by mouth daily. (Patient not taking: Reported on 05/11/2024.) [DISCONTINUED] semaglutide (OZEMPIC SUBQ) Inject subcutaneously. (Patient not taking: Reported on 05/11/2024.) [DISCONTINUED] sulfamethoxazole-trimethoprim (BACTRIM DS) 800-160 mg per tablet TAKE ONE TABLET BY MOUTH TWICE DAILY FOR 10 DAYS -- FINISH ALL MEDICINE -- [DISCONTINUED] valACYclovir (VALTREX) 1000 MG tablet TAKE ONE TABLET BY MOUTH THREE TIMES A DAY FOR7 DAYS No current facility-administered medications on file prior to visit. Review of Systems: Review of Systems All other systems reviewed and are negative. Vitals: Vitals: 12/28/24 1253 BP: (!) 138/96 Pulse: 85 Resp: 18 Temp: 98.3 ??F (36.8 ??C) SpO2: 97% Weight: 128 kg (282 lb 1.6 oz) Height: 1.651 m (5' 5 ) Physical Exam: Physical Exam Vitals reviewed. Constitutional: Appearance: Normal appearance. HENT: Head: Normocephalic and atraumatic. Mouth/Throat: Mouth: Mucous membranes are moist. Pharynx: Oropharynx is clear. Eyes: Extraocular Movements: Extraocular movements intact. Conjunctiva/sclera: Conjunctivae normal. Pupils: Pupils are equal, round, and reactive to light. Neck: Comments: No cervical supraclavicular axillary adenopathy Cardiovascular: Rate and Rhythm: Normal rate and regular rhythm. Pulses: Normal pulses. Heart sounds: Normal heart sounds. Pulmonary: Effort: Pulmonary effort is normal. Breath sounds: Normal breath sounds. Comments: No dullness to percussion in the lung bases Abdominal: General: Abdomen is flat. Palpations: Abdomen is soft. Comments: No organomegaly Musculoskeletal: General: Normal range of motion. Cervical back: Normal range of motion and neck supple. Comments: No areas of bone pain Neurological: General: No focal deficit present. Mental Status: She is alert. Mental status is at baseline. Comments: No deficits Relevant Results: No visits with results within 60 Day(s) from this visit. Latest known visit with results is: Office Visit on 05/11/2024 Component Date Value Ref Range Status WBC 05/11/2024 8.1 4.5 - 12.5 K/??L Final RBC 05/11/2024 5.74 (H) 4.00 - 5.25 M/??L Final Hemoglobin 05/11/2024 14.1 12.0 - 16.0 GM/DL Final Hematocrit 05/11/2024 44.2 36.0 - 46.0 % Final MCV 05/11/2024 77 (L) 80 - 100 fL Final MCH 05/11/2024 24.6 (L) 26.0 - 34.0 pg Final MCHC 05/11/2024 31.9 31.0 - 37.0 GM/DL Final RDW 05/11/2024 15.7 12.0 - 16.8 % Final Platelets 05/11/2024 136 (L) 140 - 440 K/CU MM Final MPV 05/11/2024 10.6 (H) 7.4 - 10.4 fL Final % Neutros 05/11/2024 75 45 - 80 % Final % Lymphs 05/11/2024 16 15 - 45 % Final % Monos 05/11/2024 7 0 - 10 % Final % Eos 05/11/2024 2 0 - 5 % Final % Baso 05/11/2024 1 0 - 3 % Final # Neutros 05/11/2024 6.05 2.00 - 8.80 K/??L Final # Lymphs 05/11/2024 1.32 0.70 - 5.50 K/??L Final # Monos 05/11/2024 0.58 0.00 - 1.70 K/??L Final # Eos 05/11/2024 0.14 0.00 - 0.80 K/??L Final # Baso 05/11/2024 0.04 0.00 - 0.20 K/??L Final No results found. Plan: Her platelet count is normal 185,000. She is always microcytic but her hemoglobin is normal. She has been doing great. I will see her in a year. There is nothing different I would do at this point. If she develops any bruising or other problems she can always call and we will see her sooner. Signed: Electronically signed by Aime Walker MD 12/28/24 1:39 PM EDT Eric Freire MD documented in this encounter Plan of Treatment Upcoming Encounters Date Type Department Care Team (Late st Contact Info) Description 12/27/2025 9:00 AM EDT Office Visit [facility] [place] [address] [place] [address] Aime Walker MD [address] [place] [address] Scheduled Orders Name Type Priority Associated Diagnoses Orde r Schedule CBC with automated diff Lab Routine Immune thrombocytopenic purpura (HCC) Expected: 12/27/2025, Expires: 03/27/2026 documented as of this encounter Visit Diagnoses Diagnosis Immune thrombocytopenic purpura (HCC) Immune thrombocytopenic purpura documented in this encounter Care Teams Manager Warehouse Relationship Specialty Start Date End Date Eric Freire MD [address] [facility] [address] [place] [address] PCP - General Family Medicine 06/08/23 Aime Walker MD [address] [facility] [address] [place] [address] Hematology and Oncology 12/28/24 documented as of this encounter
--- OUTSIDE RECORDS SUMMARY | 2025-01-07 09:15 | XMS_ITS | Encounter Summary ---
[facility] Address [address] [place] [address] Care Team Providers Care Poultry Scalder Name Role Phone Eric Freire MD Primary Care Provider +1- [phone] Reason for Referral * Diagnostic Imaging (Routine) - Authorized Specialty Diagnoses / Procedures Referred By Contact Referred To Contact Obstetrics and Gynecology Diagnoses PCOS (polycystic ovarian syndrome) Amenorrhea Procedures US Non-ob Transvaginal Mely Diaz APRN [address] [facility] [address] [place] [address] Phone: tel: fax: [facility] OBGYN [address] [facility] [address] [place] [address] Phone: tel: fax: Referral ID Status Reason Start Date Expiration Date V isits Requested Visits Authorized [id number] Authorized 01/07/2025 04/08/2026 1 1 Reason for Visit * Reason Comments Gynecologic Exam Encounter Details Date Type Department Care Team (Late st Contact Info) Description 01/07/2025 9:15 AM EDT Office Visit [facility] OBGYN [address] [facility] [address] [place] [address] Mely Diaz APRN [address] [facility] [address] [place], [place] [id number] Women's annual routine gynecological examination (Primary Dx); [...] * Preventive Care 21-39 Years Old Female (Turkmen) * Diet for Polycystic Ovary Syndrome (Turkmen) * Preparing for (Turkmen) * Thickening of the Uterus Lining (Endometrial Hyperplasia): What to Know (Turkmen) * Medroxyprogesterone Tablets (Turkmen) documented in this encounter Progress Notes * Mely Diaz, GLORIA - 01/07/2025 9:15 AM EDT Images [...] She is not dieting or exercising. Additional FRONT OFFICE ASSISTANT History contraceptive methods: None Desires to: do [...] , Rfl: cholecalciferol (VITAMIN D3) 1.25 MG (65248 UT) capsule, Take 1 capsule by mouth [...] ROS, and historical information as entered above. Mely Diaz, KNOBBER Objective BP 122/80 Wt 127 kg (280 lb) No BMI 46.59 kg/m?? Physical Exam Vitals and nursing note reviewed. Exam conducted with a washer operator present. Constitutional: General: She is not [...] total HCG, B-subunit, Quantitative US Non-ob Transvaginal CASSANDRA DEVELOPER annual well woman exam. Reviewed pap guidelines. [...] 24 days (around 01/31/2025) for anemorrhea, Ultrasound. Mely Diaz APRN 01/07/2025 documented in this encounter Plan of Treatment Upcoming Encounters Date Type Department Care Team (Late st Contact Info) Description 02/06/2025 8:00 AM EDT Ancillary Procedure [facility] OBGYN [address] [place] [address] 02/06/2025 8:30 AM EDT Office Visit [facility] OBGYN [address] [place] [address] Shasha Blair MD [address] [facility] [address] [place] [address] Scheduled Orders Name Type Priority Associated Diagnoses Orde r Schedule US Non-ob Transvaginal Imaging Routine PCOS (polycystic ovarian syndrome) Amenorrhea Expected: 01/31/2025 (Approximate), Expires: 01/07/2026 documented as of this encounter Procedures Procedure [...] Amenorrhea documented in this encounter Results * LIQUID-BASED PAP SMEAR WITH HPV GENOTYPING REGARDLESS OF INTERPRETATION (JAYDEN,COR,MAD) (01/07/2025 1:59 PM EDT) Reference Lab Report FINAL CASSANDRA DEVELOPER CYTOLOGY REPORT ---- DIAGNOSIS: Negative for intraepithelial [...] results can occur. ThinPrep Pap imagined by V[employer]ible (AI assisted system). Screened by ELISA HOGAN [...] PM EDT 01/07/2025 1:59 PM EDT us Mely Diaz KNOBBER PATHOLOGY/CYTOLOGY ORDERAB LES Final Result [facility]
[address] [place] [address], * HCG, B-subunit, Quantitative (01/07/2025 9:53 AM [...] - 01/08/2025 3:35 AM EDT Performed at: [address] [place] [id number] French Pastry Cook: Hieu Go MD, Phone: [phone] Mely Diaz KNOBBER LAB BLOOD ORDERABLES Final Result Performing Organization Address City/[facility]/ZIP Co de Phone Number [facility] ([facility]) [address] [place] [address], [facility] [address] [place] [address], * Testosterone - total (01/07/2025 9:53 AM EDT) Pathologist [facility] Testosterone, Total 14 8 - 60 ng/dL [facility] Blood 01/07/2025 9:53 AM EDT 01/07/2025 Narrative [facility]) - 01/08/2025 4:36 PM EDT Performed at: [address] [place] [id number] French Pastry Cook: Nazario Ortiz PhD, Phone: [phone] Mely Diaz KNOBBER LAB BLOOD ORDERABLES Final Result [facility] (AMBULATORY) [address] [place] [address], [facility] [address] [place] [address], * FSH & LH (01/07/2025 9:53 AM [...] 01/08/2025 4:36 PM EDT Performed at: - [address] [id number] French Pastry Cook: Nazario Ortiz PhD, Phone: [phone] Mely Diaz KNOBBER LAB BLOOD ORDERABLES Final Result Performing Organization Address [facility]/ZIP Co de Phone Number [facility] ([facility]) [address] [place] [address], [facility] [address] [place] [address], * Estradiol (01/07/2025 9:53 AM EDT) [facility] Estradiol 25.3 pg/mL [facility] Comment: Adult Female Range Follicular phase 12.5 - 166.0 Ovulation phase 85.8 - 498.0 Luteal phase 43.8 - 211.0 Postmenopausal <6.0 - 54.7 1st trimester 215.0 - >4300.0 Edmund ECLIA methodology Blood 01/07/2025 9:53 AM EDT 01/07/2025 Narrative [facility] ([facility]) - 01/08/2025 4:36 PM EDT Performed at: [facility] [address] [place], [place] [id number] French Pastry Cook: Nazario Ortiz PhD, Phone: [phone] Mely Diaz KNOBBER LAB BLOOD ORDERABLES Final Result Performing Organization Address City/[facility]/ZIP Co de Phone Number [facility] (AMBULATORY) [address] [place] [address], [place] [phone] [facility] [address] [place] [address], documented in this encounter Visit Diagnoses Diagnosis Women's annual routine gynecological examination- Primary Pap test, as part of routine gynecological examination Screening for malignant neoplasm of the cervix PCOS (polycystic ovarian syndrome) Polycystic ovaries Amenorrhea Absence of menstruation documented in this encounter Care Teams Poultry Scalder Relationship Specialty Start Date End Date Eric Freire MD [address] [place] [address] [place] [address] PCP - General Family Medicine 04/16/24 documented as of this encounter
[2025-02-03 16:38] VITALS: BP 143/106; PULSE 90; RESP 18; TEMP 36.6; O2SAT 99; BMI 45.4
--- NOTE | 2025-02-03 16:43 | HMH.EDGENADL ---
Discharge Plan Disposition Chief Complaint: Abdominal Pain Prescriptions Prescriptions: No Action sertraline 100 mg tablet 150 mg PO DAILY buspirone 15 mg tablet 15 mg PO BID ferrous sulfate 325 mg (65 mg iron) tablet 325 mg PO DAILY 90 Days Qty: 90 3RF bisoprolol fumarate 5 mg tablet 5 mg PO DAILY 90 Days Qty: 90 0RF levothyroxine 175 mcg tablet 175 mcg PO DAILY 90 Days Qty: 90 0RF cholecalciferol (vitamin D3) 1,250 mcg (50,000 unit) capsule 1,250 mcg PO WEEKLY Qty: 5 2RF amlodipine 5 mg tablet 5 mg PO DAILY Qty: 90 0RF Jardiance 25 mg tablet 25 mg PO DAILY Qty: 30 2RF aripiprazole [Abilify] 15 mg tablet 15 mg PO HS Referrals Follow up/Referrals: Provider,Referral, MD [Primary Care Provider, Medical] - See instructions Instructions Patient Instructions: DI for Acute Abdominal Pain Print Language Print Language: Estonian Discharge ED Provider: Shawn Walton Adult [facility] General Chief complaint: Abdominal Pain Stated complaint: abdominal pain,vomiting Time Seen by Provider: 02/03/25 16:43 Mode of Arrival: Ambulatory Source of Information: Patient Description of Symptoms (Recalled from ER Triage Doc. by RN): Pt presents for evaluation of mid abd pain, vomiting, and diarrhea for 3 days. Pt states she has a hx of gastric bypass. Related Data Home Medications ?Medication ?Instructions ?Recorded ?Confirmed buspirone 15 mg tablet 15 mg PO BID 11/16/21 12/28/24 sertraline 100 mg tablet 150 mg PO DAILY Depression 08/17/22 12/28/24 aripiprazole 15 mg tablet (Abilify) 15 mg PO HS 10/07/24 12/28/24 Previous Rx's ?Medication ?Instructions ?Recorded ferrous sulfate 325 mg (65 mg 325 mg PO DAILY Supplement 90 days 06/08/23 iron) tablet #90 tabs bisoprolol fumarate 5 mg tablet 5 mg PO DAILY HTN 90 days #90 tabs 12/23/23 levothyroxine 175 mcg tablet 175 mcg PO DAILY 90 days #90 tabs 04/25/24 cholecalciferol (vitamin D3) 1,250 1,250 mcg PO WEEKLY #5 caps 09/04/ mcg (50,000 unit) capsule amlodipine 5 mg tablet 5 mg PO DAILY #90 tabs 11/26/24 empagliflozin 25 mg tablet 25 mg PO DAILY #30 tabs 01/28/25 (Jardiance) Allergies Allergy/AdvReac Type Severity Reaction Status Date / Time morphine Allergy Intermediate I-HIVES Verified 12/28/24 08: rituximab (From Rituxan) Allergy Unknown Verified 12/28/24 08: allergy reaction PFSH [facility] Disclaimer: The information contained in this section may have been updated after the patient was seen, as this information can be updated by other users. Medical History Need for tuberculosis vaccination Hypothyroidism (07/29/23) Sleep apnea (07/29/23) Type 2 diabetes mellitus (07/29/23) Essential hypertension (07/29/23) Morbid obesity (07/29/23) Acute ITP Diabetes Pre-op testing Abnormal ECG Chest pain Sleep apnea with use of continuous positive airway pressure (CPAP) Chronic ITP (idiopathic thrombocytopenic purpura) Depression with anxiety PCOS (polycystic ovarian syndrome) Prediabetes Hypothyroid Hypertension Continue current treatment. 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 Vital Signs: 02/03/25 16:38 Temperature 98 F Temperature Source Oral Pulse Rate [Right] 90 Respiratory Rate 18 Blood Pressure [Right Arm] 143/106 H Blood Pressure Mean [Right Arm] 118 Blood Pressure Source [Right Arm] Automatic Cuff Blood Pressure Position [Right Arm] Sitting 02 Sat by Pulse Oximetry 99 Oxygen Delivery Method Room Air Orders (Tests/Meds): ORDERS Category Date Time Status Urinalysis and Microscopic Stat Lab 02/03/25 16:42 Ordered
[2025-02-03 16:51] LABS: Microscopic, Urine URINE MICROSCOPIC (MICROSCOPIC)
--- OUTSIDE RECORDS SUMMARY | 2025-02-03 16:51 | XMS_ITS | Clinical Summary ---
Author Organization [facility] Address [address] [place] [id number] Care Team Providers Care Visitor Services Assistant Name Role Phone Eric Freire MD Primary Care Provider +1- [phone] Allergies Active Allergy Reactions Criticality Noted Date Comments Morphine Hives Medium 12/06/2018 Rituximab Anaphylaxis High 01/12/2021 Pt states my throat closes, I get a fever. Medications ferrous sulfate 325 (65 FE) MG tablet Take 1 tablet by mouth Daily. 0 11/08/19 19 Active SYNTHROID 175 MCG tablet Take 1 tablet by mouth Daily. 3 11/30/19 19 Active bisoprolol (ZEBeta) 5 MG tablet TAKE 1 TABLET BY MOUTH DAILY. PLEASE CONTACT OFFICE FOR APPT. 90 tablet 1 02/17/20 21 Active ARIPiprazole (ABILIFY) 15 MG tablet Take 0.5 tablets by mouth 2 (Two) Times a Day. 09/01/19 22 Active busPIRone (BUSPAR) 15 MG tablet Take 1 tablet by mouth 3 (Three) Times a Day. 08/25/19 22 Active sertraline (ZOLOFT) 50 MG tablet TAKE 1/2 ORAL TAB DAILY X 1 WEEK AND THEN INCREASE TO 1 ORAL TAB DAILY 09/17/19 22 Active amLODIPine (NORVASC) 5 MG tablet TAKE 1 TABLET (5 MG) BY MOUTH DAILY Active cholecalciferol (VITAMIN D3) 1.25 MG (21289 UT) capsule Take 1 capsule by mouth Every 7 (Seven) Days. Active Jardiance 25 MG tablet tablet Take 1 tablet by mouth Daily. Active NIFEdipine XL (PROCARDIA XL) 30 MG 24 hr tablet Take 1 tablet by mouth Daily. Needs appt or defer to Primary Care Provider. 30 tablet 04/12/20 21 025 Discontinued(*T herapy completed) norethindrone (MICRONOR) 0.35 MG tabletIndication s:PCOS (polycystic ovarian syndrome),Encoun ter for surveillance of contraceptive pills Take 1 tablet by mouth Daily. 84 tablet 4 09/30/19 22 025 Discontinued medroxyPROGESTER one (Provera) 10 MG tabletIndication s:PCOS (polycystic ovarian syndrome),Amenor el Take 1 tablet by mouth Daily for 10 days. 10 tablet 01/08/20 25 025 Active Problems Problem Noted Date Diagnosed Date Encounter for surveillance of contraceptive pill s 07/03/2020 Overview (01/07/2025): Continue Micronor for now. 01/07/2025- No longer taking. TTC. PCOS (polycystic ovarian syndrome) 07/02/2020 Overview (01/07/2025): Diagnosed with oligomenorrhea, and elevated testosterone. Treated [...] sperm. Will discuss further at next visit. Type 2 diabetes mellitus 07/02/2020 Hypertension 07/02/2020 [...] pounds down in the past 5 months. Encounters Date Type Department Care Team Description 01/08/2025 Results Follow-Up [facility] OBGYN [address] [facility] [address] [place] [address] Mely Diaz APRN 01/07/2025 9:15 AM EDT Office Visit [facility] OBGYN [address] [facility] [address] [place] [address] Mely Diaz, HOUSEKEEPER/CUSTODIAN/LAUNDRY WORKER Women's annual routine gynecological examination (Primary Dx); Pap test, as part of routine gynecological examination; PCOS (polycystic ovarian syndrome); Amenorrhea 01/07/2025 Travel from Last 3 Months Family History Medical History Relation Name Comments [...] Pressure 122/80 01/07/2025 9:07 AM EDT Pulse 96 07/09/2019 9:23 AM EDT Temperature 36.6 C (97.8 F) 07/03/2020 3:02 PM EDT Respiratory Rate 12 12/06/2018 6:48 PM EDT Oxygen Saturation 98% 12/06/2018 6:48 PM EDT Inhaled Oxygen Concentration - - Weight 127 kg (280 lb) 01/07/2025 9:07 AM EDT Height 165.1 cm (5' 5 ) 09/29/2021 11:07 AM EDT Body Mass Index 46.59 09/29/2021 11:07 AM EDT Plan of Treatment Upcoming Encounters Date Type Department Care Team (Late st Contact Info) Description 02/06/2025 8:00 AM EDT Ancillary Procedure [facility] OBGYN [address] [address] 02/06/2025 8:30 AM EDT Office Visit [facility] OBGYN [address] [address] Shasha Blair MD [address] [address] Health Maintenance Due Date Last Done Comments DIABETIC EYE EXAM 2003 DIABETIC FOOT EXAM 2003 URINE MICROALBUMIN-CREATININ E RATIO (uACR) 2003 Hepatitis B (1 of 3 - 19+ 3- dose series) 2012 Pneumococcal Vaccine 0-49 (1 of 2 - PCV) 2012 ANNUAL PHYSICAL 12/06/2018 HEPATITIS C SCREENING 12/06/2018 INFLUENZA VACCINE 11/16/2024 HEMOGLOBIN A1C 01/03/2025 07/03/2024, 06/16, 03/20/2024, Additional history exists TDAP/TD VACCINES (2 - Td or Tdap) 08/30/2025 016 Annual Gynecologic Pelvic an d Breast Exam 01/08/2026 01/07/2025 PAP SMEAR 01/08/2028 01/07/2025, 06/17, 06/25/2019 Procedures Procedure Name Priority Date/Time Associated Diagnosis Comments LIQUID-BASED PAP SMEAR WITH HPV GENOTYPING REGARDLESS OF INTERPRETATION, [facility] (JAYDEN,COR,MAD) Routine 01/07/2025 1:59 PM EDT Women's annual routine gynecological examination Pap test, as part of routine gynecological examination HCG, B-SUBUNIT, QUANTITATIVE Routine 01/07/2025 9:53 AM EDT Amenorrhea TESTOSTERONE Routine 01/07/2025 9:53 AM EDT Amenorrhea FSH AND LH Routine 01/07/2025 9:53 AM EDT Amenorrhea ESTRADIOL Routine 01/07/2025 9:53 AM EDT Amenorrhea from Last 3 Months Results * LIQUID-BASED PAP SMEAR WITH HPV GENOTYPING REGARDLESS OF INTERPRETATION (JAYDEN,COR,MAD) (01/07/2025 1:59 PM EDT) Reference Lab Report FINAL TIN PLATER CYTOLOGY REPORT ---- DIAGNOSIS: Negative for intraepithelial [...] results can occur. ThinPrep Pap imagined by [employer] (AI assisted system). Screened by ELISA HOGAN [...] 01/07/2025 1:59 PM EDT us Mely Diaz HOUSEKEEPER/CUSTODIAN/LAUNDRY WORKER PATHOLOGY/CYTOLOGY ORDERAB LES Final Result [facility]
[address] [place] [address], [place] [phone] * FSH & LH (01/07/2025 9:53 AM [...] 01/08/2025 4:36 PM EDT Performed at: - [address] [id number] Arabic Teacher: Nazario Ortiz PhD, Phone: [phone] us Mely Diaz HOUSEKEEPER/CUSTODIAN/LAUNDRY WORKER LAB BLOOD ORDERABLES Final Result [facility] ([facility]) [address] [place] [id number], [place] [phone] [facility] [address] [place] [address], [place] [phone] * HCG, B-subunit, Quantitative (01/07/2025 9:53 AM EDT) Pathologist [facility] HCG Quantitative <1.00 mIU/mL [facility] Comment: [...] - 01/08/2025 3:35 AM EDT Performed at: [address] [place] [id number] Arabic Teacher: Hieu Go MD, Phone: [phone] Mely Diaz HOUSEKEEPER/CUSTODIAN/LAUNDRY WORKER LAB BLOOD ORDERABLES Final Result Performing Organization Address City/State/[facility] Co de Phone Number [facility] [facility] ([facility]BULATORY) [address] [place] [address], [facility] [address] [place] [address], * Estradiol (01/07/2025 9:53 AM EDT) Pathologist [facility] Estradiol 25.3 pg/mL [facility] Comment: Adult Female Range Follicular phase 12.5 - 166.0 Ovulation phase 85.8 - 498.0 Luteal phase 43.8 - 211.0 Postmenopausal <6.0 - 54.7 1st trimester 215.0 - >4300.0 Edmund ECLIA methodology Blood 01/07/2025 9:53 AM EDT 01/07/[address] [facility] (AMBULATORY) - 01/08/2025 4:36 PM EDT Performed at: [address] [place] [address] [address] [place], [place] [id number] Arabic Teacher: Nazario Ortiz PhD, Phone: [phone] Mely Diaz APRN LAB BLOOD ORDERABLES Final Result Performing Organization Address City/[facility]/ZIP Co de Phone Number [facility] [address] [place] [address], [place] [phone] [facility] [address] [place] [address], [place] [phone] * Testosterone - total (01/07/2025 9:53 AM EDT) [facility] Testosterone, Total 14 8 - 60 ng/dL [facility] Blood 01/07/2025 9:53 AM EDT 01/07/[address] [facility] (AMBULATORY) - 01/08/2025 4:36 PM EDT Performed at: [address] [place] [address] [place] [id number] Arabic Teacher: Nazario Ortiz PhD, Phone: [phone] Mely Diaz APRN LAB BLOOD ORDERABLES Final Result Performing Organization Address City/[facility]/ZIP Co de Phone Number [facility] [address] [place] [address], [place] [phone] [facility] [address] [place] [address], [place] [phone] from Last 3 Months Insurance [facility] [employer] [employer] PPO Care Teams Visitor Services Assistant Relationship Specialty Start Date End Date Eric Freire MD [address] [place] [address] [place] [address] PCP - General Family Medicine 04/16/24
--- OUTSIDE RECORDS SUMMARY | 2025-02-03 16:51 | XMS_ITS | Encounter Summary ---
[facility] Address [address] [place] [address] Care Team Providers Care Obstetrician And Gynaecologist Name Role Phone Eric Freire MD Primary Care Provider +1- [phone] Encounter Details Date Type Department Care Team (Late Contact Info) Description 01/08/2025 Results Follow-Up [facility] OBGYN [address] [facility] [address] [place] [address] Mely Diaz, JIG BORING MACHINE OPERATOR FOR METAL [address] [facility] [address] [place] [id number] Social History Tobacco Use Types Packs/Day Years [...] 8:00 AM EDT Ancillary Procedure [facility] OBGYN [address] [facility] [address] [place] [address] 02/06/2025 8:30 AM EDT Office Visit [facility] OBGYN [address] [facility] [address] [place] [address] Shasha Blair MD [address] [facility] [address] [place] [address] documented as of this encounter Visit Diagnoses Not on filedocumented in this encounter Care Teams Obstetrician And Gynaecologist Relationship Specialty Start Date End Date Eric Freire MD [address] [place] [address] PCP - General Family Medicine 04/16/24 documented as of this encounter
--- OUTSIDE RECORDS SUMMARY | 2025-02-03 16:51 | XMS_ITS | Clinical Summary ---
Author Organization [facility] Address [address] [place] [address] Care Team Providers Care Turner Splitter Machine Operator Name Role Phone Eric Freire MD Primary [...] day. 3 Active Blood Glucose Monitoring Suppl (OLSETTouch Verio Flex System) w/Device kit USE DIRECTED FOR DIABETES 3 Active busPIRone (Buspar) 15 MG tablet Take 1 tablet (15 mg) by mouth. 3 Active ferrous sulfate 325 (65 Fe) MG EC tablet Take 1 tablet (325 mg) by mouth 1 (one) time each day. 3 Active Lancets (OneTouch Delica Plus [id number]) misc USE DIRECTED FOR DIABETES 3 Active [...] mellitus with other specified complication, unspecified whether usp insulin use Apply to effected area daily for 2 weeks 60 g 1 4 Active Additional Information Patient not taking.Reported on 07/03/2024 Continuous Blood Gluc Hand Paint Mixer (FreeStyle Mariam 3 [place]) deviceIndication s:Type 2 diabetes mellitus with other specified complication, unspecified whether meterman insulin use 1 Device 4 (four) times a day [...] mellitus with other specified complication, unspecified whether meterman insulin use Take 2 tablets (1,000 mg) by mouth 2 (two) times a day. Do not crush, chew, or split. 360 tablet 3 4 Active Additional Information Patient not taking.Reported [...] mellitus with other specified complication, unspecified whether meterman insulin use Instructed to inject 10 units before breakfast [...] 02/05/2025 10:40 AM EDT Office Visit [facility] [address] [facility], [place] [address] Rose Kraus, SOFTWARE SUPPORT SPECIALIST [address] [address] Health Maintenance Due Date Last [...] Vaccines (1 - 3-dose SCDM series) 2020 [id number] Vaccine (3 - Pfizer risk series) 08/06/2020 [...] mellitus with other specified complication, unspecified whether meterman insulin use ([facility]) from Last 3 Months or Most Recently Relevant to Health Maintenance Results * POCT glycosylated hemoglobin (Hb A1C) (07/03/2024 4:21 PM EDT) POCT Hemoglobin A1C 7.9 <5.7% Non-Diabe tic % [employer] [facility] Kit Lot Number [id number] [facility] Kit Expiration Date 02/15/2026 [employer] [facility] Blood Venous blood specimen / Unknown 07/03/2024 4:21 PM EDT Rose Chuy Kraus SOFTWARE SUPPORT SPECIALIST POINT OF CARE TEST ENTER/JEFFREY T ORDERABLES Final Result [facility] [address] [place] [address] from Last 3 Months or Most Recently Relevant to Health Maintenance Insurance ANTHEM Care Teams Turner Splitter Machine Operator Relationship Specialty Start Date End Date Eric Freire MD PCP - General Family Medicine 01/27/23
--- OUTSIDE RECORDS SUMMARY | 2025-02-03 16:51 | XMS_ITS | Continuity of Care Document ---
Author Organization [facility] Adv Surgery, [facility] Surgery Address [address] [address] [address] [place] [address] Care Team Providers Care Prosthetic Makeup Designer Name Role Phone TAHIR CABALLERO Primary Care Provider [phone] MADHURI COATS Environmental Inspector Assessment No assessment recorded. Plan of Treatment Reminders Order Date Submit Date Provider Last Modified By Organization Details Last Modified Time Details Appointments Video - Bariatric F/U 2024 12:30P M MIMI ALVAREZ NP Not available Not available Not available Lab None recorded. Referral None recorded. Procedures None recorded. Surgeries None recorded. Imaging None recorded. Medication Orders None recorded. Patient TargetsNo targets recorded. Patient Instructions Encounter Date Encounter Id Patient Instructions Last Modified By Organization Details Last Modified Time 01/15/2025 [id number] When You Want to Lose Weight: Care Instructions [email or web address] Not available 01/15/2025 15:00:11 Reason for Referral None Reported. Results Created Date Observation Date Name Description Value Unit Range Abnormal Flag Note LastModifiedBy Organization Detail LastModifiedTime Result Notes None recorded. Problems Name Problem SNOMED Code Status Onset Date Resolution Date Notes Provider Name and Address Organization Details Recorded Time Primary ITP (immune thrombocyto penia) 732974997 Active 2023 Irene harris [facility] Adv Surgery 4 16:35:27 Morbid obesity 697393337 Active 2023 Irene harris [facility] 4 17:16:15 Type 2 diabetes mellitus 17786418 Active 2023 Irene harris [facility] 4 17:18:17 Essential hypertensio n 54913352 Active 2023 Irene harris, [facility] 4 17:18:28 Hypothyroid ism 66300223 Active 2023 Irene harris, [facility] 4 17:25:14 Sleep apnea 93680943 Active 2023 Irene harris, [facility] 4 17:25:31 Abdominal pain 82365741 Active 2024 Mabel Vanegas [facility] Adv Surgery 5 11:50:27 History of bariatric surgical procedure 438118412 Active 2024 LUCITA ORNELAS MD [address], [place], [address], [facility] Adv Surgery 5 14:48:31 Problem Notes None recorded. Procedures Surgical History Date Name Laterality Status Provider Name and Address Organization Details Recorded Time 5 Telehealth completed [facility] Adv Surgery 09/25/2024 11:09:21 5 Telehealth completed [facility] Surgery 06/18/2024 11:41:07 4 Telehealth completed [facility] [address], [place], [address], [facility] Surgery 02/10/2024 11:37:12 4 [facility] 01/12/2024 21:10:13 4 Telehealth completed Angela [address], [place], [address], [facility] Surgery 11/17/2023 17:17:48 4 Telehealth completed Angela [address], [place], [address], [facility] Surgery 08/22/2023 11:08:39 6 Other completed Angela [address], [place], [address], [place] [facility] Adv Surgery 11/17/2023 17:25:08 8 Back Surgery completed Irene Rosales [facility] 07/29/2023 16:29:55 bypass of stomach completed Adenike Mark [facility] 01/15/2025 13:55:59 Imaging Results None recorded. Procedure Notes None recorded. Medical Equipment None Reported. Allergies Allergen ID Allergen Name Allergen Category Reaction Reaction Severity Criticality Documentation Date Start Date Code Code System Note Provider Name and Address Organization Details Recorded Time 62590 morphine medicatio n Not available Not available Not available 07/29/2023 7052 RxNorm Irene harris [facility] 16:29:11 57747 rituximab medicatio n Not available Not available Not available 07/29/2023 88896 1 RxNorm Irene Bobby harris [facility] 16:29:11 Medications Name Sig Start Date Stop Date Status Note LastModified by Organization Details LastModified Time medroxyprog esterone 10 mg tablet TAKE 1 TABLET BY MOUTH EVERY DAY FOR 10 DAYS active Not Available Not Available No t Available levothyroxi ne 175 mcg tablet TAKE 1 TABLET (175 MCG) BY MOUTH ONCE DAILY FOR 90 DAYS active Not Available Not Available No t Available doxycycline hyclate 100 mg capsule TAKE 1 CAPSULE BY MOUTH TWICE A DAY FOR 10 DAYS 07/28 completed Not Available Not Available Not Available clindamycin HCl 300 mg capsule TAKE 1 CAPSULE BY MOUTH THREE TIMES A DAY FOR 10 DAYS 01/15 completed Not Available Not Available Not Available [...] THREE TIMES A DAY FOR 7 DAYS 01/15 completed Not Available Not Available Not Available sertraline 100 mg tablet TAKE 1.5 TABLETS BY MOUTH ONCE A DAY 01/15 completed Not Available Not Available Not Available bisoprolol 5 mg-hydrochl orothiazide 6.25 mg tablet 11/16 completed Not Available Not Available Not Available nifedipine ER 30 mg tablet,exte nded release TAKE ONE TABLET BY MOUTH DAILY 05/17 completed Not Available Not Available Not Available amlodipine 5 mg tablet TAKE 1 TABLET (5 MG) BY MOUTH DAILY active Not Available Not Available No t Available sulfamethox azole 800 mg-trimetho prim 160 mg tablet TAKE ONE TABLET BY MOUTH TWICE DAILY FOR 10 DAYS -- FINISH ALL MEDICINE -- 01/15 completed Not Available Not Available Not Available bisoprolol fumarate 5 mg tablet TAKE [...] TIMES A DAY NEEDED FOR NERVE PAIN 01/15 completed Not Available Not Available Not Available ferrous sulfate 325 mg (65 mg iron) tablet TAKE ONE TABLET BY MOUTH DAILY FOR SUPPLEMEN T FOR 90 DAYS 01/15 completed Not Available Not Available Not Available omeprazole 20 mg capsule,del ayed release 01/15 completed Not Available Not Available Not Available prednisone [...] NEEDED FOR SHORTNESS OF BREATH OR WHEEZING 01/15 completed Not Available Not Available Not Available ferrous sulfate 325 mg (65 mg [...] MEALS. DO NOT CRUSH, CHEW, OR SPLIT. 12/27 completed Not Available Not Available Not Available buspirone 15 mg tablet TAKE 1 TABLET BY MOUTH TWICE A DAY active Not Available Not Available No t Available hydroxyzine pamoate 25 mg capsule TAKE 1 CAPSULE BY MOUTH TWICE A DAY NEEDED FOR ANXIETY 01/15 completed Not Available Not Available Not Available enoxaparin 40 mg/0.4 mL subcutaneou s [...] Available Not Available Not Available aripiprazol e 10 mg tablet Take 1 tablet every day by oral route. active Not Available Not Available No t Available aripiprazol e 15 mg tablet TAKE 1 TABLET BY MOUTH EVERYDAY AT BEDTIME 01/15 completed Not Available Not Available Not Available aripiprazol e 20 mg tablet TAKE 1 TABLET BY MOUTH EVERYDAY AT BEDTIME 01/15 completed Not Available Not Available Not Available chlorhexidi ne gluconate 0.12 % mouthwash [...] Not Available Not Available No t Available Jardiance 10 mg tablet TAKE ONE TABLET BY MOUTH EVERY DAY 01/15 completed Not Available Not Available Not Available Jardiance 25 mg tablet TAKE 1 TABLET BY MOUTH EVERY DAY active Not Available Not Available No t Available BD Ultra-Fine Micro Pen Needle 32 gauge x /4 USE EVERY DAY 03/09 completed Not Available Not Available Not Available BD Veo Insulin Syringe Ultra-Fine 1 mL 31 gauge x 15/64 03/09 completed Not Available Not Available Not Available Ozempic 1 mg/dose (4 mg/3 mL) subcutaneou s pen injector INJECT 1 MG (0.75 ML) SUBCUTANE OUSLY WEEKLY 07/28 completed Not Available Not Available Not Available sertraline 150 mg capsule Take 1 capsule every day by oral route. active Not Available Not Available No t Available FreeStyle Mariam 3 Sensor device CHANGE SENSOR EVERY 14 DAYS 01/15 completed Not Available Not Available Not Available Ozempic 0.25 mg or 0.5 mg (2 mg/3 mL) subcutaneou s pen injector INJECT 0.25 MG SUBCUTANE OUSLY WEEKLY 07/28 completed Not Available Not Available Not Available Vitals Date Recorded Body height Body mass index (BMI) Body weight Provider Name and Address Organization Details Last Updated DateTime 01/15/2025 165.1 cm 45.8 kg/m2 686185.9 g [facility] 01/15/2025 13:47:58 Social History Question Answer Notes LastModified by Organizat ion Details LastModified Time Tobacco Smoking Status Never Smoker Irene harris [facility] of Adv Surgery 07/29/2023 16:29:49 Is Blood Transfusion Acceptable In An Emergency? Yes Information not available 07/29/2023 How Many Children Do You Have? 0 Information not available 07/29/2023 Have You Ever Been Counseled For Unhealthy Alcohol Use? No [email or web address] Information not available 01/15/2025 What Is Your Relationship Status? Information not available 07/29/2023 Sex: Unknown Functional Status Question Answer Note LastModified by Organizat ion Details LastModified Time Do you use any illicit or recreational drugs? No [email or web address] Information not available 01/15/2025 What is your level of alcohol consumption? None [email or web address] Information not available 01/15/2025 Are you currently employed? No Information not available 07/29/2023 Are you able to care for yourself independently? Yes Information not available 07/29/2023 Do you [...] available 2023 16:29:19 Paternal Grandfather Alzheimer's disease Not available 2024 14:33:10 Medical History Condition Response Thyroid Disease Y Bleeding Disorders Y Depression Y Anemia Y Anxiety Disorder Y Diabetes Y Morbid Obesity Y Sleep Apnea Y Hypertension Y Gynecological HistoryNo gynecological history recorded. Obstetrics History GPAL:G 0 P 0 0 0 0 Past Encounters Encounter ID Performer Location Encounter Start Date Encounter Closed Date Diagnosis/Indication Diagnosis SNOMED-CT Code Diagnosis ICD10 Code Diagnosis IMO Codes Diagnosis Note [id number] Jeanna Faust MD [facility] [address] [facility] [address] [place] [address] 12/27/2024 14:32:48 12/29/2024 03:48:02 History of bariatric surgical procedure 288525942 Z98.84 039953 Patient has good progress and reports no major issues. Patient will see us again in 2 months for the ~1 year follow-up. Reassured that if any questions or concerns arise to contact the office. She is motivated to get a gym membership to increase her exercising and strength training. She is also going to improve on her water intake. [id number] Jeanna Faust MD [facility] for [facility] Surgery [address] [place] [address] 01/15/2025 13:28:51 01/16/2025 12:44:00 Morbid obesity 843382035 E66.01 Excellent progress 1 year after gastric sleeve. Patient started losing slower. However she lost around 15 BMI points. I talked to her about the need to continue portion control even if she is able to eat more. I gave her different strategies . I also emphasized the need to go 450 minutes/we ek for exercise.S he reports increasing hunger and more ability to eat. She still does not tolerate carbonated beverages which I find is a good sign. I talked to her about stretching her sleeve concept. I will have her follow-up next time in 3 months with our nurse practition er to establish contact as I may consider in the next year to start her on GLP-1 to curb her appetite. The fact that she started BMI is 60 makes it more likely that she may need adjuvant therapy with medication . I do not believe this is the right time yet as she continues to lose weight and can exercise more. Health Concerns Section Related Observation LastModified by Organization Detai ls LastModified Time None Recorded Concern Status LastModified by Organization Details LastModified Time None Recorded Payers Encounter Date Sequence Insurance Name Policy Number Policy Brunner Covered Member ID Brunner Member ID Guarantor Name 01/15/2025 1 [facility] [id number] Melanie Chuy Haydenrafita [id number] 55 Miracle Michael Notes Date Note Type Note Provider Name and Address Organization Details Recorded Time 01/15/2025 text/html I saw Miracle virtually today via video after obtaining her consent and she was at home and I was in my clinic. Miracle is about a year after gastric sleeve and she has done well without any complaints. She lost close to 100 pounds corresponding to about 15 points BMI.She has increased hunger and a bit increased ability to eat as far as portions.She admitted not to be exercising 150 minutes/week. Jeanna Faust MD [address] [facility],[address], [place], [address], [facility] 01/15/2025 15:00:15 OBGyn Episode No OBEpisode recorded.
--- OUTSIDE RECORDS SUMMARY | 2025-02-03 16:51 | XMS_ITS | Continuity of Care Document ---
Author Organization [facility] Adv Surgery, [facility] Surgery Address [address] [facility] [address] [place] [address] Care Team Providers Care Drive Worker Name Role Phone TAHIR CABALLERO Primary Care Provider MADHURI COATS Haulage Engine Operator Assessment Encounter Date Assessment Date Assessment LastModified by Organization Details LastModified Time 12/27/2024 12/27/2024 Patient is here for 11 month bariatric follow-up s/p primary lap OAGB 01/23/24. Not available 12/27/2024 14:44:56 Plan of Treatment Reminders Order Date Submit Date Provider Last Modified By Organization Details Last Modified Time Details Appointments Video - Bariatric F/U 2024 12:30P M MIMI ALVAREZ NP Not available Not available Not available Lab CBC 2024 025 BIANCA Not available 12/28/2024 12:28:05 CMP, serum or plasma 2024 025 Not available 12/28/2024 11:57:33 vitamin B12, serum 2024 025 BIANCA Not available 12/28/2024 13:13:28 mma (methylma lonic acid), serum 2024 025 Not available 12/28/2024 11:57:33 vitamin B1 (thiamine ), blood 2024 025 BIANCA Not available 01/04/2025 17:02:21 vitamin A (retinol) , serum 2024 025 BIANCA Not available 01/09/2025 08:26:30 zinc, serum or plasma 2024 025 Not available 12/28/2024 11:57:33 folate, RBC 2024 025 Not available 12/28/2024 11:57:33 iron + TIBC + ferritin, serum 2024 025 BIANCA Not available 12/28/2024 13:13:28 vitamin D, 25-hydrox y, total, serum 2024 025 BIANCA Not available 12/28/2024 12:29:44 copper, serum or plasma 2024 025 BIANCA Not available 01/07/2025 11:38:25 vitamin E, serum 2024 025 BIANCA Not available 01/07/2025 05:16:26 HbA1c (hemoglob in A1c), blood 2024 025 Not available 12/28/2024 11:57:34 Referral None recorded. Procedures None recorded. Surgeries [...] Recorded Time Primary ITP (immune thrombocyto penia) 901134217 Active 2023 Irene harris [facility] Adv Surgery 4 16:35:27 Morbid obesity 992206474 Active 2023 Irene harris [facility] Adv Surgery 4 17:16:15 Type 2 diabetes mellitus 93799046 Active 2023 Irene harris [facility] Surgery 17:18:17 Essential hypertensio n 41899149 Active 2023 Irene harris [facility] 4 17:18:28 Hypothyroid ism 91337820 Active 2023 Irene harris, [facility] 4 17:25:14 Sleep apnea 12604162 Active 2023 Irene harris, [facility] 4 17:25:31 Abdominal pain 54555932 Active 2024 Mabel harris [facility] Adv Surgery 5 11:50:27 History of bariatric surgical procedure 725370414 Active 2024 LUCITA ORNELAS MD [address], [place], [address], [facility] Adv Surgery 5 14:48:31 Problem Notes None recorded. Procedures Surgical History Date Name Laterality Status Provider Name and Address Organization Details Recorded Time 5 [facility] 09/25/2024 11:09:21 5 [facility] 06/18/2024 11:41:07 4 Telehealth completed Angela [address], [place], [address], [facility] Adv Surgery 02/10/2024 11:37:12 4 Telehealth completed [facility] Surgery 01/12/2024 21:10:13 4 Telehealth completed Angela [address], [place], [address], [facility] Adv Surgery 11/17/2023 17:17:48 4 Telehealth completed Angela [address], [place], [address], [facility] Adv Surgery 08/22/2023 11:08:39 6 Other completed Angela [address], [place], [address], [facility] Adv Surgery 11/17/2023 17:25:08 10/18/200 8 Back Surgery completed Irene Rosales [facility] Surgery 07/29/2023 16:29:55 bypass of stomach completed Adenike Flores [facility] Adv Surgery 01/15/2025 13:55:59 Imaging Results None recorded. Procedure Notes None recorded. Medical Equipment None Reported. Allergies Allergen ID Allergen Name Allergen Category Reaction Reaction Severity Criticality Documentation Date Start Date Code Code System Note Provider Name and Address Organization Details Recorded Time 15253 morphine medicatio n Not available Not available Not available 07/29/2023 7052 RxNorm Irene Rosales [email or web address] [facility] Adv Surgery 4 16:29:11 50025 rituximab medicatio n Not available Not available Not available 07/29/2023 97173 1 RxNorm [facility] 16:29:11 Medications Name Sig Start [...] and Address Organization Details Last Updated DateTime 12/27/2024 165.1 cm 46.4 kg/m2 841678.27 g LUCITA ORNELAS MD [address] [facility] [address], [place], [address] of Adv Surgery 12/27/2024 14:33:43 Social History Question Answer Notes LastModified by Organizat ion Details LastModified Time Tobacco Smoking Status Never Smoker Irene harris [facility] of Adv Surgery 07/29/2023 16:29:49 Is Blood Transfusion Acceptable In An Emergency? Yes Information not available 07/29/2023 How Many Children Do You Have? 0 Information not available 07/29/2023 Have You Ever Been Counseled For Unhealthy Alcohol Use? No Information not available 01/15/2025 What Is Your Relationship Status? Information not available 07/29/2023 Sex: Unknown Functional Status Question Answer Note LastModified by Organizat ion Details LastModified Time Do you use any illicit or recreational drugs? No [email or web address] Information not available 01/15/2025 What is your level of alcohol consumption? None [email or web address] Information not available 01/15/2025 Are you currently [...] Bleeding Disorders Y Depression Y Anemia Y Diabetes Y Anxiety Disorder Y Morbid Obesity Y Sleep Apnea Y Hypertension Y Gynecological HistoryNo gynecological history recorded. Obstetrics History GPAL:G 0 P 0 0 0 0 Past Encounters Encounter ID Performer Location Encounter Start Date Encounter Closed Date Diagnosis/Indication Diagnosis SNOMED-CT Code Diagnosis ICD10 Code Diagnosis IMO Codes Diagnosis Note [id number] Jeanna Faust MD [facility] [address] [place] [address] 12/27/2024 14:32:48 12/29/2024 03:48:02 History of bariatric surgical procedure 240772387 Z98.84 445862 Patient has good progress and reports no major issues. Patient will see us again in 2 months for the ~1 year follow-up. Reassured that if any questions or concerns arise to contact the office. She is motivated to get a gym membership to increase her exercising and strength training. She is also going to improve on her water intake. Health Concerns Section Related Observation LastModified by Organization Oma ls LastModified Time None Recorded Concern Status LastModified by Organization Details LastModified Time None Recorded Payers Encounter Date Sequence Insurance Name Policy Number Policy Brunner Covered Member ID Brunner Member ID Guarantor Name 12/27/2024 1 [facility] [id number] Melanie Michael [id number] Miracle Alec Notes Date Note Type Note Provider Name and Address Organization Details Recorded Time 12/27/2024 text/html This visit was conducted via telehealth. After brief education on the format, patient consented to the Telehealth visit and verbalized understanding of the limitation of virtual consultations. Patient connected from home and seemed to be in a quiet environment where they can have full comprehension of our conversation. I was in my office. Patient is here for 11 month bariatric follow-up s/p primary lap OAGB 01/23/24. P re op weight/BMI: 363Current weight/BMI: 279/46.9EWL: 39. Feels more mobile and has a lot more energy. Changes to medical history since surgery:- Anx/Dep - down to Abilify 15mg from 20mg- HTN - Was on 30mg nifedipine to amlodipine 5mg, also bisoprolol, and BP is now normal- DM - latest Hba1c = 8 (~3-4mo ago), only on jardiance- ZAMZAM - feels less tired during the day. Unsure if snoring changes. Non-compliant with CPAP Protein (Goal 60-100g/day): ~60g / dayWater (Goal 64 oz/day): ~40oz/dayExercise (Goal 150min/wk): ~90mins / week of walkingVitamins: Compliant with daily multivitamins D enies heartburn, regurgitation or dysphagia.Regular bowel movements. LUCITA ORNELAS MD [address] [facility],[address], [place], [address], [facility] 12/27/2024 15:32:43 OBGyn Episode No OBEpisode recorded.
--- OUTSIDE RECORDS SUMMARY | 2025-02-03 16:51 | XMS_ITS | Encounter Summary ---
[facility] Address [address] [place] [address] Care Team Providers Care Manager Industrial Name Role Phone Eric Freire MD Primary Care Provider [phone] Reason for Visit * Reason Comments Med Refill Encounter Details Date Type Department Care Team (Late st Contact Info) Description 01/27/2020 Refill [facility] CARDIOLOGY [address] [facility] [address] [place] [address] Zafar Lugo MD [address] [facility] [address] [address] [place] [address] Med Refill Social History Tobacco Use Types [...] Ancillary Procedure [facility] O[facility]YN [address] [facility] [address] [place] [address] 02/06/2025 8:30 AM EDT Office Visit [facility] OBGYN [address] [facility] [address] [place] [address] Shasha Blair MD [address] [facility] [address] [place] [address] documented as of this encounter Visit Diagnoses Not on filedocumented in this encounter Care Teams Manager Industrial Relationship Specialty Start Date End Date Eric Freire MD [address] [place] [address] PCP - General Family Medicine 04/16/24 documented as of this encounter
--- OUTSIDE RECORDS SUMMARY | 2025-02-03 16:51 | XMS_ITS | Encounter Summary ---
Author Organization [facility] Address [address] [place] [address] Care Team Providers Care Golf Cart Repairer Name Role Phone Eric Freire MD Primary Care Provider [phone]- [phone] Encounter Details Date Type Department Care Team (Latest Contact Info) Description 01/07/2025 Travel Social History Tobacco Use Types Packs/Day Years [...] Description 02/06/2025 8:00 AM EDT Ancillary Procedure [facility] OBG[facility] [address] [id number] 02/06/2025 8:30 AM EDT Office Visit [facility] OBGYN [address] [address] Shasha Blair MD [address] [address] documented as of this encounter Visit Diagnoses Not on filedocumented in this encounter Care Teams Golf Cart Repairer Relationship Specialty Start Date End Date Eric Freire MD [address] [place] [address] PCP - General Family Medicine 04/16/24 documented as of this encounter
--- OUTSIDE RECORDS SUMMARY | 2025-02-03 16:52 | XMS_ITS | Data Portability ---
Author Organization [facility], autoContract Address [address] [place] [address] Care Team Providers Care Metal Drilling Machine Operator Name Role Phone TAHIR CABALLERO Primary Care Provider MADHURI COATS Account Technician Assessment Encounter Date Assessment Date Assessment LastModified by Organization Details LastModified Time 05/17/2024 05/17/2024 Patient has good progress. All [...] D + vit D 10k IU daily. [email or web address] Not available 05/17/2024 14:39:58 06/18/2024 06/18/2024 Ms. Michael is a 29 yo F sp OAGB on 01/23/[address] Faust (now 4 months post op) [email or web address] Not available 06/18/2024 11:53:37 09/25/2024 09/25/2024 Ms. Michael is a 29 yo F sp OAGB on 01/23/[address] Fr[address] Faust [email or web address] Not available 09/25/2024 12:17:52 12/27/2024 12/27/2024 Patient is here for 11 [...] By Organization Details Last Modified Time 01/15/2025 [id number] When You Want to Lose Weight: Care Instructions [email or web address] Not available 01/15/2025 15:00:11 Reason for Referral None Reported. Results Created Date Observation Date Name Description Value Unit Range Abnormal Flag Note LastModifiedBy Organization Detail LastModifiedTime Result Notes None recorded. Problems Name Problem SNOMED Code Status Onset Date Resolution Date Notes Provider Name and Address Organization Details Recorded Time Primary ITP (immune thrombocyto penia) 379015028 Active 2023 Irene harris [facility] 4 16:35:27 Morbid obesity 980675868 Active 2023 Irene harris [facility] 17:16:15 Type 2 diabetes mellitus 16667197 Active 2023 Irene harris [facility] 17:18:17 Essential hypertensio n 73166470 Active 2023 Irene harris [facility] 4 17:18:28 Hypothyroid ism 66609467 Active 2023 Irene harris [facility] 17:25:14 Sleep apnea 75419797 Active 2023 Irene harris [facility] 4 17:25:31 Abdominal pain 14809228 Active 2024 Mabel harris [facility] 5 11:50:27 History of bariatric surgical procedure 550415353 Active 2024 LUCITA ORNELAS MD [address], [place], [address], [facility] 5 14:48:31 Problem Notes None recorded. Procedures Surgical History Date Name Laterality Status Provider Name and Address Organization Details Recorded Time 5 Telehealth completed [facility] 09/25/2024 11:09:21 5 Telehealth completed [facility] 06/18/2024 11:41:07 4 Telehealth completed [facility] [address] [facility], [place], [address], [facility] 02/10/2024 11:37:12 4 Telehealth completed [facility] 01/12/2024 21:10:13 4 Telehealth completed [facility] [address], [place], [address], [facility] 11/17/2023 17:17:48 4 Telehealth completed [facility] [address], [place], [address], [facility] 08/22/2023 11:08:39 6 Other completed [facility] [address], [place], [address], [facility] 11/17/2023 17:25:08 8 Back Surgery completed Irene Rosales [facility] 07/29/2023 16:29:55 bypass of stomach completed Adenike Flores [facility] 01/15/2025 13:55:59 Imaging Results None recorded. Procedure Notes None recorded. Medical Equipment None Reported. Allergies Allergen ID Allergen Name Allergen Category Reaction Reaction Severity Criticality Documentation Date Start Date Code Code System Note Provider Name and Address Organization Details Recorded Time 63632 morphine medicatio n Not available Not available Not available 07/29/[address] [facility] 4 16:29:11 46999 rituximab medicatio n Not available Not available Not available 07/29/2023 12367 1 RxNorm Irene Rosales [facility] 4 16:29:11 Medications Name [...] Updated DateTime 05/17/2024 165.1 cm 50.4 kg/m2 708785.49 g Irene Rosales [facility] 05/17/2024 12:19:51 Date Recorded Body weight Body mass index (BMI) Body height Provider Name and Address Organization Details Last Updated DateTime 06/18/2024 502734.12 g 49.8 kg/m2 165.1 cm [facility] 06/18/2024 11:34:25 Date Recorded Body weight Body mass index (BMI) Body height Provider Name and Address Organization Details Last Updated DateTime 09/25/2024 142247.38 g 48.4 kg/m2 165.1 cm [facility] 09/25/2024 11:05:49 Date Recorded Body height Body mass index (BMI) Body weight Provider Name and Address Organization Details Last Updated DateTime 12/27/2024 165.1 cm 46.4 kg/m2 956437.27 g LUCITA ORNELAS MD [address], [place], [address], [facility] 12/27/2024 14:33:43 Date Recorded Body height Body mass index (BMI) Body weight Provider Name and Address Organization Details Last Updated DateTime 01/15/2025 165.1 cm 45.8 kg/m2 303506.9 g Adenike Flores [facility] 01/15/2025 13:47:58 Social History Question Answer Notes LastModified by Organizat ion Details LastModified Time Tobacco Smoking Status [facility] 07/29/2023 16:29:49 Is Blood Transfusion Acceptable In An Emergency? Yes Information not available 07/29/2023 How Many Children Do You Have? 0 Information not available 07/29/2023 Have You Ever Been Counseled For Unhealthy Alcohol Use? No [email or web address] Information not available 01/15/2025 What Is Your Relationship Status? Information not available 07/29/2023 Sex: Unknown Functional Status Question Answer Note LastModified by Organizat ion Details LastModified Time Do you use any illicit or recreational drugs? No [email or web address] Information not available 01/15/2025 What is your level of alcohol consumption? None [email or web address] Information not available 01/15/2025 Are you currently [...] available 2024 14:33:10 Medical History Condition Response Diabetes Y Anxiety Disorder Y Anemia Y Thyroid Disease Y Bleeding Disorders Y Sleep Apnea Y Hypertension Y Depression Y Morbid Obesity Y Gynecological HistoryNo gynecological history recorded. Obstetrics History GPAL:G 0 P 0 0 0 0 Past Encounters Encounter ID Performer Location Encounter Start Date Encounter Closed Date Diagnosis/Indication Diagnosis SNOMED-CT Code Diagnosis ICD10 Code Diagnosis IMO Codes Diagnosis Note [id number] Jeanna Faust MD [facility] [address] [place] [address] 07/29/2023 16:28:37 08/04/2023 19:37:25 Morbid obesity 782738763 E66.01 BMI 52.4. Patient interested in bariatric surgery for treatment of class 3 obesity. Type 2 den betes mellitus 22222199 Z79.4 Diagnosed 1.5 years ago. Most recent A1c 14% per patient. On basal + bolus insulin and metformin. Followed by endocrine. Essential hypertension 80881893 I10 On bisoprolol -HCTZ and nifedipine Hypothyroidism 58639446 E03.9 On levothyrox ine Sleep apnea 10535852 G47 .30 Diagnosed a year ago. Not adherent with CPAP. Primary IT P (immune thrombocytopenia) 424129724 D69.59 Diagnosed in 2020 during which she received IV steroids. Followed by hematology . Most recent platelet count 250k per patient. [id number] MD ZAK Munguia [facility] [address] [facility],[address] [place] [address] 08/22/2023 09:58:12 09/14/2023 22:52:26 Morbid obesity 393500965 E66.01 The pt is interested in surgery to help with obtaining a healthier weight in order to improve their high blood pressure and prevent the developmen t of other obesity related comorbidit ies. Type 2 den betes mellitus 92676621 Z79.4 14% 05/2023. Will re-do prior to surgery. Looking for downward trend. Pt is understand ing of this. [id number] MD ZAK [facility] [address] [place] [address] 11/17/2023 17:13:31 11/18/2023 13:46:28 Morbid obesity 493673683 E66.01 I had a long discussion with [...] her at that time. Type 2 den betes mellitus 55168984 Z79.4 She is on oral metformin and insulin and her hemoglobin A1c has increased from 14-11 but still unacceptab ly high for surgery. I told her about exercise as a described above and asked her to remeasure in 8 weeks Primary IT P (immune thrombocytopenia) 700370931 D69.59 Patient is not on any treatment currently. Her platelet count is 170 today. This affects her with petechia In her lower legs and generalize d fatigue [id number] MABEL JEROME MD [facility] [address] [facility] [address] [place] [address] 01/12/2024 11:05:27 01/13/2024 13:53:48 Morbid obesity 583762011 E66.01 Ms. Michael is a 28 yo [...] up with us in the short and detention and understand s all the signs and symptoms that would necessitat e to call us. Starts liquid diet 01/15; emphasized importance of adequate hydration before and after surgery. Reminded having all medication s in crushable form for 6 weeks after surgery. Reviewed pre-op instructio ns and answered questions. Post-op f/u scheduled 01/25. Primary IT P (immune thrombocytopenia) 443793939 D69.59 stable for 5 years, not required any treatments with steroids.. [id number] Jeanna Faust MD [facility] [address] [address] 01/26/2024 10:16:28 01/26/2024 10:49:22 Postoperative visit 811401009 Z48.89 [id number] [facility] [address] [place] [address] 02/10/2024 11:36:28 03/09/2024 03:48:44 [id number] [facility] [address] [facility] [address] [place] [address] 03/09/2024 11:59:54 03/12/2024 15:17:11 Postoperative visit 449286061 Z48.89 s/p OAGB 01/22 [id number] Jeanna Faust MD [facility] [address] [address] 05/17/2024 11:59:49 05/17/2024 16:22:54 Morbid obesity 728058132 E66.01 s/p OAGB Abdominal pain 06982397 R10.9 postprandi al; to start daily pepcid and decrease carbohydra te intake Type 2 den betes mellitus 36536104 Z79.4 Most recent A1c 7.8% and AM BG readings above goal. To resume metformin 500 mg BID. Encouraged follow up with PCP. [id number] MABEL JEROME MD [facility] [address] [facility] [address] [place] [address] 06/18/2024 11:30:15 06/18/2024 15:58:36 Type 2 diabetes mellitus 65768272 Z79.4 improved, no longer using insulin or metformin last a1c was 7.8 , she has fu with her endocrinol ogist in a few weeks Morbid obesity 430965535 E66.01 encouraged pt to use baritastic applicatio [...] 2 months to discuss progress. Abdominal pain 90724520 R10.9 post prandial pain after eating c/f symptomati c gallstones . encouraged patient to fu with her PCP for RUQ u/s and may require cholecyste ctomy. persistent RUQ pain with nausea/vom iting/ and fevers/chi lls recommend pt go to the emergency room d/t risk of acute cholecysti tis. [id number] MABEL JEROME MD [facility] [address] [facility] [address] [place] [address] 09/25/2024 10:56:24 09/25/2024 16:54:07 Morbid obesity 545640655 E66.01 current weight 291 lbs (down 64 [...] D gummie and multivitam in with iron. [id number] Jeanna Faust MD [facility] [address] [place] [address] 12/27/2024 14:32:48 12/29/2024 03:48:02 History of bariatric surgical procedure 058896190 Z98.84 [id number] Patient has good progress and reports no major issues. Patient will see us again in 2 months for the ~1 year follow-up. Reassured that if any questions or concerns arise to contact the office. She is motivated to get a gym membership to increase her exercising and strength training. She is also going to improve on her water intake. [id number] Jeanna Faust MD [facility] [address] [place] [address] 01/15/2025 13:28:51 01/16/2025 12:44:00 Morbid obesity 798518007 E66.01 Excellent progress 1 year after gastric [...] DISCOUNT Miracle Michael 09/19/2023 2 [place] [id number] Melanei Michael [id number] Miracle Michael 12/27/2024 CARRUM Miracle Michael CARRUM CARRUM Miracle Michael 01/16/2025 1 [place] [id number] Melanie Michael [id number] Miracle Michael 10/13/2023 1 [place] [id number] Melanie Michael [id number] 55 [id number] Miracle Michael Notes Date Note Type Note Provider Name and Address Organization Details Recorded Time 05/17/2024 text/html This visit was conducted via [...] month follow up s/p OAGB 01/23/24 at [facility].Initial weight 362 lbs, BMI 60.Current weight 303 lbs, BMI 50.4. She reports 2 weeks of postprandial epigastric discomfort occurring 2-3x weekly regardless of what she eats. Associated emesis 1-2x weekly and loose stools 3-4x daily- no hematochezia. Denies abdominal bloating, fever, chills, other sick contacts. Off all DM2 meds; however, AM BG readings remain ~180s. Off nifedipine, transitioned to amlodipine 5 mg. RODRIGUEZ Dennison - [facility] 05/17/2024 14:49:57 06/18/2024 text/html Ms. Michael is a 29 yo F sp OAGB on 01/23/24 with Fr. Francetfaileenurrent weight 299 lbs (down 64 lbs)last A1C [...] their GB removed due to symptomatic gallstones. Mabel harris [facility] 06/18/2024 11:54:55 09/25/2024 text/html Ms. Michael is a 29 yo F sp OAGB on 01/23/24 with Fr. Shireenurrent weight 291 lbs (down 64 lbs) // [...] vitamin D gummie and multivitamin with iron. Mabel harris [facility] 09/25/2024 12:18:12 12/27/2024 text/html This visit was conducted via [...] dysphagia.Regular bowel movements. LUCITA ORNELAS MD [address], [place], [address], [facility] 12/27/2024 15:32:43 01/15/2025 text/html I saw Miracle virtually today [...] exercising 150 minutes/week. Jeanna Faust MD [address], [place], [address], [facility] 01/15/2025 15:00:15 OBGyn Episode No OBEpisode recorded.
--- OUTSIDE RECORDS SUMMARY | 2025-02-03 16:52 | XMS_ITS | Encounter Summary ---
Author Organization [employer] ([place], [place], [place], [place]) Address [address] [place] [address] Care Team Providers Care Smart Grid Engineer Name Role Phone Eric Freire MD Primary Care Provider [phone] Aime Walker MD Unavailable [phone] Reason for Visit * Reason Onset Date Comments Appointment 12/28/2024 Encounter Details Date Type Department Care Team (Late st Contact Info) Description 12/28/2024 Telephone [facility] - [facility] [address] [place] [address] [address] [place] [address] Aime Walker MD [address] [facility] 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 documented in this encounter Plan of Treatment Upcoming Encounters Date Type Department Care Team (Late st Contact Info) Description 12/27/2025 9:00 AM EDT Office Visit [facility] - [facility] [address] [place] [address] [address] [place] [address] Aime Walker MD [address] [facility] [address] [place] [address] documented as of this encounter Visit Diagnoses Not on filedocumented in this encounter Care Teams Smart Grid Engineer Relationship Specialty Start Date End Date Eric Freire MD [address] [place] [address] [place] [address] PCP - General Family Medicine 06/08/23 Aime Walker MD [address] [place] [address] Hematology and Oncology 12/28/24 documented as of this encounter
--- OUTSIDE RECORDS SUMMARY | 2025-02-03 16:52 | XMS_ITS | Clinical Summary ---
Author Organization [employer] ([place], [place], [place], [place]) Address [address] [place] [address] Care Team Providers Care Shipping Services Sales Representative Name Role Phone Eric Freire MD Primary Care Provider [phone] Aime Walker MD Unavailable [phone] Allergies Active Allergy Reactions Criticality Noted Date Comments Morphine Hives High 03/26/2022 Rituximab Other (See Comments) 10/21/2022 Scratchy throat, hotness , sweating Medications ARIPiprazole (ABILIFY) 20 MG tablet Take 0.5 tablets (10 mg total) by mouth 2 (two) times daily. 03/26/2022 Active busPIRone (BUSPAR) 15 MG tablet Take 1 tablet (15 mg total) by mouth 3 (three) times daily. 02/20/2022 Active levothyroxine (SYNTHROID, LEVOTHROID) 175 MCG tablet Take 1 tablet (175 mcg total) by mouth daily. 03/31/2022 Active sertraline (ZOLOFT) 100 MG tablet Take 1.5 tablets (150 mg total) by mouth daily. 04/04/2022 Active ferrous sulfate 325 (65 FE) MG tablet Take 1 tablet (325 mg total) by mouth daily. Active NORETHINDRONE AC-ETH ESTRADIOL ORAL Take by mouth. Active Jardiance 25 mg tablet Take 1 tablet (25 mg total) by mouth daily EVERY DAY. Active hydrOXYzine pamoate (VISTARIL) 25 MG capsule TAKE 1 CAPSULE BY MOUTH TWICE A DAY NEEDED FOR ANXIETY Active ketoconazole (NIZORAL) 2 % cream APPLY TO EFFECTED AREA DAILY FOR 2 WEEKS Active Active Problems Problem Noted Date Diagnosed Date Immune thrombocytopenic purpura 03/26/2022 Iron deficiency anemia, unspecified 03/26/2022 Encounters Date Type Department Care Team Description 12/28/2024 1:00 PM EDT Office Visit [facility] - [place] [address] [place] [address] Aime Walker MD Immune thrombocytopenic purpura (HCC) 12/28/2024 Documentation [facility] [place] [address] [place] [address] Aime Walker MD 12/28/2024 Travel 12/28/2024 Telephone [facility] [place] [address] [place] [address] Aime Walker MD Appointment 11/29/2024 Telephone [facility] [place] [address] [place] [address] Yanni Parisi RN Appointment from Last 3 Months Family History Medical [...] Date Benito rded Speak language other than Vietnamese at home Not on file 04/27/2023 Want [...] 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 on file Not [...] Mass Index 46.94 12/28/2024 12:53 PM EDT Plan of Treatment Upcoming Encounters Date Type Department Care Team (Late st Contact Info) Description 12/27/2025 9:00 AM EDT Office Visit [facility] - [place] [address] [facility] [address] [place] [address] Aime Walker MD [address] [facility] [address] [place] [address] Health Maintenance Due Date Last Done Comments Depression Screening (12+) 2005 HIV Screening 2008 Hepatitis C Screening 2011 Lipid Panel 2013 Pap Smear 2014 COVID-19 VACCINE (3 - 2024-2 6 season) 2024 07/09/2020, 06/11/2020 Influenza Vaccine (#1) 2024 DTAP/TDAP/TD VACCINES (3 - T d or Tdap) 08/30/2025 08/31/2015, 06/27/1998 Tobacco Cessation Counseling and Screening (12+) 12/28/2025 12/28/2024 Pneumococcal Vaccine: 0-49 Years Aged Out No longer eligible b ased on patient's age to complete this topic Insurance BLUE CROSS/BLUE SHIELD Care Teams Shipping Services Sales Representative Relationship Specialty Start Date End Date Eric Freire MD [address] [place] [address] [place] [address] PCP - General Family Medicine 06/08/23 Aime Walker MD [address] [facility] [address] [place] [address] Hematology and Oncology 12/28/24
--- OUTSIDE RECORDS SUMMARY | 2025-02-03 16:52 | XMS_ITS | Encounter Summary ---
Author Organization [employer] ([place], [place], [place], [place]) Address [address] [place] [address] Care Team Providers Care Standpipe Tender Name Role Phone Eric Freire MD Primary Care Provider [phone]- [phone] Aime Walker MD Unavailable [phone] Encounter Details Date Type Department Care Team (Late st Contact Info) Description 12/28/2024 Documentation [facility] - [place] [address] [facility] [address] [place] [address] Aime Walker MD [address] [place] [address] [place] [address] Social History Tobacco Use Types Packs/Day Years [...] Date Benito rded Speak language other than French at home Not on file 04/27/2023 Want [...] 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 [address] [facility] [address] [place] [address] Aime Walker MD [address] [facility] [address] [place] [address] documented as of this encounter Visit Diagnoses Not on filedocumented in this encounter Care Teams Standpipe Tender Relationship Specialty Start Date End Date Eric Freire MD [address] [place] [address] [place] [address] PCP - General Family Medicine 06/08/23 Aime Walker MD [address] [facility] [address] [facility] [address] [place] [address] Hematology and Oncology 12/28/24 documented as of this encounter
--- OUTSIDE RECORDS SUMMARY | 2025-02-03 16:52 | XMS_ITS | Referral Summary ---
Author Organization [employer] ([place], [place], [place], [place]) Address [address] [place] [address] Care Team Providers Care Division Officer Weapons Department Name Role Phone Eric Freire MD Primary Care Provider [phone] Aime Walker MD Unavailable [phone] Encounters Date Type Department Care Team Description 12/28/2024 Documentation [facility] - [place] [address] [place] [address] Aime Walker MD 12/28/2024 Travel 12/28/2024 1:00 PM EDT Office Visit [facility] - [place] [address] [place] [address] Aime Walker MD Immune thrombocytopenic purpura (HCC) 12/28/2024 Telephone [facility] - [place] [address] [place] [address] Aime Walker MD Appointment 11/29/2024 Telephone [facility] - [place] [address] [place] [address] Yanni Parisi RN Appointment from Last 3 Months Allergies Active Allergy Reactions Criticality Noted Date [...] Date Benito rded Speak language other than Jordanian at home Not on file 04/27/2023 Want [...] 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
--- OUTSIDE RECORDS SUMMARY | 2025-02-03 16:52 | XMS_ITS | Encounter Summary ---
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 Not on file documented as of this encounter Plan of Treatment Upcoming Encounters Date Type Department Care Team (Late Contact Info) Description 12/27/2025 9:00 AM EDT Office Visit [facility] [place] [address] [place] [address] iAme Walker MD [address] [facility] [address] [place] [address] documented as of this encounter Visit Diagnoses Not on filedocumented in this encounter Care Teams Clinical Research Scientist Relationship Specialty Start Date End Date Eric Freire MD [address] [place] [address] PCP - General Family Medicine 06/08/23 Aime Walker MD [address] [facility] [address] [place] [address] Hematology and Oncology 12/28/24 documented as of this encounter
[2025-02-03 16:54] LABS: Bilirubin,Urine Negative (Negative); Color,Urine YELLOW (Yellow); Glucose,Urine (UA) Negative (Negative); Ketones,Urine Negative (Negative); Leukocyte Esterase,Urine Negative (Negative); PH,Urine 5.5 (5.0-8.5); Protein,Urine Negative (Negative); Specific Gravity, Urine >= 1.030 (1.005-1.030); Urobilinogen,Urine 0.2 EU/dl (0.2)
--- NOTE | 2025-02-03 16:56 | CT_ITS ---
PROCEDURE INFORMATION: Exam: CT Abdomen And Pelvis With Contrast Exam date and time: 02/03/2025 5:56 PM Age: 29 years old Clinical indication: Abdominal pain; Additional info: HX gastric bypass, upper abd pain, n/v/d TECHNIQUE: Imaging protocol: Computed tomography of the abdomen and pelvis with contrast. Radiation optimization: All CT scans at this facility use at least one of these dose optimization techniques: automated exposure control; mA and/or kV adjustment per patient size (includes targeted exams where dose is matched to clinical indication); or iterative reconstruction. Contrast material: ISOVUE; Contrast volume: 75 ml; Contrast route: IV; COMPARISON: US KIDNEY 06/27/2019 3:59 PM FINDINGS: Lungs: Minimal atelectasis/scarring. Diaphragm: Small hiatal hernia. Liver: Mildly enlarged. Fatty infiltration. Gallbladder and biliary ducts: No calcified stones. No ductal dilation. Pancreas: Unremarkable. No ductal dilation. Spleen: Moderately enlarged. Adrenal glands: No mass. Kidneys and ureters: Unremarkable. No significant hydronephrosis. Stomach and bowel: Postsurgical changes of stomach. Fluid within mid to distal small bowel. Fluid/loose stool within large bowel. No definite mural thickening. No obstruction. Appendix: Normal caliber. No inflammation. Intraperitoneal space: No significant fluid collection. No definite free air. Vasculature: Unremarkable. No aneurysm. Lymph nodes: No pathologically enlarged lymph nodes. Urinary bladder: Apparent mild wall thickening. Incomplete distention, limiting evaluation. Reproductive: Unremarkable as visualized. Bones/joints: Scoliosis/postsurgical changes of spine. No acute fracture. Soft tissues: Unremarkable. IMPRESSION: 1. Fluid within bowel may suggest diarrhea illness. 2. Cystitis vs underdistention. Correlate with urinalysis. 3. Hepatosplenomegaly.
--- NOTE | 2025-02-03 16:57 | PC.NURSE ---
Patients FSBS is 127.
--- NOTE | 2025-02-03 16:58 | HMH.EDGENADL ---
Discharge Plan Disposition Patient Disposition: Home, Self-Care Prescriptions Prescriptions: New ondansetron 4 mg tablet,disintegrating 4 mg PO Q6H PRN (Reason: nausea and vomiting) Qty: 16 0RF No Action sertraline 100 mg tablet 150 mg PO DAILY buspirone 15 mg tablet 15 mg PO BID ferrous sulfate 325 mg (65 mg iron) tablet 325 mg PO DAILY 90 Days Qty: 90 3RF bisoprolol fumarate 5 mg tablet 5 mg PO DAILY 90 Days Qty: 90 0RF levothyroxine 175 mcg tablet 175 mcg PO DAILY 90 Days Qty: 90 0RF cholecalciferol (vitamin D3) 1,250 mcg (50,000 unit) capsule 1,250 mcg PO WEEKLY Qty: 5 2RF amlodipine 5 mg tablet 5 mg PO DAILY Qty: 90 0RF Jardiance 25 mg tablet 25 mg PO DAILY Qty: 30 2RF aripiprazole [Abilify] 15 mg tablet 15 mg PO HS Referrals Follow up/Referrals: Provider,Referral, MD [Primary Care Provider, Medical] - See instructions Activity Restrictions/Add. Instructions Additional Instructions/Restrictions: You can take Zofran to help with your nausea and vomiting. You likely have a virus that is causing your symptoms that should resolve over time. Continue to hydrate by drinking plenty of fluids, including water, sugar-free Gatorade and Pedialyte. If you develop any new or worsening symptoms, or if you become concerned for your help for any reason, return to the emergency department for evaluation. Clinical Impressions Clinical Impression: Diarrhea Instructions Patient Instructions: DI for Acute Abdominal Pain Print Language Print Language: Hebrew Discharge ED Provider: Shawn Walton General Adult HPI General Chief complaint: Abdominal Pain Stated complaint: abdominal pain,vomiting Time Seen by Provider: 02/03/25 16:43 Mode of Arrival: Ambulatory Source of Information: Patient Description of Symptoms (Recalled from ER Triage Doc. by RN): Pt presents for evaluation of mid abd pain, vomiting, and diarrhea for 3 days. Pt states she has a hx of gastric bypass. History of Present Illness HPI narrative: Miracle Michael is a 29F with a history of gastric bypass surgery, type 2 diabetes, obesity, hypertension, hypothyroidism, PCOS who presents to the emergency department for 3 days of nonbilious nonbloody vomiting and diarrhea and upper abdominal pain. Patient states that she has had multiple episodes of vomiting and diarrhea over the course of the past 3 days without fever. She denies any chest pain. She denies any current shortness of breath. She states that she has been able to keep down a small amount of liquid today but has not taken any medications prior to arrival. She reports having gastric bypass surgery 1 year ago in [place] and is concerned it may be related to that or her gallbladder. She states that the abdominal pain is mostly on the left upper side. She denies any dysuria or hematuria. Related Data Home Medications ?Medication ?Instructions ?Recorded ?Confirmed buspirone 15 mg tablet 15 mg PO BID 11/16/21 12/28/24 sertraline 100 mg tablet 150 mg PO DAILY Depression 08/17/22 12/28/24 aripiprazole 15 mg tablet (Abilify) 15 mg PO HS 10/07/24 12/28/24 Previous Rx's ?Medication ?Instructions ?Recorded ferrous sulfate 325 mg (65 mg 325 mg PO DAILY Supplement 90 days 06/08/23 iron) tablet #90 tabs bisoprolol fumarate 5 mg tablet 5 mg PO DAILY HTN 90 days #90 tabs 12/23/23 levothyroxine 175 mcg tablet 175 mcg PO DAILY 90 days #90 tabs 04/25/24 cholecalciferol (vitamin D3) 1,250 1,250 mcg PO WEEKLY #5 caps 09/04/24 mcg (50,000 unit) capsule amlodipine 5 mg tablet 5 mg PO DAILY #90 tabs 11/26/24 empagliflozin 25 mg tablet 25 mg PO DAILY #30 tabs 01/28/25 (Jardiance) ondansetron 4 mg disintegrating 4 mg PO Q6H PRN nausea and 02/03/25 tablet vomiting #16 tabs Allergies Allergy/AdvReac Type Severity Reaction Status Date / Time morphine Allergy Intermediate I-HIVES Verified 12/28/24 08:26 rituximab (From Rituxan) Allergy Unknown Verified 12/28/24 08:26 allergy reaction PFSH [facility] Disclaimer: The information contained in this section may have been updated after the patient was seen, as this information can be updated by other users. Medical History Need for tuberculosis vaccination Hypothyroidism (07/29/23) Sleep apnea (07/29/23) Type 2 diabetes mellitus (07/29/23) Essential hypertension (07/29/23) Morbid obesity (07/29/23) Acute ITP Diabetes Pre-op testing Abnormal ECG Chest pain Sleep apnea with use of continuous positive airway pressure (CPAP) Chronic ITP (idiopathic thrombocytopenic purpura) Depression with anxiety PCOS (polycystic ovarian syndrome) Prediabetes Hypothyroid Hypertension Continue current treatment. 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) Travel in the last 8 weeks?: None household members: spouse housing: house caffeine: No Have you lived/traveled outside US in past 30 days?: No Contact w/someone who lives/traveled outside US past 30 days?: No Exposure to someone with infectious disease in past 14 days?: No Do you have a fever (greater than 100.4 F or 38 C)?: No Have you tested positive for COVID-19?: No Exposed to someone with COVID-19 in past 14 days?: No Do you have a sore throat?: No Do you have a cough?: No Do you have any weakness?: No Do you have any diarrhea?: No Are you experiencing any unusual bleeding?: No Do you have any muscle aches/pain?: No Do you have any abdominal pain?: No Are you experiencing loss of taste or smell?: No Other Medical History Have you received the Flu Vaccine for this season: No Have you received the Pneumonia Vaccine: No ROS Obtained: Yes Systems reviewed as appropriate & no additional complaints except as documented Physical Exam General General appearance: alert, in no apparent distress and obese Head Head exam: atraumatic Eye Eye exam: Present normal appearance ENT ENT exam: Present normal external ear exam Neck Neck exam: Present full ROM Chest Chest inspection: Present symmetric chest wall rise Respiratory Respiratory exam: Present normal lung sounds bilaterally; Absent respiratory distress, wheezes or stridor Cardiovascular Cardiovascular exam: Present regular rate and normal rhythm Abdominal Exam Abdominal exam: Present soft and tenderness (Epigastric, LUQ, and RUQ); Absent guarding or rigidity Extremities Exam Extremities exam: Present normal inspection Back Exam Back exam: Present normal inspection Neurological Exam Neurological exam: Present alert and oriented X3 Psychiatric Psychiatric exam: Present normal affect Skin Skin exam: Present warm and dry Medical Decision Making Medical Records Screening: Per USPSTF and CDC recommendations, given the prevalence of disease in our region, it is our hospital?s policy to screen for HIV and viral Hepatitis for all patients aged 18 and over and those with ongoing risk factors. Chapo Inquiry Pt receiving controlled substance: No Vital Signs: 02/03/25 16:38 02/03/25 17:00 02/03/25 18:14 Temperature 98 F Temperature Source Oral Pulse Rate 101 H 90 Pulse Rate [Right] 90 Respiratory Rate 18 Blood Pressure 181/131 H Blood Pressure [Right Arm] 143/106 H Blood Pressure Mean [Right Arm] 118 Blood Pressure Source [Right Arm] Automatic Cuff Blood Pressure Position [Right Arm] Sitting 02 Sat by Pulse Oximetry 99 97 98 Oxygen Delivery Method Room Air 02/03/25 19:50 Temperature 98.3 F Temperature Source Pulse Rate 86 Pulse Rate [Right] Respiratory Rate 20 Blood Pressure 156/131 H Blood Pressure [Right Arm] Blood Pressure Mean [Right Arm] Blood Pressure Source [Right Arm] Blood Pressure Position [Right Arm] 02 Sat by Pulse Oximetry Oxygen Delivery Method Room Air Lab Data Lab Results 02/03/25 16:49: Urine Color Yellow, Urine Appearance Clear, Urine pH 5.5, Ur Specific [place]der[place] >= 1.030, Urine Protein Negative, Urine Glucose (UA) Negative, Urine Ketones Negative, Urine Blood Negative, Urine Nitrate Negative, Urine Bilirubin Negative, Urine Urobilinogen 0.2, Ur Leukocyte Esterase Negative, Urine RBC 3-5, Urine WBC 3-5, Ur Squamous Epith Cells 3-5, Calcium Oxalate Crystal 3+ 02/03/25 16:55: WBC 9.4, RBC 5.90 H, Hgb 14.7, Hct 45.0, MCV 76.3 L, MCH 24.9 L, MCHC 32.7, RDW 14.6, Plt Count 174, MPV 10.0, Neut % (Auto) 71.9, Lymph % (Auto) 16.7, [place] % (Auto) 10.1 H, Eos % (Auto) 0.5, Baso % (Auto) 0.4, Neut # (Auto) 6.8, Lymph # (Auto) 1.6, [place] # (Auto) 1.0, Eos # (Auto) 0.1, Baso # (Auto) 0.0, VBG pH 7.37, VBG pCO2 43.6, VBG pO2 61.1 H, VBG HCO3 24.5, VBG Total CO2 25.9, VBG O2 Saturation 89.9 H, VBG Base Excess -0.8, VBG Lactic Acid 1.4, Sodium 138, Potassium 4.1, Chloride 102, Carbon Dioxide 27, Anion Gap 13.1, BUN 8, Creatinine 0.60, Estimated Creat Clear 122, Estimated GFR 117, Est GFR ( Amer) 141, Glucose 123 H, Calcium 9.0, Magnesium 1.7, Total Bilirubin 0.4, AST 31, ALT 36, Alkaline Phosphatase 99, Total Protein 6.9, Albumin 4.1, Globulin 2.8, Albumin/Globulin Ratio 1.5, Lipase 43, Serum HCG, Qual Negative, Acetone Level None detected 02/03/25 16:55 02/03/25 16:55 Orders (Tests/Meds): ED MEDICATIONS Discontinued Medications Generic Name Dose Route Start Last Admin Trade Name Shirazq PRN Reason Stop Dose Admin Lactated Ringer's 1,000 mls @ 999 mls/hr 02/03/25 16:56 02/03/25 17:11 Lactated Ringer's 1000 Ml Bag IV 02/03/25 17:56 999 mls/hr .Q1H1M ONE Administration Iopamidol 75 ml 02/03/25 17:53 02/03/25 17:54 Iopamidol-370 (76%);100ml Bottle IV 02/03/25 17:54 75 ml ONCE ONE Administration Ketorolac Tromethamine 15 mg 02/03/25 16:56 02/03/25 17:11 Ketorolac 15mg/Ml Vial IV 02/03/25 16:57 15 mg ONCE ONE Administration Ondansetron HCl 4 mg 02/03/25 16:56 02/03/25 17:11 Ondansetron 4mg/2ml Vial IV 02/03/25 16:57 4 mg ONCE ONE Administration Sodium Chloride 10 ml 02/03/25 17:53 02/03/25 17:54 Sodium Chloride 0.9% 10ml Syr (Rad Only) IV 02/03/25 17:54 10 ml ONCE ONE Administration ORDERS Category Date Time Status CT abdomen pelvis w con Stat Cat Scan 02/03/25 16:56 Completed Acetone, Serum (Rapid) Stat Lab 02/03/25 16:55 Completed CBC w/Auto Diff [Complete Blood Count Auto Diff] Stat Lab 02/03/25 16:55 Completed CMP [Comprehensive Metabolic Panel] Stat Lab 02/03/25 16:55 Completed Lipase Stat Lab 02/03/25 16:55 Completed Magnesium Stat Lab 02/03/25 16:55 Completed Serum [HCG Qualitative, Serum] Stat Lab 02/03/25 16:55 Completed Urinalysis and Microscopic Stat Lab 02/03/25 16:49 Completed VBG [Venous Blood Gas] Stat RT 02/03/25 16:55 Completed ECG Data Tracing #1: I reviewed this ECG and interpreted as documented below: Normal sinus rhythm. No ST elevation or depression. QTc normal at 380. Medical Decision Narrative: Miracle Michael is a 29F with a history of gastric bypass surgery, type 2 diabetes, obesity, hypertension, hypothyroidism, PCOS who presents to the emergency department for 3 days of nonbilious nonbloody vomiting and diarrhea and upper abdominal pain. Patient states that she has had multiple episodes of vomiting and diarrhea over the course of the past 3 days without fever. She denies any chest pain. She denies any current shortness of breath. She states that she has been able to keep down a small amount of liquid today but has not taken any medications prior to arrival. She reports having gastric bypass surgery 1 year ago in [place] and is concerned it may be related to that or her gallbladder. She states that the abdominal pain is mostly on the left upper side. She denies any dysuria or hematuria. She states that she has not been checking her sugar but takes Jardiance. On arrival, patient is hypertensive blood pressure 143/106, heart rate 90, afebrile, oxygen saturation 99% on room air. Physical exam, as stated above, revealed overall nontoxic-appearing female in no distress. Abdomen is mildly tender in the epigastric, left upper quadrant and right upper quadrant without guarding or rebound. Abdomen is soft and not peritonitic. Cardiopulmonary exam is unremarkable. Differential diagnosis includes, but is not limited to: Viral gastroenteritis, acute pancreatitis, less likely to represent acute cholecystitis as patient's pain is mostly on the left upper side, however this is a consideration, DKA/euglycemic DKA, UTI, among others. The most morbid conditions were considered and workup was based on these. Workup in the emergency department included: CT abdomen pelvis with IV contrast, CBC with differential, CMP, serum test, urinalysis, serum acetone level, VBG with lactate, EKG. patient was treated with 1 L lactated ringer, 4 mg of IV Zofran and 50 mg of IV Toradol. Patient's workup shows normal white blood cell count, no anemia, platelets within normal limits, VBG without acidosis and lactate within normal limits. Electrolytes within normal limits. No MANSOOR. Glucose normal at 123. Magnesium normal at 1.7. Liver enzymes and bilirubin within normal limits. Lipase normal at 43. Negative test. Urinalysis with trace blood and white blood cells but no evidence of infection with negative nitrates and negative leukocyte esterase. CT imaging was interpreted by me personally. There is fluid within the bowel suggesting a diarrheal illness. There is hepatosplenomegaly but no other acute findings. See radiology report for details. On reassessment, patient remained in stable condition. I do feel that her symptomatology is likely a viral gastroenteritis and will improve over time. Recommending Zofran for nausea and to continue hydrating. Return precautions were given. She was instructed to follow-up with her primary care physician. All questions were answered. She demonstrated understanding and was in agreement this plan. She was then discharged from the emergency department in stable condition. Critical Care Critical Care Time Critical Care Time: No
[2025-02-03 17:00] VITALS: PULSE 101; O2SAT 97
[2025-02-03 17:03] LABS: Hematocrit 45.0 % (37.0-47.0); Hemoglobin 14.7 g/dL (12.2-16.2); Immature Granulocytes % 0.4 %; Lactate Venous 1.4 mmol/L (0.4-2.0); Mean Corpuscular HGB Conc 32.7 g/dL (31.8-35.4); Mean Corpuscular Hemoglobin 24.9 pg (27.0-31.2); Mean Corpuscular Volume 76.3 fl (81-99); Nucleated Red Blood Cells % 0 %; Platelet Count 174 K/mm3 (142-424); Red Blood Count 5.90 M/mm3 (4.20-5.40); Red Cell Distribution Width-SD 39.5 fL; VBG HCO3 24.5 mmol/L (23-30); VBG PCO2 43.6 mmol/L (35-51); VBG PH 7.37 mmol/L (7.31-7.41); VBG PO2 61.1 mmol/L (28-40); White Blood Count 9.4 K/mm3 (4.8-10.8)
[2025-02-03 17:04] LABS: Calcium Oxalate Crystals,Urine 3+ /lpf
--- NOTE | 2025-02-03 17:10 | ECG_ITS ---
APPROVED REPORT Exam: Resting ECG HR:93 bpm ECG Measurements Heart Rate 93 AXES VT 150 P 45 QRSd 100 QRS 54 QT 330 T 7 QTc 380 Conclusion SINUS RHYTHM NONSPECIFIC T-WAVE ABNORMALITY BORDERLINE ECG UNCONFIRMED REPORT Electronically signed by : VANDA NOBLE, 02/05/2025 02:50:59
[2025-02-03] MEDS: KETOROLAC 15MG/ML VIAL 15 MG IV (17:11)
[2025-02-03] MEDS: LACTATED RINGERS 1000ML 1,000 ML 999 ML IV (17:11)
[2025-02-03] MEDS: ONDANSETRON 4MG/2ML VIAL 4 MG IV (17:11)
[2025-02-03 17:13] LABS: Albumin Level 4.1 g/dl (3.5-5.0); Chloride 102 mmol/L (98-107); Potassium 4.1 mmoL/L (3.5-5.1); Sodium 138 mmol/L (136-145)
[2025-02-03 17:15] LABS: Alanine Aminotransferase 36 U/L (12-78); Blood Urea Nitrogen 8 mg/dl (7-17); Creatinine Clearance Estimated 122 mL/min (50-200); Creatinine,Serum 0.60 mg/dl (0.52-1.04); Estimated Glomerular Filt Rate 117 ml/min (>60); GFR (African American) 141 ML/MIN (>60)
[2025-02-03 17:16] LABS: Albumin/Globulin Ratio 1.5 (1.1-1.8); Alkaline Phosphatase 99 U/L (38-126); Anion Gap 13.1 mEq/L (5-15); Aspartate Amino Transferase 31 U/L (14-36); Bilirubin,Total 0.4 mg/dl (0.2-1.3); Calcium 9.0 mg/dl (8.4-10.2); Carbon Dioxide 27 mmol/L (22.0-30.0); Globulin 2.8 g/dL (1.3-3.2); Glucose 123 mg/dl (74-100); Lipase 43 U/L (23-300); Total Protein,Serum 6.9 g/dl (6.3-8.2)
[2025-02-03 17:17] LABS: Magnesium 1.7 mg/dl (1.6-2.3)
[2025-02-03 17:22] LABS: HCG Qualitative, Serum Negative (Negative)
[2025-02-03 17:25] LABS: Acetone, Serum (Rapid) None Detected (None Detect)
[2025-02-03] MEDS: IOPAMIDOL-370 (76%);100ML BOTTLE 75 ML IV (17:54)
[2025-02-03] MEDS: SODIUM CHLORIDE 0.9% 10ML SYR (RAD ONLY) 10 ML IV (17:54)
[2025-02-03 18:14] VITALS: BP 181/131; PULSE 90; O2SAT 98
[2025-02-03 19:50] VITALS: BP 156/131; PULSE 86; RESP 20; TEMP 36.8; O2SAT 96
== END 2025-02-03 19:56 | disposition home or self-care (01) ==
PROVIDERS: Emergency Provider Student in an Organized Health Care Education/Training Program
DX: R10.13 Epigastric pain (principal); R10.12 Left upper quadrant pain; R10.11 Right upper quadrant pain; R11.2 Nausea with vomiting, unspecified; R19.7 Diarrhea, unspecified; I10 Essential (primary) hypertension; E11.9 Type 2 diabetes mellitus without complications; E66.9 Obesity, unspecified; E03.9 Hypothyroidism, unspecified; Z79.84 Long term (current) use of oral hypoglycemic drugs
CPT/HCPCS: 74177; 80053; 81001; 82009; 82803; 83690; 83735; 84703; 85025; 93005; 96361; 96374; 96375; 99285; J1885; J2405; J7120; Q9967

== ENCOUNTER 2025-03-06 09:36 | Outpatient (CLI) | payer BC, SELFPAY ==
--- OUTSIDE RECORDS SUMMARY | 2025-01-07 08:15 | XMS_ITS | Encounter Summary ---
[facility] Address [address] [place] [address] Care Team Providers Care Fruit Dumper Name Role Phone Eric Freire MD Primary Care Provider [phone] Reason for Referral * Diagnostic Imaging (Routine) - Closed Specialty Diagnoses / Procedures Referred By Contact Referred To Contact Obstetrics and Gynecology Diagnoses PCOS (polycystic ovarian syndrome) Amenorrhea Procedures US Non-ob Transvaginal Ana Louis APRN [address] [facility] [address] [place] [address] Phone: tel: fax: [facility] [address] [facility] [address] [place] [address] Phone: tel: fax: Referral ID Status Reason Start Date Expiration Date Visits Re quested Visits Authorized [id number] Closed 01/07/2025 04/08/2026 1 1 Reason for Visit * Reason Comments Gynecologic Exam Encounter Details Date Type Department Care Team (Late st Contact Info) Description 01/07/2025 9:15 AM EDT Office Visit [facility] O[facility] [address] [address] Ana Louis APRN 17[address] [facility] [address] [place] [id number] Women's annual routine gynecological examination (Primary Dx); Pap test, as part of routine gynecological examination; PCOS (polycystic ovarian syndrome); Amenorrhea Social History Tobacco Use Types Packs/Day Years Used Date Smoking Tobacco: Never Smokeless Tobacco: Never Tobacco Cessation:Counseling Given: Not Answered Alcohol Use Standard Drinks/Week Comments Yes 1 [...] Sign Reading Time Taken Comments Blood Pressure 122/80 01/07/2025 9:07 AM EDT Pulse - - Temperature - - Respiratory Rate - - Oxygen Saturation - - Inhaled Oxygen Concentration - - Weight 127 kg (280 lb) 01/07/2025 9:07 AM EDT Height - - Body Mass Index 46.59 09/29/2021 11:07 AM EDT documented in this encounter Patient Instructions * Attachments The following attachments cannot be sent through Care Everywhere. * Preventive Care 21-39 Years Old Female (Surinamese) * Diet for Polycystic Ovary Syndrome (Surinamese) * Preparing for (Surinamese) * Thickening of the Uterus Lining (Endometrial Hyperplasia): What to Know (Surinamese) * Medroxyprogesterone Tablets (Surinamese) documented in this encounter Progress Notes * Ana Louis, GLORIA - 01/07/2025 9:15 AM EDT Images from the original note were not included. Gynecologic Annual Exam Note Gynecologic Exam Subjective HPI Miracle Michael is a 29 y.o. female who presents for annual well woman exam as a established patient. Since her last visit the patient underwent surgery for gastric bypass. No LMP recorded. Her last period was over a year ago due to PCOS. Marital Status: . She is sexually active.She has not had new partners.. STD testing recommendations have been explained to the patient and cesia whitaker does not desire STD testing. The patient would like to discuss the following complaints today: Her periods are irregular. She has not had a period in over a year. She is currently trying to conceive. She has intercourse approximately 1 times per week. Her past medical history is noted for: PCOS, irregular menses, and anxiety/depression.. She has not had a previous workup for infertility. Partner Status: Marital Status: . Her partner has not fathered children. His past medical history is notable for tobacco use. She has hx of gastric bypass surgery on 01/23/24. She has lost approx 85#. She is not dieting or exercising. 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 History of STD: no Last Pap : 07/11/20. Results: negative. HPV: negative. Last Completed Pap Smear This patient has no relevant Health Maintenance data. History of abnormal Pap smear: no Gardasil status:none Family history of uterine, colon, breast, or ovarian cancer: no Performs monthly Self-Breast Exam: no Exercises Regularly:no Feelings of Anxiety or Depression: yes - both Tobacco Usage?: No Current Outpatient Medications: amLODIPine (NORVASC) 5 MG tablet, TAKE 1 TABLET (5 MG) BY MOUTH DAILY, Disp: , Rfl: ARIPiprazole (ABILIFY) 15 MG tablet, Take 0.5 tablets by mouth 2 (Two) Times a Day., Disp: , Rfl: bisoprolol (ZEBeta) 5 MG tablet, TAKE 1 TABLET BY MOUTH DAILY. PLEASE CONTACT OFFICE FOR APPT., Disp: 90 tablet, Rfl: 1 busPIRone (BUSPAR) 15 MG tablet, Take 1 tablet by mouth 3 (Three) Times a Day., Disp: , Rfl: cholecalciferol (VITAMIN D3) 1.25 MG (07666 UT) capsule, Take 1 capsule by mouth Every 7 (Seven) Days., Disp: , Rfl: ferrous sulfate 325 (65 FE) MG tablet, Take 1 tablet by mouth Daily., Disp: , Rfl: 0 Jardiance 25 MG tablet tablet, Take 1 tablet by mouth Daily., Disp: , Rfl: sertraline (ZOLOFT) 50 MG tablet, TAKE 1/2 ORAL TAB DAILY X 1 WEEK AND THEN INCREASE TO 1 ORAL TAB DAILY, Disp: , Rfl: SYNTHROID 175 MCG tablet, Take 1 tablet by mouth Daily., Disp: , Rfl: 3 medroxyPROGESTERone (Provera) 10 MG tablet, Take 1 tablet by mouth Daily for 10 days., Disp: 10 tablet, Rfl: 0 Patient denies the need for medication refills today. OB History 0 Para 0 Term 0 0 AB 0 Living 0 SAB 0 IAB 0 Ectopic 0 Molar 0 Multiple 0 Live Births 0 Health Maintenance Topic Date Due DIABETIC FOOT EXAM Never done DIABETIC EYE EXAM Never done URINE MICROALBUMIN-CREATININE RATIO (uACR) Never done Hepatitis B (1 of 3 - 19+ 3-dose series) Never done Pneumococcal Vaccine 0-49 (1 of 2 - PCV) Never done HEPATITIS C SCREENING Never done ANNUAL PHYSICAL Never done Annual Gynecologic Pelvic and Breast Exam 09/30/2022 PAP SMEAR 07/12/2023 HEMOGLOBIN A1C 01/03/2025 INFLUENZA VACCINE 11/16/2024 TDAP/TD VACCINES (2 - Td or Tdap) 08/30/2025 Past Medical History: Diagnosis Date Anemia Anxiety Chronic ITP (idiopathic thrombocytopenia) Hypertension 07/02/2020 Hypothyroidism Hypothyroidism (acquired) 07/02/2020 Type 2 diabetes mellitus 07/02/2020 Past Surgical History: Procedure Laterality Date GASTRIC BYPASS 2023 OTHER SURGICAL HISTORY Arm Surgery SPINAL FUSION 2007 The additional following portions of the patient's history were reviewed and updated as appropriate: allergies, current medications, past family history, past medical history, past social history, past surgical history, and problem list. Review of Systems Respiratory: Negative. Negative for shortness of breath. Cardiovascular: Negative. Negative for chest pain. Gastrointestinal: Negative. Negative for abdominal distention, abdominal pain and constipation. Genitourinary: Positive for menstrual problem. Negative for breast discharge, breast lump, breast pain, dyspareunia, dysuria, pelvic pain, pelvic pressure, urinary incontinence, vaginal bleeding, vaginal discharge and vaginal pain. Psychiatric/Behavioral: Positive for depressed mood. Negative for suicidal ideas. The patient is nervous/anxious. Managed with medication. I have reviewed and agree with the HPI, ROS, and historical information as entered above. Ana Louis, KNOWLEDGE MANAGER Objective BP 122/80 Wt 127 kg (280 lb) No BMI 46.59 kg/m?? Physical Exam Vitals and nursing note reviewed. Exam conducted with a pickle water pump operator present. Constitutional: General: She is not in acute distress. Appearance: Normal appearance. She is well-developed. She is obese. She is not ill-appearing or toxic-appearing. HENT: Head: Normocephalic and atraumatic. Pulmonary: Effort: Pulmonary effort is normal. No retractions. Chest: Chest wall: No mass. Breasts: Breasts are symmetrical. Right: Normal. No mass, nipple discharge, skin change or tenderness. Left: Normal. No mass, nipple discharge, skin change or tenderness. Abdominal: Palpations: Abdomen is soft. Abdomen is not rigid. There is no mass. Tenderness: There is no abdominal tenderness. There is no guarding or rebound. Hernia: No hernia is present. There is no hernia in the left inguinal area or right inguinal area. Genitourinary: General: Normal vulva. Labia: Right: No rash, tenderness or lesion. Left: No rash, tenderness or lesion. Vagina: Normal. No vaginal discharge, erythema, tenderness, bleeding or lesions. Cervix: No cervical motion tenderness, discharge, friability, lesion, erythema or cervical bleeding. Uterus: Normal. Not enlarged, not fixed and not tender. Adnexa: Right adnexa normal and left adnexa normal. Right: No mass or tenderness. Left: No mass or tenderness. Rectum: No external hemorrhoid. Lymphadenopathy: Upper Body: Right upper body: No supraclavicular or axillary adenopathy. Left upper body: No supraclavicular or axillary adenopathy. Neurological: Mental Status: She is alert and oriented to person, place, and time. Psychiatric: Mood and Affect: Mood normal. Behavior: Behavior normal. Assessment and Plan Problem List Items Addressed This Visit PCOS (polycystic ovarian syndrome) Overview Diagnosed with oligomenorrhea, and elevated testosterone. Treated with progestin only pills 01/07/25- No longer taking POP. She is TTC. Labs under media performed 12/28/24 reviewed. Thyroid labs nml. A1C 7%, CBC/CMP reviewed. No lipid panel. Instructed to fast @ next appt for lipid panel. Amenorrhea > 1 yr. Discussed risk for hyperplasia/carcinoma. Provera 10 mg x 10 days prescribed. Denies IC within the past 2 weeks. Instructed to call if no withdrawal bleed 2 weeks after last dose. Will increase to 20 mg x 10 days. Recommend exercise, healthy eating, and BG control to induce ovulation naturally. She will return for US to evaluate endometrial lining and endometrial biopsy if indicated. Discussed need for SA for evaluate spouse's sperm. Will discuss further at next visit. Relevant Medications SYNTHROID 175 MCG tablet Jardiance 25 MG tablet tablet medroxyPROGESTERone (Provera) 10 MG tablet Other Relevant Orders US Non-ob Transvaginal Other Visit Diagnoses Women's annual routine gynecological examination - Primary Relevant Medications amLODIPine (NORVASC) 5 MG tablet medroxyPROGESTERone (Provera) 10 MG tablet Other Relevant Orders LIQUID-BASED PAP SMEAR WITH HPV GENOTYPING REGARDLESS OF INTERPRETATION (JAYDEN,COR,MAD) Pap test, as part of routine gynecological examination Relevant Medications amLODIPine (NORVASC) 5 MG tablet medroxyPROGESTERone (Provera) 10 MG tablet Other Relevant Orders LIQUID-BASED PAP SMEAR WITH HPV GENOTYPING REGARDLESS OF INTERPRETATION (JAYDEN,COR,MAD) Amenorrhea Relevant Medications amLODIPine (NORVASC) 5 MG tablet medroxyPROGESTERone (Provera) 10 MG tablet Other Relevant Orders Estradiol FSH & LH Testosterone - total HCG, B-subunit, Quantitative US Non-ob Transvaginal 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 Reviewed pap guidelines. Pap pending. Amenorrhea secondary to PCOS. See plan above. Hx of elevated testosterone. HCG, LH, FSH, estradiol,and total testosterone pending. Lipid panel next visit. Reviewed monthly self breast exams. Instructed to call with lumps, pain, or breast discharge. Reviewed BMI, healthy eating, exercise, and weight loss as preventative health measures. Reviewed exercise as a preventative health measures. Reccommended Flu Vaccine in Fall of each year. Preventative care, PCOS, preparing for , thickening of uterus, and Provera education included in patient instructions. Return in about 24 days (around 01/31/2025) for anemorrhea, Ultrasound. Ana Louis APRN 01/07/2025 documented in this encounter Plan of Treatment Upcoming Encounters Date Type Department Care Team (Late st Contact Info) Description 08/07/2025 9:30 AM EDT Office Visit [facility] [address] [place] [address] Shasha Blair MD [address] [place] [address] documented as of this encounter Procedures Procedure Name Priority Date/Time Associated Diagnosis Comments LIQUID-BASED PAP SMEAR WITH HPV GENOTYPING REGARDLESS OF INTERPRETATION, [facility] (JAYDEN,COR,MAD) Routine 01/07/2025 1:59 PM EDT Women's annual routine gynecological examination Pap test, as part of routine gynecological examination FSH AND LH Routine 01/07/2025 9:53 AM EDT Amenorrhea HCG, B-SUBUNIT, QUANTITATIVE Routine 01/07/2025 9:53 AM EDT Amenorrhea ESTRADIOL Routine 01/07/2025 9:53 AM EDT Amenorrhea TESTOSTERONE Routine 01/07/2025 9:53 AM EDT Amenorrhea documented in this encounter Results * US Non-ob Transvaginal (02/06/2025 8:18 AM EDT) Anatomical Region Laterality Modality Body Ultrasound 02/06/2025 9:02 AM EDT Narrative 02/06/2025 9:05 AM EDT PAT NAME: MIRACLE MICHAEL [facility] REC#: [id number] DA: 1995 PAT GEND: F PAT TYPE: O EXAM FOREIGN: [id number] REF PHYS ANA LOUIS Indication ======== Amenorrhea Comparison Studies There are no relevant prior studies to which this study is being compared Method ======= Voluson E6, Transvaginal ultrasound examination, Color Doppler flow performed, 3D ultrasound examination. View: Adequate view Uterus ====== Uterus: Visualized Uterus position: Anteverted Description of uterine malformations: none Myometrium: Homogeneous Endometrium: Uniform Cervix details: nabothian cyst Uterus long 70 mm Uterus ap 30 mm Uterus tr 37 mm Uterus Vol 40.2 cm Endometrial thickness, total 5.8 mm Right Ovary Rt ovary: Visualized Rt ovary D1 29.1 mm Rt ovary D2 26.9 mm Rt ovary D3 23.5 mm Rt ovary Vol 9.6 cm Rt ovary other findings: suggestive of PCOS Left Ovary ========= Lt ovary: Visualized Lt ovary D1 30.5 mm Lt ovary D2 21.0 mm Lt ovary D3 17.00 mm Lt ovary Vol 5.7 cm Lt ovary other findings: suggestive of PCOS Cul de Sac Normal. No free fluid visualized Impression Uterus normal size and shape with endometrial thickness of 5.8 mm. Bilateral ovaries appear Polycystic Recommendation follow-up as clinically indicated. Director Of Global Marketing: MILLER SOMMERAR Physician: Shasha Blair MD, FACOG Electronically signed by: Shasha Blair MD, FACOG at: 09:05 Procedure Note Shasha Blair MD - 02/06/2025 PAT NAME: MIRACLE MICHAEL MED REC#: [id number] DA: 1995 PAT GEND: F PAT TYPE: O EXAM FOREIGN: [id number] REF PHYS ANA LOUIS Indication ======== Amenorrhea Comparison Studies There are no relevant prior studies to which this study is beingcompared Method ======= Voluson E6, Transvaginal ultrasound examination, Color Doppler flowperformed, 3D ultrasound examination. View: Adequate view Uterus ====== Uterus:Visualized Uterus position:Anteverted Description of uterine malformations:none Myometrium:Homogeneous Endometrium:Uniform Cervix details:nabothian cyst Uterus long70 mm Uterus ap30 mm Uterus tr37 mm Uterus Vol40.2 cm Endometrial thickness, total5.8 mm Right Ovary Rt ovary:Visualized Rt ovary D129.1 mm Rt ovary D226.9 mm Rt ovary D323.5 mm Rt ovary Vol9.6 cm Rt ovary other findings:suggestive of PCOS Left Ovary ========= Lt ovary:Visualized Lt ovary D130.5 mm Lt ovary D221.0 mm Lt ovary D317.00 mm Lt ovary Vol5.7 cm Lt ovary other findings:suggestive of PCOS Cul de Sac Normal. No free fluid visualized Impression Uterus normal size and shape with endometrial thickness of 5.8 mm.Bilateral ovaries appear Polycystic Recommendation follow-up as clinically indicated. Director Of Global Marketing: FAHAD SOMMER Physician: Shasha Blair MD, FACOG Electronically signed by: Shasha Blair MD, FACOG at: 09:05 us Ana N Emily KNOWLEDGE MANAGER IMG US ORDERABLES Final Re sult * LIQUID-BASED PAP SMEAR WITH HPV GENOTYPING REGARDLESS OF INTERPRETATION (JAYDEN,COR,MAD) (01/07/2025 1:59 PM EDT) Reference Lab Report FINAL [facility] GLUER AND SLICER CYTOLOGY REPORT ---- DIAGNOSIS: Negative for intraepithelial lesion or malignancy Multiple factors can influence accuracy of Pap tests; therefore, screening at regular intervals is necessary for early cancer detection. C-Comments Benign cellular changes associated with inflammation are present. ---- Adequacy SATISFACTORY FOR EVALUATION Transformation zone is present. Source CERVICAL/ENDOCERVI JAYLA LMP None provided CLINICAL HISTORY: Routine Irregular periods, Polycystic ovarian syndrome, Amenorrhea The pap smear is a screening test with limited sensitivity, and false negative tests results can occur. ThinPrep Pap imagined by [employer] (AI assisted system). Screened by ELISA HOGAN (ASCP) Aptima HPV: Negative The Aptima HPV assay is an in vitro nucleic acid amplification test for the qualitative detection of E6/E7 viral messenger RNA from 14 high risk types of HPV in cervical specimens. The high risk HPV types detected include: 16, 18, 31, 33, 35, 39, 45, 51, 52, 56, 58, 59, 66 68 01/08/2025 9:12 AM EDT [facility] ThinPrep Vial Collection / Unknown 01/07/2025 1:59 PM EDT 01/07/2025 1:59 PM EDT us Ana Louis KNOWLEDGE MANAGER PATHOLOGY/CYTOLOGY ORDERAB LES Final Result [facility]
[address] [place] [address], * HCG, B-subunit, Quantitative (01/07/2025 9:53 AM EDT) HCG Quantitative <1.00 mIU/mL [facility] Comment: HCG Ranges by Gestational Age Females - non- premenopausal </= 1mIU/mL HCG Females - postmenopausal </= 7mIU/mL HCG 3 Weeks 5.4 - 72 mIU/mL 4 Weeks 10.2 - 708 mIU/mL 5 Weeks 217 - 8,245 mIU/mL 6 Weeks 152 - 32,177 mIU/mL 7 Weeks 4,059 - 153,767 mIU/mL 8 Weeks 31,366 - 149,094 mIU/mL 9 Weeks 59,109 - 135,901 mIU/mL 10 Weeks 44,186 - 170,409 mIU/mL 12 Weeks 27,107 - 201,615 mIU/mL 14 Weeks 24,302 - 93,646 mIU/mL 15 Weeks 12,540 - 69,747 mIU/mL 16 Weeks 8,904 - 55,332 mIU/mL 17 Weeks 8,240 - 51,793 mIU/mL 18 Weeks 9,649 - 55,271 mIU/mL Blood 01/07/2025 9:53 AM EDT 01/07/2025 Narrative [facility] ([facility]) - 01/08/2025 3:35 AM EDT Performed at: [address] [place] [id number] Registrar Museum: Hieu Go MD, Phone: [phone] Ana Louis KNOWLEDGE MANAGER LAB BLOOD ORDERABLES Final Result Performing Organization Address City/[facility]/ZIP Co de Phone Number [facility] (AMBULATORY) [address] [place] [address], [place] [phone] [facility] [address] [place] [address], [place] [phone] * Testosterone - total (01/07/2025 9:53 AM EDT) Testosterone, Total 14 8 - 60 ng/dL [facility] Blood 01/07/2025 9:53 AM EDT 01/07/2025 Narrative [facility] [employer] [facility] ([facility]BULATORY) - 01/08/2025 4:36 PM EDT Performed at: [address] [place] [id number] Registrar Museum: Nazario Ortiz PhD, Phone: [phone] Ana Louis KNOWLEDGE MANAGER LAB BLOOD ORDERABLES Final Result Performing Organization Address [facility] Co de Phone Number [facility] (AMBULATORY) [address] [place] [address], [place] [phone] [facility] [address] [place] [address], [place] [phone] * FSH & LH (01/07/2025 9:53 AM EDT) LH 7.6 mIU/mL [facility] Comment: Adult Female Range Follicular phase 2.4 - 12.6 Ovulation phase 14.0 - 95.6 Luteal phase 1.0 - 11.4 Postmenopausal 7.7 - 58.5 FSH 5.9 mIU/mL [facility] Comment: Adult Female Range Follicular phase 3.5 - 12.5 Ovulation phase 4.7 - 21.5 Luteal phase 1.7 - 7.7 Postmenopausal 25.8 - 134.8 Blood 01/07/2025 9:53 AM EDT 01/07/2025 Narrative [facility] [employer] [facility] (AMBULATORY) - 01/08/2025 4:36 PM EDT Performed at: - [facility] [address] [place], [place] [id number] Registrar Museum: Nazario Ortiz PhD, Phone: [phone] Ana Louis KNOWLEDGE MANAGER LAB BLOOD ORDERABLES Final Result Performing Organization Address [facility]/ZIP Co de Phone Number [facility] (AMBULATORY) [address] [place] [address], [place] [phone] [facility] [address] [place] [address], [place] [phone] * Estradiol (01/07/2025 9:53 AM EDT) [facility] Estradiol 25.3 pg/mL [facility] Comment: Adult Female Range Follicular phase 12.5 - 166.0 Ovulation phase 85.8 - 498.0 Luteal phase 43.8 - 211.0 Postmenopausal <6.0 - 54.7 1st trimester 215.0 - >4300.0 Edmund ECLIA methodology Blood 01/07/2025 9:53 AM EDT 01/07/2025 Narrative [facility] ([facility]) - 01/08/2025 4:36 PM EDT Performed at: - [facility] [address] [place], [place] [id number] Registrar Museum: Nazario Ortiz PhD, Phone: [phone] Ana Louis APRN LAB BLOOD ORDERABLES Final Result Performing Organization Address [facility] Co de Phone Number [facility] (AMBULATORY) [address] [place] [address], [place] [phone] [facility] [address] [place] [address], [place] [phone] documented in this encounter Visit Diagnoses Diagnosis Women's annual routine gynecological examination- Primary Pap test, as part of routine gynecological examination Screening for malignant neoplasm of the cervix PCOS (polycystic ovarian syndrome) Polycystic ovaries Amenorrhea Absence of menstruation PCOS (polycystic ovarian syndrome) Polycystic ovaries Amenorrhea Absence of menstruation documented in this encounter Care Teams Fruit Dumper Relationship Specialty Start Date End Date Eric Freire MD [address] [place] [address] [place] [address] PCP - General Family Medicine 04/16/24 documented as of this encounter
--- OUTSIDE RECORDS SUMMARY | 2025-02-06 07:00 | XMS_ITS | Encounter Summary ---
[facility] Organization [facility] Address [address] [place] [address] Care Team Providers Care China Painter Name Role Phone Eric Freire MD Primary Care Provider [phone]- [phone] Reason for Visit * Diagnostic Imaging (Routine) - Closed Specialty Diagnoses / Procedures Referred By Contact Referred To Contact Obstetrics and Gynecology Diagnoses PCOS (polycystic ovarian syndrome) Amenorrhea Procedures US Non-ob Transvaginal Ana Louis, [facility] [address] [address] Phone: tel: fax: [facility] [address] [address] Phone: tel: fax: Referral ID Status Reason Start Date Expiration Date Visits Re quested Visits Authorized [id number] Closed 01/07/2025 04/08/2026 1 1 Encounter Details Date Type Department Care Team (Latest Contact Info) Description 02/06/2025 8:00 AM EDT Ancillary Procedure [facility] [address] [address] PCOS (polycystic ovarian syndrome); Amenorrhea Social History [...] Description 08/07/2025 9:30 AM EDT Office Visit [facility] [address] [facility] [address] [place] [address] Shasha Blair MD [address] [facility] [address] [place] [address] documented as of this encounter Procedures Procedure Name Priority Date/Time Associated Diagnosis Comments US NON-OB TRANSVAGINAL Routine 02/06/2025 8:18 AM EDT PCOS (polycystic ovarian syndrome) Amenorrhea documented in this encounter Results * US Non-ob Transvaginal (02/06/2025 8:18 AM EDT) Anatomical Region Laterality Modality Body Ultrasound 02/06/2025 9:02 AM EDT Narrative 02/06/2025 9:05 AM EDT PAT NAME: MIRACLE MICHAEL MED REC#: [id number] DA: 1995 PAT GEND: F PAT TYPE: O EXAM FOREIGN: [id number] REF PHYS ANA LOUIS Indication ======== Amenorrhea [...] appear Polycystic Recommendation follow-up as clinically indicated. Print Binding Worker: FAHAD SOMMER Physician: Shasha Blair MD, FACOG Electronically signed by: Shasha Blair MD, FACOG at: 09:05 Procedure Note Shasha Blair MD - 02/06/2025 PAT NAME: MIRACLE MICHAEL MED REC#: [id number] DA: 1995 PAT GEND: F PAT TYPE: O EXAM FOREIGN: [id number] REF PHYS ANA LOUIS Indication ======== Amenorrhea [...] appear Polycystic Recommendation follow-up as clinically indicated. Print Binding Worker: FAHAD SOMMER Physician: Shasha Blair MD, FACOG Electronically signed by: Shasha Blair MD, FACOG at: 09:05 us Ana N Fishback [facility] IMG US ORDERABLES Final Re sult documented in this encounter Visit Diagnoses Diagnosis PCOS (polycystic ovarian syndrome) Polycystic ovaries Amenorrhea Absence of menstruation documented in this encounter Care Teams China Painter Relationship Specialty Start Date End Date Eric Freire MD [address] [place] [address] [place] [address] PCP - General Family Medicine 04/16/24 documented as of this encounter
--- OUTSIDE RECORDS SUMMARY | 2025-02-06 07:30 | XMS_ITS | Encounter Summary ---
[facility] Address [address] [place] [address] Care Team Providers Care Marine Resource Economist Name Role Phone Eric Freire MD Primary Care Provider +1- [phone] Reason for Visit * Reason Comments Follow-up USG/Amenorrhea/Preco nception counseling Encounter Details Date Type Department Care Team (Late st Contact Info) Description 02/06/2025 8:30 AM EDT Office Visit [facility] [address] [address] Shasha Blair MD [address] [place] [address] PCOS (polycystic ovarian syndrome) (Primary Dx) Social History Tobacco Use Types Packs/Day Years [...] Sign Reading Time Taken Comments Blood Pressure 128/84 02/06/2025 8:24 AM EDT Pulse - - Temperature - - Respiratory Rate - - Oxygen Saturation - - Inhaled Oxygen Concentration - - Weight 124 kg (272 lb 9.6 oz) 02/06/2025 8:24 AM EDT Height 165.1 cm (5' 5 ) 02/06/2025 8:24 AM EDT Body Mass Index 45.36 02/06/2025 8:24 AM EDT documented in this encounter Progress Notes * Shasha Blair MD - 02/06/2025 8:30 AM EDT Images from the original note were not included. Chief Complaint Patient presents with Follow-up USG/Amenorrhea/Preconception counseling CC: Amenorrhea CC: Preconception counseling Subjective HPI Miracle Michael is a 29 y.o. female, , her last LMP was Patient's last menstrual period was 01/05/2025.. She presents for a follow up evaluation of Amenorrhea. The patient was last seen 1 month ago by Mely Diaz APRN. At that time she reported amenorrhea and infertility. She had labs drawn that were normal. The plan was take Provera to induce period and follow up today with ultrasound. Since the last visit the patient reports she had a period after taking Provera that lasted 6-7days. Her flow was moderate to heavy.. She states that her periods have been absent for the past year. She was diagnosed at our office in 2020 with PCOS. She has taken Metformin in the past without im provement. She reports having gastric bypass surgery last year. She has lost a total of 94 pounds. She would also like to discuss pre-conception counseling. She has been actively trying to conceive for the past 6 years. She denies ever being in the past. Her has not fathered any children. Her has a history of elevated cholesterol, anxiety, and depression. He has not had a semen analysis. Patient denies taken ovulation test due to not having a period. She denies ever taking infertility medication. The patient reports additional symptoms as none. US done today: Yes. Findings showed Uterus normal size and shape with endometrial thickness of 5.8 mm. Bilateral ovaries appear Polycystic. I have personally evaluated the U/S and agree with the findings. Shasha Blair MD Additional OPEN CLAIMS REPRESENTATIVE History Last Pap : Last Completed Pap Smear Upcoming PAP SMEAR (Every 3 Years) Next due on 01/08/2028 01/07/2025 LIQUID-BASED PAP SMEAR WITH HPV GENOTYPING REGARDLESS OF INTERPRETATION (JAYDEN,COR,MAD) 07/11/2020 Pap IG, HPV-hr 06/25/2019 Done History of abnormal Pap smear: no Tobacco Usage?: No Current Outpatient Medications: amLODIPine [...] , Rfl: cholecalciferol (VITAMIN D3) 1.25 MG (51640 UT) capsule, Take 1 capsule by mouth [...] by mouth Daily., Disp: , Rfl: 3 norethindrone (MICRONOR) 0.35 MG tablet, Take 1 tablet by mouth Daily., Disp: 28 tablet, Rfl: 12 Past Medical History: Diagnosis Date Anemia Anxiety Chronic ITP (idiopathic thrombocytopenia) Hypertension 07/02/2020 Hypothyroidism Hypothyroidism (acquired) 07/02/2020 Type 2 diabetes mellitus 07/02/2020 Past Surgical History: Procedure Laterality Date GASTRIC BYPASS 01/23/2024 OTHER SURGICAL HISTORY Arm Surgery SPINAL FUSION 2007 The additional following portions of the patient's history were reviewed and updated as appropriate: allergies, current medications, past family history, past medical history, past social history, past surgical history, and problem list. Review of Systems Constitutional: Negative. HENT: Negative. Eyes: Negative. Respiratory: Negative. Cardiovascular: Negative. Gastrointestinal: Negative. Endocrine: Negative. Genitourinary: Negative. Positive for amenorrhea. Musculoskeletal: Negative. Skin: Negative. Allergic/Immunologic: Negative. Neurological: Negative. Hematological: Negative. Psychiatric/Behavioral: Negative. I have reviewed and agree with the HPI, ROS, and historical information as entered above. Shasha Blair MD Objective BP 128/84 Ht 165.1 cm (65 ) Wt 124 kg (272 lb 9.6 oz) LMP 01/05/2025 BMI 45.36 kg/m?? Physical Exam Vitals and nursing note reviewed. Constitutional: Appearance: Normal appearance. She is well-developed. HENT: Head: Normocephalic and atraumatic. Pulmonary: Effort: Pulmonary effort is normal. Breath sounds: Normal breath sounds. Abdominal: General: There is no distension. Palpations: Abdomen is soft. Abdomen is not rigid. There is no mass. Tenderness: There is no abdominal tenderness. There is no guarding or rebound. Musculoskeletal: Cervical back: Normal range of motion. Skin: General: Skin is warm and dry. Neurological: Mental Status: She is alert and oriented to person, place, and time. Psychiatric: Mood and Affect: Mood normal. Behavior: Behavior normal. Assessment & Plan Assessment Problem List Items Addressed This Visit Endocrine and Metabolic PCOS (polycystic ovarian syndrome) - Primary Overview Diagnosed with oligomenorrhea, and elevated testosterone. [...] sperm. Will discuss further at next visit. 02/06/2025-patient had menstrual cycle after Provera. Endometrial stripe 5 mm today. Discussed trying to conceive at this time. Patient with a BMI of 45. Hemoglobin A1c is at 7. Although this is muchimproved, we discussed leaning into her weight loss journey and continuing at this time. We discussed the goal of BMI of 35 before trying to conceive. Patient is not exercising. We discussed the importance of this and focusing on protein and green veggies at this time. We will put her on a progestin only pill until she is ready to try to conceive. Relevant Medications SYNTHROID 175 MCG tablet Jardiance 25 MG tablet tablet norethindrone (MICRONOR) 0.35 MG tablet Plan Call for heavy bleeding Medication(s) Ordered Discussed options both medical and surgical. Discussed potential etiologies and treatment options. Return in about 6 months (around 08/07/2025) for Next scheduled follow up. Total time spent today with Miracle was 30 minutes (level 4). Off this time, 80% was spent [id number] time coordinating care, answering her questions and counseling regarding exercise in , nutrition in , weight gain in , work and travel restrictions during , listof OTC medications acceptable in and call coverage groups, healthy eating habits, and weight loss and trying to conceive. This did not include time associated with reading ultrasound. Shasha Blair MD 02/06/2025 documented in this encounter Plan of Treatment Upcoming Encounters Date Type Department Care Team (Late st Contact Info) Description 08/07/2025 9:30 AM EDT Office Visit [facility] [address] [address] Shasha Blair MD [address] [address] documented as of this encounter Visit Diagnoses Diagnosis PCOS (polycystic ovarian syndrome)- Primary Polycystic ovaries documented in this encounter Care Teams Marine Resource Economist Relationship Specialty Start Date End Date Eric Freire MD [address] [place] [address] PCP - General Family Medicine 04/16/24 documented as of this encounter
--- OUTSIDE RECORDS SUMMARY | 2025-03-07 12:10 | XMS_ITS | Encounter Summary ---
[facility] Address [address] [place] [address] Care Team Providers Care Pricing Consultant Name Role Phone Eric Freire MD Primary Care Provider +1- [phone] Reason for Visit * Reason Comments Med Refill Encounter Details Date Type Department Care Team (Late st Contact Info) Description 01/27/2020 Refill [facility] [address] [facility] [address] [place] [address] Zafar Lugo MD [address] [facility] [address] [place] [address] Med Refill Social History Tobacco Use Types [...] Description 08/07/2025 9:30 AM EDT Office Visit [facility] [address] [facility] [address] [place] [phone] Shasha Blair MD [address] [facility] [address] [place] [address] documented as of this encounter Visit Diagnoses Not on filedocumented in this encounter Care Teams Pricing Consultant Relationship Specialty Start Date End Date Eric Freire MD [address] [place] [address] PCP - General Family Medicine 04/16/24 documented as of this encounter
--- OUTSIDE RECORDS SUMMARY | 2025-03-07 12:10 | XMS_ITS | Clinical Summary ---
Author Organization [facility] Address [address] [place] [address] Care Team Providers Care Automation And Controls Manager Name Role Phone Eric Freire MD Primary [...] day. 3 Active Blood Glucose Monitoring Suppl ([employer]Touch Verio Flex System) w/Device kit USE DIRECTED FOR DIABETES 3 Active busPIRone (Buspar) 15 MG tablet Take 1 tablet (15 mg) by mouth. 3 Active ferrous sulfate 325 (65 Fe) MG EC tablet Take 1 tablet (325 mg) by mouth 1 (one) time each day. 3 Active Lancets (OneTouch Delica Plus Lowvau30O) misc USE DIRECTED FOR DIABETES 3 Active [...] mellitus with other specified complication, unspecified whether senior living insulin use Apply to effected area daily for 2 weeks 60 g 1 4 Active Additional Information Patient not taking.Reported on 07/03/2024 Continuous Blood Gluc Creeler (FreeStyle Mariam 3 Clarion) deviceIndication s:Type 2 diabetes mellitus with other specified complication, unspecified whether weaver hand loom insulin use 1 Device 4 (four) times [...] mellitus with other specified complication, unspecified whether weaver hand loom insulin use Take 2 tablets (1,000 mg) [...] mellitus with other specified complication, unspecified whether senior living insulin use Instructed to inject 10 units [...] Vaccines (1 - 3-dose SCDM series) 2020 [id number] Vaccine (3 - Pfizer risk series) 08/06/2020 [...] mellitus with other specified complication, unspecified whether weaver hand loom insulin use ([facility]) from Last 3 Months or Most Recently Relevant to Health Maintenance Results * POCT glycosylated hemoglobin (Hb A1C) (07/03/2024 4:21 PM EDT) POCT Hemoglobin A1C 7.9 <5.7% Non-Diabe tic % [facility] Kit Lot Number [id number] [facility] Kit Expiration Date 02/15/2026 [facility] Blood Venous blood specimen / Unknown 07/03/2024 4:21 PM EDT Rose Kraus INDUSTRIAL ORGANIZATIONAL PSYCHOLOGIST POINT OF CARE TEST ENTER/JEFFREY T ORDERABLES Final Result [facility] [address] [place] [phone] from Last 3 Months or Most Recently Relevant to Health Maintenance Insurance [employer] Care Teams Automation And Controls Manager Relationship Specialty Start Date End Date Eric Freire MD PCP - General Family Medicine 01/27/23
--- OUTSIDE RECORDS SUMMARY | 2025-03-07 12:10 | XMS_ITS | Encounter Summary ---
Author Organization [facility] Address [address] [place] [address] Care Team Providers Care Front End Mechanic Name Role Phone Eric Freire MD Primary Care Provider +1- [phone] Encounter Details Date Type Department Care Team (Latest Contact Info) Description 02/06/2025 Travel Social History Tobacco Use Types Packs/Day [...] Visit [facility] [address] [address] Shasha Blair MD [address] [address] documented as of this encounter Visit Diagnoses Not on filedocumented in this encounter Care Teams Front End Mechanic Relationship Specialty Start Date End Date Eric Freire MD [address] [place] [address] PCP - General Family Medicine 04/16/24 documented as of this encounter
--- OUTSIDE RECORDS SUMMARY | 2025-03-07 12:11 | XMS_ITS | Encounter Summary ---
Author Organization [facility] Address [address] [place] [address] Care Team Providers Care Steamer Gum Candy Name Role Phone Eric Freire MD Primary Care Provider +1- [phone] Encounter Details Date Type Department Care Team (Late Contact Info) Description 01/08/2025 Results Follow-Up [facility] O[facility]YN [address] [address] Mely Diaz APRN [address] [facility] [address] [place] [phone] Social History Tobacco Use Types Packs/Day Years [...] Description 08/07/2025 9:30 AM EDT Office Visit [facility] [address] [address] Shasha Blair MD [address] [address] documented as of this encounter Visit Diagnoses Not on filedocumented in this encounter Care Teams Steamer Gum Candy Relationship Specialty Start Date End Date Eric Freire MD [address] [place] [address] PCP - General Family Medicine 04/16/24 documented as of this encounter
--- OUTSIDE RECORDS SUMMARY | 2025-03-07 12:11 | XMS_ITS | Clinical Summary ---
Author Organization [facility] Address [address] [place] [address] Care Team Providers Care Garbage Pick Up Worker Name Role Phone Eric Freire MD Primary Care Provider +1- [phone] Allergies Active Allergy Reactions Criticality Noted Date Comments Morphine Hives Medium 12/06/2018 Rituximab Anaphylaxis High 01/12/2021 Pt states my throat closes, I get a fever. Medications ferrous sulfate 325 (65 FE) MG tablet Take 1 tablet by mouth Daily. 0 11/07/2018 Active SYNTHROID 175 MCG tablet Take 1 tablet by mouth Daily. 3 11/29/2018 Active bisoprolol (ZEBeta) 5 MG tablet TAKE 1 TABLET BY MOUTH DAILY. PLEASE CONTACT OFFICE FOR APPT. 90 tablet 1 02/16/2021 Active ARIPiprazole (ABILIFY) 15 MG tablet Take 0.5 tablets by mouth 2 (Two) Times a Day. 08/31/2021 Active busPIRone (BUSPAR) 15 MG tablet Take 1 tablet by mouth 3 (Three) Times a Day. 08/24/2021 Active sertraline (ZOLOFT) 50 MG tablet TAKE 1/2 ORAL TAB DAILY X 1 WEEK AND THEN INCREASE TO 1 ORAL TAB DAILY 09/16/2021 Active amLODIPine (NORVASC) 5 MG tablet TAKE 1 TABLET (5 MG) BY MOUTH DAILY Active cholecalciferol (VITAMIN D3) 1.25 MG (87909 UT) capsule Take 1 capsule by mouth Every 7 (Seven) Days. Active Jardiance 25 MG tablet tablet Take 1 tablet by mouth Daily. Active norethindrone (MICRONOR) 0.35 MG tabletIndicatio ns:PCOS (polycystic ovarian syndrome) Take 1 tablet by mouth Daily. 28 tablet 12 02/06/2025 02/07/20 26 Active Active Problems Problem Noted Date Diagnosed Date Encounter for surveillance of contraceptive pill s 07/03/2020 Overview (01/07/2025): Continue Micronor for now. 01/07/2025- No longer taking. TTC. PCOS (polycystic ovarian syndrome) 07/02/2020 Overview (02/06/2025): Diagnosed with oligomenorrhea, and elevated testosterone. Treated [...] A1c is at 7. Although this is much improved, we discussed leaning into her weight loss journey and continuing at this time. We discussed the goal of BMI of 35 before trying to conceive. Patient is not exercising. We discussed the importance of this and focusing on protein and green veggies at this time. We will put her on a progestin only pill until she is ready to try to conceive. Type 2 diabetes mellitus 07/02/2020 Hypertension 07/02/2020 [...] Encounters Date Type Department Care Team Description 02/06/2025 8:30 AM EDT Office Visit [facility] [address] [facility] [address] [place] [phone] Shasha Blair MD PCOS (polycystic ovarian syndrome) (Primary Dx) 02/06/2025 8:00 AM EDT Ancillary Procedure [facility] [address] [facility] [address] [place] [phone] PCOS (polycystic ovarian syndrome); Amenorrhea 02/06/2025 Travel 01/08/2025 Results Follow-Up [facility] [address] [facility] [address] [place] [phone] Ana Louis APRN 01/07/2025 9:15 AM EDT Office Visit [facility] [address] [facility] [address] [place] [phone] Ana Louis, OIL AND GAS SUPERINTENDENT Women's annual routine gynecological examination (Primary Dx); [...] Pressure 128/84 02/06/2025 8:24 AM EDT Pulse 96 07/09/2019 9:23 AM EDT Temperature 36.6 C (97.8 F) 07/03/2020 3:02 PM EDT Respiratory Rate 12 12/06/2018 6:48 PM EDT Oxygen Saturation 98% 12/06/2018 6:48 PM EDT Inhaled Oxygen Concentration - - Weight 124 kg (272 lb 9.6 oz) 02/06/2025 8:24 AM EDT Height 165.1 cm (5' 5 ) 02/06/2025 8:24 AM EDT Body Mass Index 45.36 02/06/2025 8:24 AM EDT Plan of Treatment Upcoming Encounters Date Type Department Care Team (Late st Contact Info) Description 08/07/2025 9:30 AM EDT Office Visit [facility] O[facility]YN [address] [address] Shasha Blair MD [address] [address] Health Maintenance Due Date Last Done Comments [...] AM EDT PCOS (polycystic ovarian syndrome) Amenorrhea LIQUID-BASED PAP SMEAR WITH HPV GENOTYPING REGARDLESS [...] Amenorrhea from Last 3 Months Results * US Non-ob Transvaginal (02/06/2025 8:18 AM EDT) Anatomical Region Laterality Modality Body Ultrasound 02/06/2025 9:02 AM EDT Narrative 02/06/2025 9:05 AM EDT PAT NAME: MIRACLE MICHAEL MED REC#: [id number] DA: 1995 PAT GEND: F PAT TYPE: O EXAM FOREIGN: [id number] REF PHYS ANA LOUIS Indication ======== Amenorrhea [...] appear Polycystic Recommendation follow-up as clinically indicated. Food Service Team Member: FAHAD SOMMER Physician: Shasha Blair MD, FACOG Electronically signed by: Shasha Blair MD, FACOG at: 09:05 Procedure Note Shasha Blair MD - 02/06/2025 PAT NAME: MIRACLE MICHAEL [facility] REC#: [id number] DA: 1995 PAT GEND: F PAT TYPE: O EXAM FOREIGN: [id number] REF PHYS ANA LOUIS Indication ======== Amenorrhea [...] appear Polycystic Recommendation follow-up as clinically indicated. Food Service Team Member: FAHAD SOMMER Physician: Shasha Blair MD, FACOG Electronically signed by: Shasha Blair MD, FACOG at: 09:05 us Ana Louis APRN [facility] US ORDERABLES Final Re sult * LIQUID-BASED PAP SMEAR WITH HPV GENOTYPING REGARDLESS OF INTERPRETATION (JAYDEN,COR,MAD) (01/07/2025 1:59 PM EDT) Reference Lab Report FINAL PROGRAM SERVICES PLANNER CYTOLOGY REPORT ---- DIAGNOSIS: Negative for intraepithelial [...] results can occur. ThinPrep Pap imagined by [employer] (AI assisted system). Screened by ELISA HOGAN [...] 1:59 PM EDT 01/07/2025 1:59 PM EDT Ana Louis OIL AND GAS SUPERINTENDENT PATHOLOGY/CYTOLOGY ORDERAB LES Final Result [facility]
[address] [place] [address], * FSH & LH (01/07/2025 9:53 AM [...] - 01/08/2025 4:36 PM EDT Performed at: [address] [place] [id number] Loss Prevention Consultant: Nazario Ortiz PhD, Phone: [phone] Ana Louis OIL AND GAS SUPERINTENDENT LAB BLOOD ORDERABLES Final Result [facility] [address] [place] [address], [facility] [address] [place] [address], * HCG, B-subunit, Quantitative (01/07/2025 9:53 AM EDT) Pathologist [facility] HCG Quantitative <1.00 mIU/mL [facility] Comment: [...] - 01/08/2025 3:35 AM EDT Performed at: [address] [id number] Loss Prevention Consultant: Hieu Go MD, Phone: [phone] Ana Louis OIL AND GAS SUPERINTENDENT LAB BLOOD ORDERABLES Final Result [facility] [address] [place] [address], [place] [phone] [facility] [address] [place] [address], [place] [phone] * Estradiol (01/07/2025 9:53 AM EDT) Estradiol 25.3 pg/mL [facility] Comment: Adult Female Range Follicular phase 12.5 - 166.0 Ovulation phase 85.8 - 498.0 Luteal phase 43.8 - 211.0 Postmenopausal <6.0 - 54.7 1st trimester 215.0 - >4300.0 Edmund ECLIA methodology Blood 01/07/2025 9:53 AM EDT 01/07/2025 Narrative [facility] - 01/08/2025 4:36 PM EDT Performed at: [address] [id number] Loss Prevention Consultant: Nazario Ortiz PhD, Phone: [phone] Ana Louis APRN LAB BLOOD ORDERABLES Final Result [facility] [address] [place] [address], [place] [phone] [facility] [address] [place] [address], [place] [phone] * Testosterone - total (01/07/2025 9:53 AM EDT) Pathologist [facility] Testosterone, Total 14 8 - 60 ng/dL [facility] Blood 01/07/2025 9:53 AM EDT 01/07/2025 Narrative [facility] - 01/08/2025 4:36 PM EDT Performed at: [address] [id number] Loss Prevention Consultant: Nazario Ortiz PhD, Phone: [phone] Ana Louis OIL AND GAS SUPERINTENDENT LAB BLOOD ORDERABLES Final Result Performing Organization Address City/[facility]/ZIP Co de Phone Number [facility] [address] [place] [address], [place] [phone] [facility] [address] [place] [address], [place] [phone] from Last 3 Months Insurance [facility] [employer] PPO Care Teams Garbage Pick Up Worker Relationship Specialty Start Date End Date Eric Freire MD [address] [place] [address] PCP - General Family Medicine 04/16/24
--- OUTSIDE RECORDS SUMMARY | 2025-03-07 12:11 | XMS_ITS | Encounter Summary ---
Author Organization [facility] Address [address] [place] [address] Care Team Providers Care Real Estate Transaction Manager Name Role Phone Eric Freire MD Primary Care Provider +1- [phone] Encounter Details Date Type Department Care Team [...] Description 08/07/2025 9:30 AM EDT Office Visit [facility] O[facility] [address] [phone] Shasha Blair MD [address] [address] documented as of this encounter Visit Diagnoses Not on filedocumented in this encounter Care Teams Real Estate Transaction Manager Relationship Specialty Start Date End Date Erci Freire MD [address] [place] [address] PCP - General Family Medicine 04/16/24 documented as of this encounter
--- OUTSIDE RECORDS SUMMARY | 2025-03-07 12:11 | XMS_ITS | Continuity of Care Document ---
Author Organization [facility], [facility] Address [address] [place] [address] Care Team Providers Care Retail Sales Vitamin Consultant Name Role Phone TAHIR CABALLERO Primary Care Provider MADHURI COATS Remediation Consultant Assessment Encounter Date Assessment Date Assessment LastModified [...] Recorded Time Primary ITP (immune thrombocyto penia) 193367337 Active 2023 Irene harris [facility] 4 16:35:27 Morbid obesity 347121016 Active 2023 Irene harris [facility] 4 17:16:15 Type 2 diabetes mellitus 35808409 Active 2023 Irene harris [facility] 17:18:17 Essential hypertensio n 75637171 Active 2023 Irene harris [facility] 4 17:18:28 Hypothyroid ism 26592861 Active 2023 Irene harris, [facility] 4 17:25:14 Sleep apnea 97227562 Active 2023 Irene harris, [facility] 4 17:25:31 Abdominal pain 30768920 Active 2024 Mabel harris [facility] 5 11:50:27 History of bariatric surgical procedure 662363074 Active 2024 LUCITA ORNELAS MD [address], [place], [address], [facility] 5 14:48:31 Problem Notes None recorded. Procedures Surgical History Date Name Laterality Status Provider Name and Address Organization Details Recorded Time 5 Telehealth completed [facility] 09/25/2024 11:09:21 5 Telehealth completed [facility] 06/18/2024 11:41:07 4 Telehealth completed Angela [address], [place], [address], [facility] 02/10/2024 11:37:12 4 Telehealth completed [facility] 01/12/2024 21:10:13 4 Telehealth completed Angela [address], [place], [address], [facility] 11/17/2023 17:17:48 4 Telehealth completed Angela [address], [place], [address], [facility] 08/22/2023 11:08:39 6 Other completed Angela [address], [place], [address], [facility] 11/17/2023 17:25:08 10/18/200 8 Back Surgery completed Irene Rosales [facility] 07/29/2023 16:29:55 bypass of stomach completed Adenike Flores [facility] 01/15/2025 13:55:59 Imaging Results None recorded. Procedure Notes None recorded. Medical Equipment None Reported. Allergies Allergen ID Allergen Name Allergen Category Reaction Reaction Severity Criticality Documentation Date Start Date Code Code System Note Provider Name and Address Organization Details Recorded Time 72304 morphine medicatio n Not available Not available Not available 07/29/2023 7052 RxNorm Irene Rosales [email or web address] [facility] 4 16:29:11 87930 rituximab medicatio n Not available Not available Not available 07/29/2023 35398 1 [facility] 16:29:11 Medications Name Sig Start [...] Updated DateTime 12/27/2024 165.1 cm 46.4 kg/m2 899396.27 g LUCITA ORNELAS MD [address], [place], [address] Surgery 12/27/2024 14:33:43 Social History Question Answer Notes LastModified by Organizat ion Details LastModified Time Tobacco Smoking Status Never Smoker Irene harris [facility] [place] [facility] 07/29/2023 16:29:49 Is Blood Transfusion Acceptable In An Emergency? Yes Information not available 07/29/2023 How Many Children Do You Have? 0 Information not available 07/29/2023 Have You Ever Been Counseled For Unhealthy Alcohol Use? No [email or web address] Information not available 01/15/2025 What Is Your Relationship Status? Information not available 07/29/2023 Sex: Unknown Functional Status Question Answer Note LastModified by Organizat ion Details LastModified Time Do you use any illicit or recreational drugs? No [email or web address] Information not available 01/15/2025 What is your level of alcohol consumption? None [email or web address] Information not available 01/15/2025 Are you currently [...] available 2024 14:33:10 Medical History Condition Response Anxiety Disorder Y [...] ICD10 Code Diagnosis IMO Codes Diagnosis Note [id number] Jeanna Faust MD [place] [facility] [address] [place] [address] 12/27/2024 14:32:48 12/29/2024 03:48:02 History of bariatric surgical procedure [id number] Z98.84 [id number] Patient has good progress and reports no [...] Brunner Member ID Guarantor Name 12/27/2024 1 [facility] [id number] Melanie Michael [id number] Miracle Alec Notes Date Note Type [...] bowel movements. LUCITA ORNELAS MD [address], [place], [address], [facility] 12/27/2024 15:32:43 OBGyn Episode No OBEpisode recorded.
--- OUTSIDE RECORDS SUMMARY | 2025-03-07 12:11 | XMS_ITS | Continuity of Care Document ---
Author Organization [facility], [facility] Address [address] [place] [address] Care Team Providers Care Machine Brush Maker Name Role Phone TAHIR CABALLERO Primary Care Provider [phone] MADHURI COATS Powder Worker Tnt Assessment No assessment recorded. Plan of Treatment [...] By Organization Details Last Modified Time 01/15/2025 [id number] When You Want to Lose Weight: Care Instructions [email or web address] Not available 01/15/2025 15:00:11 Reason for Referral None Reported. Results Created Date Observation Date Name Description Value Unit Range Abnormal Flag Note LastModifiedBy Organization Detail LastModifiedTime Result Notes None recorded. Problems Name Problem SNOMED Code Status Onset Date Resolution Date Notes Provider Name and Address Organization Details Recorded Time Primary ITP (immune thrombocyto penia) 953524364 Active 2023 Irene harris [facility] 4 16:35:27 Morbid obesity 975056989 Active 2023 Irene harris [facility] 4 17:16:15 Type 2 diabetes mellitus 04615937 Active 2023 Irene harris [facility] 4 17:18:17 Essential hypertensio n 52692942 Active 2023 Irene harris, [facility] 4 17:18:28 Hypothyroid ism 33542590 Active 2023 Irene harris, [facility] 4 17:25:14 Sleep apnea 73307545 Active 2023 Irene harris, [facility] 4 17:25:31 Abdominal pain 04059967 Active 2024 Mabel Vanegas [facility] 5 11:50:27 History of bariatric surgical procedure 390886410 Active 2024 LUCITA ORNELAS MD [address], [place], [address], [facility] 5 14:48:31 Problem Notes None recorded. Procedures Surgical History Date Name Laterality Status Provider Name and Address Organization Details Recorded Time 5 Telehealth completed [facility] 09/25/2024 11:09:21 5 Telehealth completed [facility] 06/18/2024 11:41:07 4 Telehealth completed [facility] [address], [place], [address], [facility] 02/10/2024 11:37:12 4 Telehealth completed [facility] 01/12/2024 21:10:13 4 Telehealth completed Angela [address], [place], [address], [facility] 11/17/2023 17:17:48 4 Telehealth completed Angela [address], [place], [address], [facility] 08/22/2023 11:08:39 6 Other completed Angela [address], [place], [address], [place] [facility] Surgery 11/17/2023 17:25:08 8 Back Surgery completed Irene Rosales [facility] 07/29/2023 16:29:55 bypass of stomach completed Adenike Mark [facility] 01/15/2025 13:55:59 Imaging Results None recorded. Procedure Notes None recorded. Medical Equipment None Reported. Allergies Allergen ID Allergen Name Allergen Category Reaction Reaction Severity Criticality Documentation Date Start Date Code Code System Note Provider Name and Address Organization Details Recorded Time 56159 morphine medicatio n Not available Not available Not available 07/29/2023 7052 RxNorm Irene harris [facility] 16:29:11 07865 rituximab medicatio n Not available Not available Not available 07/29/2023 63492 1 RxNorm Irene Bobby harris [facility] 16:29:11 Medications Name Sig [...] Updated DateTime 01/15/2025 165.1 cm 45.8 kg/m2 252424.9 g [facility] 01/15/2025 13:47:58 Social History Question Answer Notes LastModified by Organizat ion Details LastModified Time Tobacco Smoking Status Never Smoker Irene harris [facility] Adv Surgery 07/29/2023 16:29:49 Is Blood Transfusion Acceptable In An Emergency? Yes Information not available 07/29/2023 How Many Children Do You Have? 0 Information not available 07/29/2023 Have You Ever Been Counseled For Unhealthy Alcohol Use? No [email or web address] Information not available 01/15/2025 What Is Your Relationship Status? Information not available 07/29/2023 Sex: Unknown Functional Status Question Answer Note LastModified by Organizat ion Details LastModified Time Do you use any illicit or recreational drugs? No [email or web address] Information not available 01/15/2025 What is your level of alcohol consumption? None [email or web address] Information not available 01/15/2025 Are you currently [...] ICD10 Code Diagnosis IMO Codes Diagnosis Note [id number] Jeanna Faust MD [place] [facility] [address] [address] [place] [address] 12/27/2024 14:32:48 12/29/2024 03:48:02 History of bariatric surgical procedure [id number] Z98.84 [id number] Patient has good progress and reports no major issues. Patient will see us again in 2 months for the ~1 year follow-up. Reassured that if any questions or concerns arise to contact the office. She is motivated to get a gym membership to increase her exercising and strength training. She is also going to improve on her water intake. [id number] Jeanna Faust MD [facility] [address] [place] [address] 01/15/2025 13:28:51 01/16/2025 12:44:00 Morbid obesity 459662778 E66.01 Excellent progress 1 year after gastric [...] Brunner Member ID Guarantor Name 01/15/2025 1 [facility] [id number] Melanie Chuy Haydenrafita [id number] 53 Miracle Michael Notes Date Note Type [...] 150 minutes/week. Jeanna Faust MD [address], [place], [address], [facility] 01/15/2025 15:00:15 OBGyn Episode No OBEpisode recorded.
--- OUTSIDE RECORDS SUMMARY | 2025-03-07 12:12 | XMS_ITS | Data Portability ---
Author Organization [facility], autoContract Address [address] [place] [address] Care Team Providers Care Geoscience Technician Name Role Phone TAHIR CABALLERO Primary Care Provider [phone] MADHURI COATS [place] [phone] Assessment Encounter Date Assessment Date Assessment LastModified [...] By Organization Details Last Modified Time 01/15/2025 [id number] When You Want to Lose Weight: Care Instructions [email or web address] Not available 01/15/2025 15:00:11 Reason for Referral None Reported. Results Created Date Observation Date Name Description Value Unit Range Abnormal Flag Note LastModifiedBy Organization Detail LastModifiedTime Result Notes None recorded. Problems Name Problem SNOMED Code Status Onset Date Resolution Date Notes Provider Name and Address Organization Details Recorded Time Primary ITP (immune thrombocyto penia) 091101678 Active 2023 Irene harris [facility] 4 16:35:27 Morbid obesity 917859147 Active 2023 Irene harris [facility] 17:16:15 Type 2 diabetes mellitus 57789068 Active 2023 Irene harris [facility] 17:18:17 Essential hypertensio n 76243644 Active 2023 Irene harrsi [facility] 4 17:18:28 Hypothyroid ism 74911511 Active 2023 Irene harris [facility] 17:25:14 Sleep apnea 32561659 Active 2023 Irene harris [facility] 4 17:25:31 Abdominal pain 88006079 Active 2024 Mabel harris [facility] Surgery 5 11:50:27 History of bariatric surgical procedure 645232085 Active 2024 LUCITA ORNELAS MD [address], [place], [address], [facility] 5 14:48:31 Problem Notes None recorded. Procedures Surgical History Date Name Laterality Status Provider Name and Address Organization Details Recorded Time 5 Telehealth completed [facility] 09/25/2024 11:09:21 5 Telehealth completed [facility] 06/18/2024 11:41:07 4 Telehealth completed [facility] [address], [place], [address], [facility] 02/10/2024 11:37:12 4 Telehealth completed [facility] 01/12/2024 21:10:13 4 Telehealth completed [facility] [address], [place], [address], [facility] 11/17/2023 17:17:48 4 Telehealth completed [facility] [address], [place], [address], [facility] 08/22/2023 11:08:39 6 Other completed [facility] [address], [place], [address], [facility] 11/17/2023 17:25:08 8 Back Surgery completed Irene Rosales [facility] 07/29/2023 16:29:55 bypass of stomach completed Adenike Flores [facility] 01/15/2025 13:55:59 Imaging Results None recorded. Procedure Notes None recorded. Medical Equipment None Reported. Allergies Allergen ID Allergen Name Allergen Category Reaction Reaction Severity Criticality Documentation Date Start Date Code Code System Note Provider Name and Address Organization Details Recorded Time 64118 morphine medicatio n Not available Not available Not available 07/29/2023 7052 RxNorm Irene Rosales [facility] 4 16:29:11 99642 rituximab medicatio n Not available Not available Not available 07/29/2023 69950 1 RxNorm Irene Rosales [facility] Adv Surgery 4 16:29:11 Medications Name Sig [...] Updated DateTime 05/17/2024 165.1 cm 50.4 kg/m2 593763.49 g Irene Rosales [facility] 05/17/2024 12:19:51 Date Recorded Body weight Body mass index (BMI) Body height Provider Name and Address Organization Details Last Updated DateTime 06/18/2024 493903.12 g 49.8 kg/m2 165.1 cm [facility] 06/18/2024 11:34:25 Date Recorded Body weight Body mass index (BMI) Body height Provider Name and Address Organization Details Last Updated DateTime 09/25/2024 989585.38 g 48.4 kg/m2 165.1 cm [facility] 09/25/2024 11:05:49 Date Recorded Body height Body mass index (BMI) Body weight Provider Name and Address Organization Details Last Updated DateTime 12/27/2024 165.1 cm 46.4 kg/m2 964026.27 g LUCITA ORNELAS MD [address], [place], [address], [facility] 12/27/2024 14:33:43 Date Recorded Body height Body mass index (BMI) Body weight Provider Name and Address Organization Details Last Updated DateTime 01/15/2025 165.1 cm 45.8 kg/m2 362577.9 g Adenike Flores [facility] Surgery 01/15/2025 13:47:58 Social History Question Answer Notes LastModified by Organizat ion Details LastModified Time Tobacco Smoking Status [facility] 07/29/2023 16:29:49 Is Blood Transfusion Acceptable In An Emergency? Yes Information not available 07/29/2023 How Many Children Do You Have? 0 Information not available 07/29/2023 Have You Ever Been Counseled For Unhealthy Alcohol Use? No [email or web address] Information not available 01/15/2025 What Is Your Relationship Status? Information not available 07/29/2023 Sex: Unknown Functional Status Question Answer Note LastModified by Organizat ion Details LastModified Time Do you use any illicit or recreational drugs? No [email or web address] Information not available 01/15/2025 What is your level of alcohol consumption? None [email or web address] Information not available 01/15/2025 Are you currently [...] ICD10 Code Diagnosis IMO Codes Diagnosis Note [id number] Jeanna Faust MD [facility] [address] [facility] [place] [address] 07/29/2023 16:28:37 08/04/2023 19:37:25 Morbid obesity 465716707 E66.01 BMI 52.4. Patient interested in bariatric surgery for treatment of class 3 obesity. Type 2 den betes mellitus 67772700 Z79.4 Diagnosed 1.5 years ago. Most recent A1c 14% per patient. On basal + bolus insulin and metformin. Followed by endocrine. Essential hypertension 34279814 I10 On bisoprolol -HCTZ and nifedipine Hypothyroidism 52359517 E03.9 On levothyrox ine Sleep apnea 16387115 G47 .30 Diagnosed a year ago. Not adherent with CPAP. Primary IT P (immune thrombocytopenia) 830313411 D69.59 Diagnosed in 2020 during which she received IV steroids. Followed by hematology . Most recent platelet count 250k per patient. [id number] MD ZAK Munguia [facility] [address] [facility],[address] [place] [address] 08/22/2023 09:58:12 09/14/2023 22:52:26 Morbid obesity 849846634 E66.01 The pt is interested in surgery to help with obtaining a healthier weight in order to improve their high blood pressure and prevent the developmen t of other obesity related comorbidit ies. Type 2 den betes mellitus 51309808 Z79.4 14% 05/2023. Will re-do prior to surgery. Looking for downward trend. Pt is understand ing of this. [id number] MD ZAK Munguia [address] [facility],[address] [place] [address] 11/17/2023 17:13:31 11/18/2023 13:46:28 Morbid obesity 315063174 E66.01 I had a long discussion with [...] that time. Type 2 den betes mellitus 16747914 Z79.4 She is on oral metformin and insulin and her hemoglobin A1c has increased from 14-11 but still unacceptab ly high for surgery. I told her about exercise as a described above and asked her to remeasure in 8 weeks Primary IT P (immune thrombocytopenia) 487842627 D69.59 Patient is not on any treatment currently. Her platelet count is 170 today. This affects her with petechia In her lower legs and generalize d fatigue [id number] MABEL JEROME MD [facility] [address] [facility] [address] [place] [address] 01/12/2024 11:05:27 01/13/2024 13:53:48 Morbid obesity 613033051 E66.01 Ms. Michael is a 28 yo [...] up with us in the short and rat exterminator and understand s all the signs and symptoms that would necessitat e to call us. Starts liquid diet 01/15; emphasized importance of adequate hydration before and after surgery. Reminded having all medication s in crushable form for 6 weeks after surgery. Reviewed pre-op instructio ns and answered questions. Post-op f/u scheduled 01/25. Primary IT P (immune thrombocytopenia) 626345731 D69.59 stable for 5 years, not required any treatments with steroids.. [id number] Jeanna Faust MD [facility] [address] [address] 01/26/2024 10:16:28 01/26/2024 10:49:22 Postoperative visit 521114868 Z48.89 [id number] CHUN OWUSU MD [facility] [address] [place] [address] 02/10/2024 11:36:28 03/09/2024 03:48:44 [id number] Jeanna Faust MD [facility] [address] [facility] [address] [place] [address] 03/09/2024 11:59:54 03/12/2024 15:17:11 Postoperative visit 787937633 Z48.89 s/p OAGB 01/22 [id number] Jeanna Faust MD [facility] [address] [address] 05/17/2024 11:59:49 05/17/2024 16:22:54 Morbid obesity 299157881 E66.01 s/p OAGB Abdominal pain 67540536 R10.9 postprandi al; to start daily pepcid and decrease carbohydra te intake Type 2 den betes mellitus 31854166 Z79.4 Most recent A1c 7.8% and AM BG readings above goal. To resume metformin 500 mg BID. Encouraged follow up with PCP. [id number] MABEL JEROME MD [facility] [address] [place] [address] 06/18/2024 11:30:15 06/18/2024 15:58:36 Type 2 diabetes mellitus 92730168 Z79.4 improved, no longer using insulin or metformin last a1c was 7.8 , she has fu with her endocrinol ogist in a few weeks Morbid obesity 945345960 E66.01 encouraged pt to use baritastic applicatio [...] 2 months to discuss progress. Abdominal pain 84553783 R10.9 post prandial pain after eating c/f symptomati c gallstones . encouraged patient to fu with her PCP for RUQ u/s and may require cholecyste ctomy. persistent RUQ pain with nausea/vom iting/ and fevers/chi lls recommend pt go to the emergency room d/t risk of acute cholecysti tis. [id number] MABEL JEROME MD [facility] [address] [place] [address] 09/25/2024 10:56:24 09/25/2024 16:54:07 Morbid obesity 169661998 E66.01 current weight 291 lbs (down 64 [...] D gummie and multivitam in with iron. [id number] Jeanna Faust MD [facility] [address] [place] [address] 12/27/2024 14:32:48 12/29/2024 03:48:02 History of bariatric surgical procedure 873041418 Z98.84 [id number] Patient has good progress and reports no major issues. Patient will see us again in 2 months for the ~1 year follow-up. Reassured that if any questions or concerns arise to contact the office. She is motivated to get a gym membership to increase her exercising and strength training. She is also going to improve on her water intake. [id number] Jeanna Faust MD [facility] [address] [place] [address] 01/15/2025 13:28:51 01/16/2025 12:44:00 Morbid obesity 373618366 E66.01 Excellent progress 1 year after gastric [...] DISCOUNT Miracle Michael 09/19/2023 2 [place] [id number] Melanie Michael [id number] Miracle Michael 12/27/2024 CARRUM Miracle Michael CARRUM CARRUM Miracle Michael 01/16/2025 1 [place] [id number] Melanie Michael [id number] Miracle Michael 10/13/2023 1 [place] [id number] Melanie Michael [id number] Miracle Michael Notes Date Note Type [...] month follow up s/p OAGB 01/23/24 at [facility].Initial weight 362 lbs, BMI 60.Current weight 303 [...] to amlodipine 5 mg. RODRIGUEZ [facility] - [facility] Surgery 05/17/2024 14:49:57 06/18/2024 text/html Ms. Michael [...] removed due to symptomatic gallstones. Mabel harris [facility] Surgery 06/18/2024 11:54:55 09/25/2024 [...] gummie and multivitamin with iron. Mabel harris [facility] 09/25/2024 12:18:12 12/27/2024 text/html This [...] dysphagia.Regular bowel movements. LUCITA ORNELAS MD [address] [address],[address], [place], [address], [facility] 12/27/2024 15:32:43 01/15/2025 text/html [...] exercising 150 minutes/week. Jeanna Faust MD [address] [facility],[address], [place], [address], [facility] 01/15/2025 15:00:15 OBGyn Episode No OBEpisode recorded.
--- OUTSIDE RECORDS SUMMARY | 2025-03-07 12:12 | XMS_ITS | Referral Summary ---
Author Organization [employer] ([place], [place], [place], [place], [place]) Address [address] [place] [address] Care Team Providers Care Deputy Probation Officer Name Role Phone Eric Freire MD Primary Care Provider [phone] Aime Walker MD Unavailable [phone] Encounters Date Type Department Care Team Description 12/28/2024 Travel 12/28/2024 1:00 PM EDT Office Visit [facility] [place] [address] [place] [address] Aime Walker MD Immune thrombocytopenic purpura (HCC) 12/28/2024 Telephone [facility] [place] [address] [place] [address] Aime Walker MD Appointment from Last 3 Months Allergies Active [...] Date Benito rded Speak language other than [place] at home Not on file 04/27/2023 Want [...] 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
--- OUTSIDE RECORDS SUMMARY | 2025-03-07 12:12 | XMS_ITS | Clinical Summary ---
Author Organization [employer] ([place], [place], [place], [place], [place]) Address [address] [place] [address] Care Team Providers Care Angle Shear Set Up Operator Name Role Phone Eric Freire MD Primary Care Provider [phone] Aime Walker MD Unavailable [phone] Allergies Active Allergy Reactions Criticality Noted [...] Description 12/28/2024 1:00 PM EDT Office Visit [facility] [place] [address] [place] [address] Aime Walker MD Immune thrombocytopenic purpura (HCC) 12/28/2024 Travel 12/28/2024 Telephone [facility] [address] [place] [address] Aime Walker MD Appointment from Last 3 Months Family History [...] Date Benito rded Speak language other than Belarusian at home Not on file 04/27/2023 Want [...] 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 Not [...] Description 12/27/2025 9:00 AM EDT Office Visit [facility] [address] [place] [address] Aime Walker MD [address] [facility] [address] [facility] [address] [place] [address] Health Maintenance Due Date Last [...] topic Insurance BLUE CROSS/BLUE SHIELD Care Teams Angle Shear Set Up Operator Relationship Specialty Start Date End Date Eric Freire MD [address] [facility] [address] [place] [address] PCP - General Family Medicine 06/08/23 Aime Walker MD [address] [facility] [address] [place] [address] Hematology and Oncology 12/28/24
== END 2025-03-06 23:59 | disposition home or self-care (01) ==
LOC: LAB.DROPOF 03-07 10:54
PROVIDERS: Visit Provider Nurse Practitioner Family
DX: J02.9 Acute pharyngitis, unspecified (principal)
CPT/HCPCS: 87070